=== PATIENT | female | born 1950 | race Caucasian/White ===

== ENCOUNTER 2021-10-27 09:17 | Emergency (ER) | payer MEDICARE ==
[~2021-10-27 09:17] MED LIST: Ondansetron 4 MG/2 ML SDV IVPUSH ONE; Sodium Chloride 0.9% 1,000 ML IV SCH; Sodium Chloride 0.9% 10 ML Syringe FLUSH PRN
[2021-10-27] MEDS ORDERED: Potassium Chloride Riders 40 MEQ in Premix Bag 1 BAG IV ONE (09:45)
--- NOTE | 2021-10-27 10:11 | EDM.PDOC ---
ED HPI GENERAL MEDICAL PROBLEM - General Chief Complaint: General Stated Complaint: diarrhea Time Seen by Provider: 10/27/21 09:17 Source of Information: Reports: Patient History Limitations: Reports: No Limitations - History of Present Illness INITIAL COMMENTS - FREE TEXT/NARRATIVE: Patient presents to the Ed for diarrhea since 10/16. Denies any bad food ingestion, travel, sick contacts or chronic bowel problems. She states nothing makes the diarrhea better or worse, has at least 5 water bowel movements a day. No black, blood or mucous, and her appetite has significantly decreased due to this. Over the last couple of days she has only been drinking fluids and those have been minimal. Urine is dark. she has not seen her provider for this. No fevers or abdominal pain. Is vaccinated for covid 19. Patient has had a slow weight loss without trying of 20 pounds over the last 6 months. she had antibiotics for a foot probelm in August and then on 09/24/2021 she had an iliac stent and was placed on a blood thinner. SHe is taking this. Patient states that in the CT scan prior to this surgery, a mass was seen on her ovary and adrenal gland. She is going to see Dr. Gonzalez in [place] in 3 days for evaluation of this and in preparation for this she had a mri of the adbomen on 10/23/2021. No results yet. She decided to come in today as she is progressively more weak, but no changes in the amount or type of diarrhea Duration: Week(s):, Constant Associated Symptoms: Reports: Loss of Appetite, Weakness - Related Data Allergies Allergy/AdvReac Type Severity Reaction Status Date / Time No Known Allergies Allergy Verified 10/27/21 09:20 Home Meds: Home Meds Amoxicillin/Potassium Clav [Augmentin 875-125 Tablet] 1 each PO BID #20 tablet 10/27/21 [Rx] Clopidogrel [Plavix] 75 mg PO DAILY 10/27/21 [History] Lactobacillus Acidophilus [Probiotic] 1 each PO DAILY #30 capsule 10/27/21 [Rx] Lisinopril/Hydrochlorothiazide [Lisinopril-HCTZ 10-12.5 MG] 1 tab PO DAILY 10/27/21 [History] Potassium Chloride 20 meq PO DAILY #14 tablet.er 10/27/21 [Rx] Rosuvastatin [Crestor] 10 mg PO DAILY 10/27/21 [History] Zolpidem [Ambien] 10 mg PO BEDTIME PRN 10/27/21 [History] rOPINIRole [Requip] 0.5 mg PO BEDTIME 10/27/21 [History] Past Medical History Cardiovascular History: Reports: High Cholesterol Other Gastrointestinal History: pt states "mass around kidney or ovary". Social & Family History - Family History Family Medical History: No Pertinent Family History - Tobacco Use Tobacco Use Status *Q: Never Tobacco User Second Hand Smoke Exposure: No - Caffeine Use Caffeine Use: Reports: None - Recreational Drug Use Recreational Drug Use: No ED ROS GENERAL - Review of Systems Review Of Systems: See Below Constitutional: Reports: Malaise, Weakness, Fatigue, Decreased Appetite, Weight Loss HEENT: Reports: No Symptoms. Denies: Sinus Problem, Throat Pain, Throat Swelling Respiratory: Reports: No Symptoms. Denies: Shortness of Breath, Cough Cardiovascular: Reports: No Symptoms. Denies: Chest Pain, Dyspnea on Exertion, Edema Endocrine: Reports: No Symptoms GI/Abdominal: Reports: Diarrhea, Decreased Appetite, Nausea. Denies: Anorexia, Black Stool, Bloody Stool, Flatus, Hematemesis, Hematochezia, Mucous in Stool, Vomiting : Reports: Other (dark urine) Musculoskeletal: Reports: No Symptoms Skin: Reports: No Symptoms Neurological: Reports: No Symptoms Psychiatric: Reports: No Symptoms Hematologic/Lymphatic: Reports: No Symptoms ED EXAM, GI/ABD - Physical Exam Exam: See Below Exam Limited By: No Limitations General Appearance: Alert, WD/WN, No Apparent Distress Eyes: Bilateral: Normal Appearance, EOMI (perrla) Ears: Normal External Exam Nose: Normal Inspection Throat/Mouth: Normal Lips, Normal Teeth, Normal Voice, Other (dry mucous membranes) Head: Atraumatic, Normocephalic Neck: Normal Inspection Respiratory/Chest: No Respiratory Distress, Lungs Clear, No Accessory Muscle Use Cardiovascular: No Edema, Irregularly Irregular (normal rate) GI/Abdominal Exam: Soft, Non-Tender, No Distention, Abnormal Bowel Sounds (decreased) Extremities: Normal Inspection, Normal Range of Motion, Non-Tender, Other (skin tenting) Neurological: Alert, Oriented, CN II-XII Intact, Normal Cognition, No Mot or/Sensory Deficits Psychiatric: Normal Affect Skin Exam: Warm #1 Interpretation EKG Date: 10/27/21 Rhythm: A-Fib Rate (Beats/Min): 75 Voca: Normal QRS: Normal ST-T: Normal QT: Normal Course - Vital Signs Last Recorded V/S: Last Vital Signs Temp 36.5 C 10/27/21 12:33 Pulse 92 10/27/21 12:33 Resp 18 10/27/21 12:33 BP 104/66 10/27/21 12:33 Pulse Ox 96 10/27/21 12:33 - Orders/Labs/Meds Orders: Active Orders 24 hr Category Date Time Status Peripheral IV Care [RC] . DIRECTED Care 10/27/21 09:05 Active Abdomen Pelvis w Cont [CT] Stat Exams 10/27/21 09:45 Taken C DIFFICILE BY DNA [RM] Stat Lab 10/27/21 09:30 Ordered STOOL CULTURE [MREF] Stat Lab 10/27/21 09:30 Ordered Potassium Chloride Riders [KCL in Water 40 MEQ/100 ML] Med 10/27/21 09:45 Active 40 meq Premix Bag 1 bag IV ONETIME Sodium Chloride 0.9% [Normal Saline] 1,000 ml Med 10/27/21 09:15 Active IV ASDIRECTED Sodium Chloride 0.9% [Normal Saline] 1,000 ml Med 10/27/21 10:15 Active IV ASDIRECTED Sodium Chloride 0.9% [Saline Flush] Med 10/27/21 09:05 Active 10 ml FLUSH ASDIRECTED PRN Isolation [COMM] Stat Oth 10/27/21 09:30 Active Peripheral IV Insertion Adult [OM.PC] Routine Oth 10/27/21 09:05 Ordered Medication Orders Sodium Chloride (Normal Saline) 1,000 mls @ 1,000 mls/hr IV ASDIRECTED [facility] Last Admin: 10/27/21 09:31 Dose: 1,000 mls/hr Documented by: ROB Potassium Chloride 40 meq/ (Premix) 100 mls @ 25 mls/hr IV ONETIME ONE Stop: 10/27/21 13:44 Last Admin: 10/27/21 10:11 Dose: 25 mls/hr Documented by: ROLAND Sodium Chloride (Normal Saline) 1,000 mls @ 1,000 mls/hr IV ASDIRECTED WANDA Sodium Chloride (Sodium Chloride 0.9% 10 Ml Syringe) 10 ml FLUSH ASDIRECTED PRN PRN Reason: Keep Vein Open Labs: Laboratory Tests 10/27/21 10/27/21 10/27/21 Range/Units 09:05 09:05 09:05 WBC 13.1 H (4.0-11.0) 10^3/uL RBC 4.11 (4.00-5.50) x10^6/uL Hgb 11.7 L (12.0-16.0) g/dL Hct 34.7 L (37.0-47.0) % MCV 84.4 (83.0-97.0) fL MCH 28.5 (27.0-32.0) pg MCHC 33.7 (32.0-36.0) g/dL RDW Coeff of Reji 13.6 (11.0-15.0) % Plt Count 339 (150-400) 10^3/uL Immature Gran % (Auto) 0.3 (0.0-4.9) % Neut % (Auto) 77.6 H (41-71) % Lymph % (Auto) 13.6 L (24-44) % [place] % (Auto) 6.9 (0-10) % Eos % (Auto) 1.4 (0-6) % Baso % (Auto) 0.2 (0-1) % Neut # (Auto) 10.21 H (1.80-8.00) x10^3/uL Lymph # (Auto) 1.78 (0.60-5.00) 10^3/uL [place] # (Auto) 0.90 (0.00-1.50) 10^3/uL Eos # (Auto) 0.18 (0.00-1.50) 10^3/uL Baso # (Auto) 0.02 (0.00-0.50) 10^3/uL Immature Gran # (Auto) 0.04 (0.00-0.49) 10^3/uL Sodium 137 (136-145) mEq/L Potassium 2.9 L* D (3.5-5.0) mEq/L Chloride 100 (98-106) mEq/L Carbon Dioxide 23 (21-32) mmol/L BUN 19 H (7-18) mg/dL Creatinine 1.0 (0.6-1.0) mg/dL Est Cr Clr Drug Dosing 45.85 mL/min Estimated GFR (MDRD) 55 L (>=60) mL/min Glucose 109 H (75-99) mg/dL Lactic Acid (0.4-2.0) mmol/L Calcium 8.3 L (8.4-10.1) mg/dL Magnesium 1.9 (1.8-2.4) mg/dL Total Bilirubin 0.2 (0.0-1.0) mg/dL AST 6 L (15-37) U/L ALT 5 L (12-78) U/L Alkaline Phosphatase 109 (46-116) U/L C-Reactive Protein 6.2 H (0.2-0.8) mg/dL Total Protein 6.3 L (6.4-8.2) g/dL Albumin 2.6 L (3.4-5.0) g/dL Lipase 43 L (73-393) U/L Urine Color (YELLOW) Urine Appearance (CLEAR) Urine pH (4.5-8.0) Ur Specific [place] (1.003-1.020) Urine Protein (NEGATIVE) mg/dL Urine Glucose (UA) (NEGATIVE) mg/dL Urine Ketones (NEGATIVE) mg/dL Urine Occult Blood (NEGATIVE) Urine Nitrite (NEGATIVE) Urine Bilirubin (NEGATIVE) Urine Urobilinogen (0.2-1.0) EU/dL Ur Leukocyte Esterase (NEGATIVE) SARS CoV-2 RNA Rapid ISAAC Negative (NEGATIVE) 10/27/21 10/27/21 Range/Units 09:05 11:12 WBC (4.0-11.0) 10^3/uL RBC (4.00-5.50) x10^6/uL Hgb (12.0-16.0) g/dL Hct (37.0-47.0) % MCV (83.0-97.0) fL MCH (27.0-32.0) pg MCHC (32.0-36.0) g/dL RDW Coeff of Reji (11.0-15.0) % Plt Count (150-400) 10^3/uL Immature Gran % (Auto) (0.0-4.9) % Neut % (Auto) (41-71) % Lymph % (Auto) (24-44) % [place] % (Auto) (0-10) % Eos % (Auto) (0-6) % Baso % (Auto) (0-1) % Neut # (Auto) (1.80-8.00) x10^3/uL Lymph # (Auto) (0.60-5.00) 10^3/uL [place] # (Auto) (0.00-1.50) 10^3/uL Eos # (Auto) (0.00-1.50) 10^3/uL Baso # (Auto) (0.00-0.50) 10^3/uL Immature Gran # (Auto) (0.00-0.49) 10^3/uL Sodium (136-145) mEq/L Potassium (3.5-5.0) mEq/L Chloride (98-106) mEq/L Carbon Dioxide (21-32) mmol/L BUN (7-18) mg/dL Creatinine (0.6-1.0) mg/dL Est Cr Clr Drug Dosing mL/min Estimated GFR (MDRD) (>=60) mL/min Glucose (75-99) mg/dL Lactic Acid 0.9 (0.4-2.0) mmol/L Calcium (8.4-10.1) mg/dL Magnesium (1.8-2.4) mg/dL Total Bilirubin (0.0-1.0) mg/dL AST (15-37) U/L ALT (12-78) U/L Alkaline Phosphatase (46-116) U/L C-Reactive Protein (0.2-0.8) mg/dL Total Protein (6.4-8.2) g/dL Albumin (3.4-5.0) g/dL Lipase (73-393) U/L Urine Color Yellow (YELLOW) Urine Appearance Clear (CLEAR) Urine pH 6.0 (4.5-8.0) Ur Specific [place] 1.015 (1.003-1.020) Urine Protein Negative (NEGATIVE) mg/dL Urine Glucose (UA) Negative (NEGATIVE) mg/dL Urine Ketones Negative (NEGATIVE) mg/dL Urine Occult Blood Negative (NEGATIVE) Urine Nitrite Negative (NEGATIVE) Urine Bilirubin Negative (NEGATIVE) Urine Urobilinogen 0.2 (0.2-1.0) EU/dL Ur Leukocyte Esterase Negative (NEGATIVE) SARS CoV-2 RNA Rapid ISAAC (NEGATIVE) Meds: Medications Generic Name Dose Route Start Last Admin Trade Name Freq PRN Reason Stop Dose Admin Sodium Chloride 1,000 mls @ 1,000 mls/hr 10/27/21 09:15 10/27/21 09:31 Normal Saline IV 1,000 mls/hr ASDIRECTED WANDA Administration Potassium Chloride 40 meq/ 100 mls @ 25 mls/hr 10/27/21 09:45 10/27/21 10:11 Premix IV 10/27/21 13:44 25 mls/hr ONETIME ONE Administration Sodium Chloride 1,000 mls @ 1,000 mls/hr 10/27/21 10:15 Normal Saline IV ASDIRECTED WANDA Sodium Chloride 10 ml 10/27/21 09:05 Sodium Chloride 0.9% 10 Ml Syringe FLUSH ASDIRECTED PRN Keep Vein Open Discontinued Medications Generic Name Dose Route Start Last Admin Trade Name Freq PRN Reason Stop Dose Admin Amoxicillin/Clavulanate Potassium 1 packet 10/27/21 12:45 Take Home: Amoxicillin/Clavulanate K 875-125 Mg Tab, 2 Tab Pack PO 10/27/21 12:46 ONETIME ONE Amoxicillin/Clavulanate Potassium 1 tab 10/27/21 12:46 Amoxicillin/Clavulanate K 875-125 Mg Tab PO 10/27/21 12:47 ONETIME ONE Diphenoxylate HCl/Atropine 2 tab 10/27/21 12:45 Atropine/Diphenoxylate 0.025-2.5 Mg Tab PO 10/27/21 12:46 ONETIME ONE Iopamidol 100 ml 10/27/21 10:59 10/27/21 11:00 Iopamidol 755 Mg/Ml 100 Ml Bottle IVPUSH 10/27/21 11:00 100 ml ONETIME ONE Administration Lidocaine HCl Confirm 10/27/21 11:23 Lidocaine 1% 5 Ml Sdv Administered 10/27/21 11:24 Dose 5 ml .ROUTE .STK-MED ONE Ondansetron HCl 4 mg 10/27/21 09:05 10/27/21 09:31 Ondansetron 4 Mg/2 Ml Sdv IVPUSH 10/27/21 09:06 4 mg ONETIME ONE Administration - Radiology Interpretation Free Text/Narrative:: MRI from 10/23 is interpreted and findings with left adrenal nodule 2.1x1.4 cm consistent with a lipid poor adenoma, benign cysts in both kidneys, infrarenal adominal aortic aneurysm 4.1 cm with mural plaque/thrombus resulting in mild stenosis and questionable stenosis at the origin of the celiac artery Interpreted by radiology Ct abdomen and pelvis with IV contrast with 2.2 adrenal nodule consistent with above MRI on the left adrenal gland. large right adenexal mass 8.2x6.3 cm, infrarenal abdominal aoritic aneurysm 4.2 cm with circumferential plaque/thrombus resulting in mild stenosis. , diverticulosis with short segment wall thickening involving sigmoid colon which may represent colitis. colonoscopy recommended. endplate fractures of 12 and L1 - Re-Assessments/Exams Free Text/Narrative Re-Assessment/Exam: will start iv fluids as clinicaly dry with slightly low blood pressure at 99/52. will also give zofran 4 mg IVP. Needs labs, covid test, ct abdomen and pelvis with iv contrast. Attempted to call [facility] to read her MRI. 10/27/21 10:13 Potassium is low, will give a rider of 40 meq, continue IV fluids. slight elevation of the white blood cell count, normal mag and lactic. 10/27/21 10:[address] 10/27/21 12:09 Extensive findings communicated to the patent. Will treat the colitis with augmentin and probitoics. use imodium for diarrhea. needs to increase potassium in the diet and recheck thursday at . Discussed the adrenal mass that is least of the concerns. Discussed the ovarian mass that is getting addressed in three days discussed the endplate fractures and pain management. Discussed the aneursym and need to follow up noel with the vascular surgeon, sounds like Dr. irvin has been watching this and will follow up in november ,.. Discussed need for colonoscopy which I am sure CONTRACTS REPRESENTATIVE would also discuss prior to surgery. did feed her a little to try to get a stool sample and this was obtained. 10/27/21 13:05 Did relay all this information to the . he will pick her up,. 10/27/21 13:06 blood pressure improved to 115/76 Departure - Departure Time of Disposition: 14:00 Disposition: Home, Self-Care 01 Condition: Fair Clinical Impression: Diarrhea, Hypokalemia, Colitis, Abdominal aortic aneurysm (AAA) 3.0 cm to 5.0 cm in diameter in female, Defect of endplate of vertebra, Diverticulosis, Adrenal adenoma, Adnexal mass - Discharge Information *PRESCRIPTION DRUG MONITORING PROGRAM REVIEWED*: Not Applicable *COPY OF PRESCRIPTION DRUG MONITORING REPORT IN PATIENT VERITO: Not Applicable Prescriptions: Amoxicillin/Potassium Clav [Augmentin 875-125 Tablet] 1 each PO BID #20 tablet Potassium Chloride 20 meq PO DAILY #14 tablet.er Lactobacillus Acidophilus [Probiotic] 1 each PO DAILY #30 capsule Instructions: Adrenal Adenoma, Abdominal Aortic Aneurysm, [id number], Hypokalemia, Food Choices to Help Relieve Diarrhea, Adult, Potassium Content of Foods, Colitis, Diverticulosis, Diarrhea, Adult, [id number], Pelvic Mass, Female Referrals: Flaquita Herron PA [Primary Care Provider] - Forms: ED Department Discharge Additional Instructions: 1.You have inflammation of a section of your colon (Colitis) and you are prescribed augmentin to take twice a day for 11 days ( you were given a dose in the hospital and a tablet for this evening and tomorrow morning-then fill prescription) and a probiotic that you need to take the entire time ( 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 colonoscopy lieberman been recommended for follow up , schedule this with your provider 2. your adrenal mass is diagnosed as a lipid poor adrenal adenoma of 2.1 cm. follow up with your PCP 3. You have a large adenexal ( ovarian) mass on the right measuring 8.2 cm. Keep appointment with Dr. Gonzalez for this on Thursday. 4. Stool sample will be analyzed for further problems You will be contacted as to needs for treatment 5. your potassium was low at 2.9 today. You were given 40 meq in the IV. You need to take oral potassium tablet, electrolyte solutions and greatly increase the potassium content of food. Recheck your electrolyte levels this week. 6. You do have some endplate fractures of vertebrae T12 and L1. These may cause back pain and need follow up with PCP for pain 7. You have an abdominal aneurysm below the renal artery that is 4.2 cm. Follow up with your vascular surgeon this week about this, make Dr. Irvin aware of the recent CT scan. 8. You can take up to four immodium tablets a day for the diarrhea. You were given two in the ED. Sepsis Event Note (ED) - Evaluation Sepsis Screening Result: No Definite Risk - Focused Exam Vital Signs: Vital Signs Temp Pulse Resp BP Pulse Ox 10/27/21 12:33 36.5 C 92 18 104/66 96 10/27/21 09:17 36.0 C L 88 18 99/52 L 96 - My Orders Last 24 Hours: My Active Orders 10/27/21 09:05 Peripheral IV Care [RC] . DIRECTED Sodium Chloride 0.9% [Saline Flush] 10 ml FLUSH ASDIRECTED PRN Peripheral IV Insertion Adult [OM.PC] Routine 10/27/21 09:15 Sodium Chloride 0.9% [Normal Saline] 1,000 ml IV ASDIRECTED 10/27/21 09:30 C DIFFICILE BY DNA [RM] Stat STOOL CULTURE [MREF] Stat Isolation [COMM] Stat 10/27/21 09:45 Abdomen Pelvis w Cont [CT] Stat Potassium Chloride Riders [KCL in Water 40 MEQ/100 ML] 40 meq Premix Bag 1 bag IV ONETIME 10/27/21 10:15 Sodium Chloride 0.9% [Normal Saline] 1,000 ml IV ASDIRECTED - Assessment/Plan Last 24 Hours: My Active Orders 10/27/21 09:05 Peripheral IV Care [RC] . DIRECTED Sodium Chloride 0.9% [Saline Flush] 10 ml FLUSH ASDIRECTED PRN Peripheral IV Insertion Adult [OM.PC] Routine 10/27/21 09:15 Sodium Chloride 0.9% [Normal Saline] 1,000 ml IV ASDIRECTED 10/27/21 09:30 C DIFFICILE BY DNA [RM] Stat STOOL CULTURE [MREF] Stat Isolation [COMM] Stat 10/27/21 09:45 Abdomen Pelvis w Cont [CT] Stat Potassium Chloride Riders [KCL in Water 40 MEQ/100 ML] 40 meq Premix Bag 1 bag IV ONETIME 10/27/21 10:15 Sodium Chloride 0.9% [Normal Saline] 1,000 ml IV ASDIRECTED
[2021-10-27] MEDS ORDERED: Sodium Chloride 0.9% 1,000 ML IV SCH (10:15)
[2021-10-27] MEDS ORDERED: Iopamidol 755 Mg/ML 100 ML Bottle IVPUSH ONE (10:59)
[2021-10-27] MEDS ORDERED: Take Home: Amoxicillin/Clavulanate K 875-125 MG Tab, 2 Tab Pack PO ONE (12:45)
[2021-10-27] MEDS ORDERED: Atropine/Diphenoxylate 0.025-2.5 MG Tab PO ONE (12:45)
[2021-10-27] MEDS ORDERED: Amoxicillin/Clavulanate K 875-125 MG Tab PO ONE (12:46)
== END 2021-10-27 14:25 | disposition home or self-care (01) ==
LOC: CC.ED 09:17
DX: K52.9 Noninfective gastroenteritis and colitis, unspecified (principal); I71.4 Abdominal aortic aneurysm, without rupture; K57.90 Diverticulosis of intestine, part unspecified, without perforation or abscess without bleeding; D35.02 Benign neoplasm of left adrenal gland; E87.6 Hypokalemia; E78.00 Pure hypercholesterolemia, unspecified; Z79.02 Long term (current) use of antithrombotics/antiplatelets; Z79.899 Other long term (current) drug therapy; Z20.822 Contact with and (suspected) exposure to COVID-19
CPT/HCPCS: 36415; 74177; 80053; 81003; 83605; 83690; 83735; 85025; 86140; 93005; 96365; 96366; 96375; 99285-25; A9270-GY; J2405; J3480; J7030; Q9967; U0002

== ENCOUNTER 2021-10-29 01:22 | Emergency (ER) | payer MEDICARE ==
[2021-10-29] MEDS ORDERED: fentaNYL 50 MCG/ML SDV ONE (01:36)
[2021-10-29] MEDS ORDERED: fentaNYL 50 MCG/ML SDV IVPUSH ONE ×2 (01:47→01:55)
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
[2021-10-29 02:28] LABS: PTT,PARTIAL THROMBOPLSTIN TIME 23.2 SEC (23.2-32.3)
[2021-10-29 02:30] LABS: CHLORIDE,CL 104 mEq/L (98-106); SODIUM,NA 141 mEq/L (136-145)
[2021-10-29] MEDS ORDERED: HYDROmorphone 1 MG/ML Syringe IVPUSH ONE (02:55)
== END 2021-10-29 04:20 ==
LOC: CC.ED 01:22
DX: S72.002A Fracture of unspecified part of neck of left femur, initial encounter for closed fracture (principal); L97.529 Non-pressure chronic ulcer of other part of left foot with unspecified severity; Z79.02 Long term (current) use of antithrombotics/antiplatelets; Z79.899 Other long term (current) drug therapy; Z20.822 Contact with and (suspected) exposure to COVID-19; W18.39XA Other fall on same level, initial encounter; Y92.009 Unspecified place in unspecified non-institutional (private) residence as the place of occurrence of the external cause
CPT/HCPCS: 36415; 51702; 80053; 85025; 85610; 85730; 96374; 96375; 99285-25; J1170; J3010; U0002

== ENCOUNTER 2021-11-05 10:16 | Inpatient (IN) | payer MEDICARE ==
[2021-11-05] MEDS ORDERED: Temazepam 15 MG Cap PO PRN (16:00)
[2021-11-05] MEDS: Ciprofloxacin 500 MG Tab PO SCH (19:14)
[2021-11-05] MEDS: rOPINIRole 1 MG Tab PO SCH (19:57)
[2021-11-05] MEDS: traMADol 50 MG Tab PO PRN (19:58)
[2021-11-05] MEDS: Simvastatin 40 MG Tab PO SCH (19:58)
[2021-11-05] MEDS: Zolpidem 5 MG Tab PO PRN (20:04)
--- NOTE | 2021-11-05 21:13 | HP ---
HISTORY OF PRESENT ILLNESS: The patient is a 71-year-old female who presented with a closed hip fracture on 10/29 and was sent for repair. She had an uneventful ORIF of the hip and is now in [place] for a swing bed placement and rehab. PAST MEDICAL HISTORY: Includes a history of hypertension, hyperlipidemia, depression, adrenal adenoma, prior adnexal mass. She has had prior fractures of both her and radius and ischemia of her left foot in the past. PAST SURGICAL HISTORY: Includes an aorto-pelvic arteriogram, a humerus fracture surgery, a wrist fracture surgery. ALLERGIES: NONE. MEDICATIONS: See chart. SOCIAL HISTORY: I believe the patient is a non smoker, nondrinker, previously independent in her own home. REVIEW OF SYSTEMS: Negative. She denies that she has had any fevers, chills, cough, chest pain, or shortness of breath. Denies any issues with constipation since her surgery. Has not had any skin rashes, cellulitis, erythema. PHYSICAL EXAMINATION: GENERAL: She is pleasant, alert, and cooperative. HEENT: Grossly benign. NECK: Supple. No adenopathy felt. No supraclavicular nodes. LUNGS: Sounds are clear anteriorly. CARDIAC: Tones are regular. ABDOMEN: Soft, obese, and nontender. Good bowel sounds heard. EXTREMITIES: The left hip incision is covered and there is no obvious erythema. There is minimal swelling to the left lower extremity, and she moves all digits without problem. ASSESSMENT: 1. STATUS POST OPEN REDUCTION AND INTERNAL FIXATION OF LEFT HIP FRACTURE. 2. POSTOP ANEMIA. 3. POSTOP HYPOKALEMIA. 4. 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 5. RIGHT ADNEXAL MASS, RECENTLY FOUND DURING ADMISSION. 6. LEFT ADRENAL ADENOMA. 7. HYPERTENSION. 8. ANXIETY AND DEPRESSION. 9. HYPERLIPIDEMIA. 10.HISTORY OF RESTLESS LEGS SYNDROME. PLAN: The patient will be admitted, routine orders provided. PT will be consulted. No anticipated changes. She is on Zestoretic, and I believe that has been held since her surgery. Her blood pressures have been actually on the low end and so we will continue to hold that now. JIMENA/GONZALO /[id number]
[2021-11-06] MEDS: Ciprofloxacin 500 MG Tab PO SCH ×2 (06:46→18:33)
[2021-11-06] MEDS: Calcium Carbonate/Vitamin D3 1250 MG-5 MCG Tab PO SCH (07:33)
[2021-11-06] MEDS: Aspirin 81 MG Tab.EC PO SCH (07:33)
[2021-11-06] MEDS: Citalopram 10 MG Tab PO SCH (07:33)
[2021-11-06] MEDS: Clopidogrel 75 MG Tab PO SCH (07:34)
[2021-11-06] MEDS: traMADol 50 MG Tab PO PRN ×2 (13:18→19:32)
[2021-11-06] MEDS: rOPINIRole 1 MG Tab PO SCH (19:31)
[2021-11-06] MEDS: Simvastatin 40 MG Tab PO SCH (19:32)
[2021-11-06] MEDS: Zolpidem 5 MG Tab PO PRN (19:33)
[2021-11-06] MEDS ORDERED: Enoxaparin 40 MG/0.4 ML Syringe SUBCUT SCH (20:00)
[2021-11-07] MEDS: Ciprofloxacin 500 MG Tab PO SCH ×2 (06:14→18:50)
[2021-11-07] MEDS: Aspirin 81 MG Tab.EC PO SCH (07:57)
[2021-11-07] MEDS: Citalopram 10 MG Tab PO SCH (07:58)
[2021-11-07] MEDS: Calcium Carbonate/Vitamin D3 1250 MG-5 MCG Tab PO SCH (07:58)
[2021-11-07] MEDS: traMADol 50 MG Tab PO PRN ×3 (07:58→18:49)
[2021-11-07] MEDS: Clopidogrel 75 MG Tab PO SCH (07:58)
[2021-11-07] MEDS: rOPINIRole 1 MG Tab PO SCH (19:50)
[2021-11-07] MEDS: Simvastatin 40 MG Tab PO SCH (19:51)
[2021-11-07] MEDS: Zolpidem 5 MG Tab PO PRN (19:51)
[2021-11-08] MEDS: Ciprofloxacin 500 MG Tab PO SCH ×2 (06:15→18:39)
[2021-11-08] MEDS: Calcium Carbonate/Vitamin D3 1250 MG-5 MCG Tab PO SCH (07:07)
[2021-11-08] MEDS: Aspirin 81 MG Tab.EC PO SCH (07:08)
[2021-11-08] MEDS: Clopidogrel 75 MG Tab PO SCH (07:08)
[2021-11-08] MEDS: Citalopram 10 MG Tab PO SCH (07:08)
[2021-11-08] MEDS: traMADol 50 MG Tab PO PRN (14:38)
[2021-11-08] MEDS: Acetaminophen 325 MG Tab PO PRN (16:51)
[2021-11-08] MEDS: rOPINIRole 1 MG Tab PO SCH (19:27)
[2021-11-08] MEDS: Simvastatin 40 MG Tab PO SCH (19:27)
[2021-11-08] MEDS: Zolpidem 5 MG Tab PO PRN (19:28)
[2021-11-09] MEDS: Ciprofloxacin 500 MG Tab PO SCH ×2 (06:07→18:11)
[2021-11-09] MEDS: Calcium Carbonate/Vitamin D3 1250 MG-5 MCG Tab PO SCH (08:17)
[2021-11-09] MEDS: Citalopram 10 MG Tab PO SCH (08:18)
[2021-11-09] MEDS: Clopidogrel 75 MG Tab PO SCH (08:19)
[2021-11-09] MEDS: Aspirin 81 MG Tab.EC PO SCH (08:19)
[2021-11-09] MEDS: traMADol 50 MG Tab PO PRN ×2 (13:53→19:01)
[2021-11-09] MEDS: Simvastatin 40 MG Tab PO SCH (19:28)
[2021-11-09] MEDS: Zolpidem 5 MG Tab PO PRN (19:28)
[2021-11-09] MEDS: rOPINIRole 1 MG Tab PO SCH (19:28)
[2021-11-10] MEDS: Ciprofloxacin 500 MG Tab PO SCH ×2 (06:56→19:00)
[2021-11-10] MEDS: Aspirin 81 MG Tab.EC PO SCH (07:48)
[2021-11-10] MEDS: Calcium Carbonate/Vitamin D3 1250 MG-5 MCG Tab PO SCH (07:48)
[2021-11-10] MEDS: Citalopram 10 MG Tab PO SCH (07:48)
[2021-11-10] MEDS: Clopidogrel 75 MG Tab PO SCH (07:48)
[2021-11-10] MEDS: rOPINIRole 1 MG Tab PO SCH (19:55)
[2021-11-10] MEDS: traMADol 50 MG Tab PO PRN (19:56)
[2021-11-10] MEDS: Zolpidem 5 MG Tab PO PRN (19:56)
[2021-11-10] MEDS: Simvastatin 40 MG Tab PO SCH (19:56)
[2021-11-11] MEDS: Calcium Carbonate/Vitamin D3 1250 MG-5 MCG Tab PO SCH (08:14)
[2021-11-11] MEDS: traMADol 50 MG Tab PO PRN ×3 (08:14→20:21)
[2021-11-11] MEDS: Clopidogrel 75 MG Tab PO SCH (08:14)
[2021-11-11] MEDS: Citalopram 10 MG Tab PO SCH (08:14)
[2021-11-11] MEDS: Aspirin 81 MG Tab.EC PO SCH (08:14)
[2021-11-11] MEDS: rOPINIRole 1 MG Tab PO SCH (20:21)
[2021-11-11] MEDS: Zolpidem 5 MG Tab PO PRN (20:22)
[2021-11-11] MEDS: Simvastatin 40 MG Tab PO SCH (20:22)
[2021-11-12] MEDS: Clopidogrel 75 MG Tab PO SCH (07:53)
[2021-11-12] MEDS: Citalopram 10 MG Tab PO SCH (07:53)
[2021-11-12] MEDS: Calcium Carbonate/Vitamin D3 1250 MG-5 MCG Tab PO SCH (07:53)
[2021-11-12] MEDS: Aspirin 81 MG Tab.EC PO SCH (07:53)
[2021-11-12] MEDS: traMADol 50 MG Tab PO PRN ×2 (13:48→19:58)
[2021-11-12] MEDS: rOPINIRole 1 MG Tab PO SCH (19:57)
[2021-11-12] MEDS: Simvastatin 40 MG Tab PO SCH (19:58)
[2021-11-12] MEDS: Zolpidem 5 MG Tab PO PRN (19:58)
[2021-11-13] MEDS: Calcium Carbonate/Vitamin D3 1250 MG-5 MCG Tab PO SCH (07:28)
[2021-11-13] MEDS: Citalopram 10 MG Tab PO SCH (07:29)
[2021-11-13] MEDS: Clopidogrel 75 MG Tab PO SCH (07:29)
[2021-11-13] MEDS: Aspirin 81 MG Tab.EC PO SCH (07:29)
[2021-11-13] MEDS: traMADol 50 MG Tab PO PRN (15:21)
[2021-11-13] MEDS: Simvastatin 40 MG Tab PO SCH (20:13)
[2021-11-13] MEDS: rOPINIRole 1 MG Tab PO SCH (20:13)
[2021-11-13] MEDS: Zolpidem 5 MG Tab PO PRN (20:13)
[2021-11-14] MEDS: Calcium Carbonate/Vitamin D3 1250 MG-5 MCG Tab PO SCH (07:33)
[2021-11-14] MEDS: Citalopram 10 MG Tab PO SCH (07:34)
[2021-11-14] MEDS: traMADol 50 MG Tab PO PRN ×2 (07:34→16:34)
[2021-11-14] MEDS: Aspirin 81 MG Tab.EC PO SCH (07:34)
[2021-11-14] MEDS: Clopidogrel 75 MG Tab PO SCH (07:34)
[2021-11-14] MEDS: Acetaminophen 325 MG Tab PO PRN ×2 (12:57→19:47)
[2021-11-14] MEDS: Simvastatin 40 MG Tab PO SCH (19:47)
[2021-11-14] MEDS: rOPINIRole 1 MG Tab PO SCH (19:47)
[2021-11-14] MEDS: Zolpidem 5 MG Tab PO PRN (19:54)
[2021-11-15] MEDS: Citalopram 10 MG Tab PO SCH (07:32)
[2021-11-15] MEDS: traMADol 50 MG Tab PO PRN (07:32)
[2021-11-15] MEDS: Clopidogrel 75 MG Tab PO SCH (07:32)
[2021-11-15] MEDS: Aspirin 81 MG Tab.EC PO SCH (07:33)
[2021-11-15] MEDS: Calcium Carbonate/Vitamin D3 1250 MG-5 MCG Tab PO SCH (07:33)
--- NOTE | 2021-11-15 10:24 | PCM.DCSUM1 ---
Discharge Summary - Hospital Course Free Text/Narrative:: Mrs. Garrido is a 71 year old female that fractured her left hip on 10-29 with subsequent ORIF at [facility] in [place]. Patient returned to [facility] for swingbed admission. Has been working with physical therapy and showing improvement. Patient states her pain has been controlled with oral pain medication that she has been using as needed. States she is ready to go home to continue therapy with the aide of home health. States she has been working on taking stairs as there is 3 steps going into her house. Feels well otherwise and denies any fever or other signs of illness. States her strength is improving slowly. Diagnosis: Stroke: No Modified [place] Scale: No Symptoms at All Modified Pierron Scale Score: 0 - Discharge Data Discharge Date: 11/15/21 Discharge Disposition: Home, W Home Health Agency 06 Condition: Good - Referral to Home Health Date of Face to Face Encounter: 11/15/21 Reason for Homebound Status: S/P hip fracture Primary Care Physician: VIVEK Hastings Skilled Need: Nursing to monitor blood pressure, wound healing and pain control. PT and OT for ADLS, ambulation. - Patient Summary/Data Consults: Consultations 11/05/21 16:00 PT Evaluation and Treatment [CONS] Routine - Patient Instructions Diet: Usual Diet as Tolerated Activity: As Tolerated - Discharge Plan *PRESCRIPTION DRUG MONITORING PROGRAM REVIEWED*: No *COPY OF PRESCRIPTION DRUG MONITORING REPORT IN PATIENT VERITO: No Prescriptions/Med Rec: Calcium Carbonate/Vitamin D3 [Calcium Carbonate/Vitamin D 1250 MG - 5 MCG] 2 tab PO DAILY #60 tablet Citalopram [Citalopram HBr] 20 mg PO DAILY #30 tablet traMADol [Ultram] 50 mg PO Q6H PRN #60 tablet PRN Reason: Pain (Moderate 4-6) Home Medications: Home Meds Clopidogrel [Plavix] 75 mg PO DAILY 10/27/21 [History] Lactobacillus Acidophilus [Probiotic] 1 each PO DAILY #30 capsule 10/27/21 [Rx] Lisinopril/Hydrochlorothiazide [Lisinopril-HCTZ 10-12.5 MG] 1 tab PO DAILY 10/27/21 [History] Potassium Chloride 20 meq PO DAILY #14 tablet.er 10/27/21 [Rx] Rosuvastatin [Crestor] 10 mg PO DAILY 10/27/21 [History] Zolpidem [Ambien] 10 mg PO BEDTIME PRN 10/27/21 [History] rOPINIRole [Requip] 0.5 mg PO BEDTIME 10/27/21 [History] Aspirin [Aspirin EC] 81 mg PO DAILY 11/05/21 [History] Calcium Carbonate/Vitamin D3 [Calcium Carbonate/Vitamin D 1250 MG - 5 MCG] 2 tab PO DAILY #60 tablet 11/15/21 [Rx] Citalopram [Citalopram HBr] 20 mg PO DAILY #30 tablet 11/15/21 [Rx] traMADol [Ultram] 50 mg PO Q6H PRN #60 tablet 11/15/21 [Rx] Referrals: Flaquita Herron PA [Primary Care Provider] - (Follow up with Ritu in 2 weeks) - Discharge Summary/Plan Comment DC Time >30 min.: No Total # of Minutes for Discharge Time: 30 - General Info Functional Status: Reports: Pain Controlled - Review of Systems General: Reports: No Symptoms. Denies: Fever, Weakness HEENT: Reports: No Symptoms. Denies: Headaches, Visual Changes Pulmonary: Denies: Shortness of Breath, Cough Cardiovascular: Denies: Chest Pain, Dyspnea on Exertion, Lightheadedness Gastrointestinal: Denies: Abdominal Pain, Nausea, Vomiting Genitourinary: Denies: Dysuria, Frequency Musculoskeletal: Reports: Other (left hip pain at times) Skin: Reports: No Symptoms Neurological: Reports: No Symptoms Psychiatric: Reports: No Symptoms - Patient Data Vitals - Most Recent: Last Vital Signs Temp 98.4 F 11/15/21 08:00 Pulse 73 11/15/21 08:00 Resp 18 11/15/21 08:00 BP 132/66 11/15/21 08:00 Pulse Ox 96 11/15/21 08:00 Weight - Most Recent: 172 lb 1.6 oz Med Orders - Current: Current Medications Acetaminophen (Acetaminophen 325 Mg Tab) 650 mg PO Q4H PRN PRN Reason: Pain (Mild 1-3)/fever Last Admin: 11/14/21 19:47 Dose: 650 mg Documented by: Aspirin (Aspirin 81 Mg Tab.Ec) 81 mg PO DAILY WANDA Last Admin: 11/15/21 07:33 Dose: 81 mg Documented by: Calcium Carbonate (Calcium Carbonate/Vitamin D3 1250 Mg-5 Mcg Tab) 2 tab PO DAILY [facility] Last Admin: 11/15/21 07:33 Dose: 2 tab Documented by: Citalopram Hydrobromide (Citalopram 10 Mg Tab) 20 mg PO DAILY [facility] Last Admin: 11/15/21 07:32 Dose: 20 mg Documented by: Clopidogrel Bisulfate (Clopidogrel 75 Mg Tab) 75 mg PO DAILY [facility] Last Admin: 11/15/21 07:32 Dose: 75 mg Documented by: Ropinirole HCl (Ropinirole 1 Mg Tab) 0.5 mg PO BEDTIME [facility] Last Admin: 11/14/21 19:47 Dose: 0.5 mg Documented by: Simvastatin (Simvastatin 40 Mg Tab) 40 mg PO BEDTIME [facility] Last Admin: 11/14/21 19:47 Dose: 40 mg Documented by: Tramadol HCl (Tramadol 50 Mg Tab) 50 mg PO Q6H PRN PRN Reason: Pain (moderate 4-6) Last Admin: 11/15/21 07:32 Dose: 50 mg Documented by: Zolpidem Tartrate (Zolpidem 5 Mg Tab) 10 mg PO BEDTIME PRN PRN Reason: Sleep Last Admin: 11/14/21 19:54 Dose: 10 mg Documented by: Discontinued Medications Ciprofloxacin (Ciprofloxacin 500 Mg Tab) 500 mg PO 0700,1900 [facility] Stop: 11/10/21 23:59 Last Admin: 11/10/21 19:00 Dose: 500 mg Documented by: Enoxaparin Sodium (Enoxaparin 40 Mg/0.4 Ml Syringe) 40 mg SUBCUT Q24H [facility] Last Admin: 11/06/21 19:30 Dose: 40 mg Documented by: - Exam General: Reports: Alert, Oriented, No Acute Distress HEENT: Reports: Pupils Equal, Pupils Reactive Neck: Reports: Supple Lungs: Reports: Clear to Auscultation, Normal Respiratory Effort. Denies: Crackles, Rales, Rhonchi Cardiovascular: Reports: Regular Rate, Regular Rhythm, No Murmurs GI/Abdominal Exam: Normal Bowel Sounds, Soft, Non-Tender (Female) Exam: Deferred Rectal (Female) Exam: Deferred Back Exam: Reports: Normal Inspection Extremities: Normal Inspection, No Pedal Edema, Normal Capillary Refill. No: Increased Warmth, Redness Skin: Reports: Warm, Dry, Intact Wound/Incisions: Reports: Healing Well Neurological: Reports: No New Focal Deficit Psy/Mental Status: Reports: Alert, Normal Affect, Normal Mood
== END 2021-11-15 11:00 | disposition home health service (06) | DRG 561 ==
LOC: CC.MS 12:30 → UNDOADMIN 12:30 → CC.MS 16:00
PROVIDERS: ADMIT Family Medicine; ATTEND Family Medicine
DX: S72.002D Fracture of unspecified part of neck of left femur, subsequent encounter for closed fracture with routine healing (principal); I10 Essential (primary) hypertension; E78.5 Hyperlipidemia, unspecified; F32.A Depression, unspecified; D35.00 Benign neoplasm of unspecified adrenal gland; D64.9 Anemia, unspecified; E87.6 Hypokalemia; I73.9 Peripheral vascular disease, unspecified; F41.9 Anxiety disorder, unspecified; G25.81 Restless legs syndrome; Z79.82 Long term (current) use of aspirin; Z98.890 Other specified postprocedural states; Z79.899 Other long term (current) drug therapy
CPT/HCPCS: 97110-GP; 97116-GP; 97161-GP; 97530-GP; A9270-GY; J1650

== ENCOUNTER 2021-11-19 05:29 | Inpatient (IN) | payer MEDICARE ==
--- NOTE | 2021-11-19 06:39 | EDM.PDOC ---
<Shelley De La O - Last Filed: 11/19/21 07:15> ED HPI GENERAL MEDICAL PROBLEM - General Chief Complaint: General Stated Complaint: fall Time Seen by Provider: 11/19/21 06:25 Source of Information: Reports: Patient, RN History Limitations: Reports: No Limitations - History of Present Illness INITIAL COMMENTS - FREE TEXT/NARRATIVE: States that she slipped off the bed this morning getting up to go to the . She had a recent hip fracture that she is concerned about reinjury to. She denies any pain to the hip at this time. She called ambulance to help her off the floor as her couldn't do it on his own. She states that she feels "a little" dizzy this morning. Staff relates that she just went home from the hospital last Thursday. She had the same symptoms in the hospital. She does have some depression and admits that she does feel depressed. She is taking her meds. Onset: Today Location: Reports: Lower Extremity, Left - Related Data Allergies Allergy/AdvReac Type Severity Reaction Status Date / Time No Known Allergies Allergy Verified 11/19/21 15:06 Home Meds: Home Meds Clopidogrel [Plavix] 75 mg PO DAILY 10/27/21 [History] Lactobacillus Acidophilus [Probiotic] 1 each PO DAILY #30 capsule 10/27/21 [Rx] Lisinopril/Hydrochlorothiazide [Lisinopril-HCTZ 10-12.5 MG] 1 tab PO DAILY 10/27/21 [History] Potassium Chloride 20 meq PO DAILY #14 tablet.er 10/27/21 [Rx] Rosuvastatin [Crestor] 10 mg PO DAILY 10/27/21 [History] Zolpidem [Ambien] 10 mg PO BEDTIME PRN 10/27/21 [History] rOPINIRole [Requip] 0.5 mg PO BEDTIME 10/27/21 [History] Calcium Carbonate/Vitamin D3 [Calcium Carbonate/Vitamin D 1250 MG - 5 MCG] 2 tab PO DAILY #60 tablet 11/15/21 [Rx] Citalopram [Citalopram HBr] 20 mg PO DAILY #30 tablet 11/15/21 [Rx] traMADol [Ultram] 50 mg PO Q6H PRN #60 tablet 11/15/21 [Rx] Past Medical History Cardiovascular History: Reports: High Cholesterol Gastrointestinal History: Reports: Other (See Below) Other Gastrointestinal History: pt states "mass around kidney or ovary". - Infectious Disease History Infectious Disease History: Reports: None Social & Family History - Family History Family Medical History: No Pertinent Family History - Tobacco Use Tobacco Use Status *Q: Never Tobacco User Second Hand Smoke Exposure: No - Caffeine Use Caffeine Use: Reports: Coffee ED ROS GENERAL - Review of Systems Review Of Systems: See Below Constitutional: Reports: Weakness. Denies: Fever, Chills HEENT: Reports: No Symptoms Respiratory: Reports: No Symptoms Cardiovascular: Reports: No Symptoms GI/Abdominal: Reports: No Symptoms Musculoskeletal: Reports: Leg Pain Neurological: Reports: No Symptoms ED EXAM, GENERAL - Physical Exam Exam: See Below Exam Limited By: No Limitations General Appearance: Alert, WD/WN, Anxious Ears: Normal External Exam, Normal Canal, Normal TMs Nose: Normal Inspection Throat/Mouth: Normal Inspection, Normal Oropharynx Head: Atraumatic, Normocephalic Neck: Normal Inspection, Supple, Non-Tender Respiratory/Chest: No Respiratory Distress, Lungs Clear, Normal Breath Sounds Cardiovascular: Regular Rate, Rhythm, No Edema GI/Abdominal: Normal Bowel Sounds, Soft, Non-Tender Back Exam: Normal Inspection Extremities: Non-Tender, No Pedal Edema, Other (She is able to ambulate with assist to hold on as she does not have a walker with her. She was able to bear weight to the bathroom.) Neurological: Alert, Oriented Course - Re-Assessments/Exams Free Text/Narrative Re-Assessment/Exam: 11/19/21 07:15 In to discuss low K+ level. She will stay as extended stay ER and receive 40 meq of potassium IV and then if stable will be discharged home. Will need to increase her home K+ at discharge. Departure - Departure Disposition: Refer to Observation Clinical Impression: Fever of unknown origin, Hypokalemia, Weakness Fall in home Qualifiers: Encounter type: initial encounter Qualified Code(s): W19.XXXA - Unspecified fall, initial encounter; Y92.009 - Unspecified place in unspecified non- institutional (private) residence as the place of occurrence of the external cause Depression Qualifiers: Depression Type: major depressive disorder Major depression recurrence: unspecified whether recurrent Active/Remission status: currently active Major depression episode severity: severe Psychotic features: without psychotic features Qualified Code(s): F32.2 - Major depressive disorder, single episode, severe without psychotic features - Discharge Information Sepsis Event Note (ED) - Evaluation Sepsis Screening Result: No Definite Risk - Problem List & Annotations (1) Fall in home SNOMED Code(s): 71081990 Code(s): W19.XXXA - UNSPECIFIED FALL, INITIAL ENCOUNTER; Y92.009 - UNSP PLACE IN UNSP NON-INSTITUT (PRIVATE) RESIDENCE PLACE Status: Acute Priority: High Current Visit: Yes Qualifiers: Encounter type: initial encounter Qualified Code(s): W19.XXXA - Unspecified fall, initial encounter; Y92.009 - Unspecified place in unspecified non- institutional (private) residence as the place of occurrence of the external c ause (2) Hypokalemia SNOMED Code(s): 40548441 Code(s): E87.6 - HYPOKALEMIA Status: Acute Priority: High Current Visit: No - Problem List Review Problem List Initiated/Reviewed/Updated: Yes <Serina Massey - Last Filed: 11/19/21 17:03> Course - Vital Signs Last Recorded V/S: Last Vital Signs Temp 101.7 F H 11/19/21 16:00 Pulse 80 11/19/21 16:00 Resp 16 11/19/21 16:00 BP 114/50 L 11/19/21 16:00 Pulse Ox 94 L 11/19/21 16:00 - Orders/Labs/Meds Orders: Active Orders 24 hr Category Date Time Status Intake and Output [RC] 0600,1800 Care 11/19/21 15:00 Active Oxygen Therapy [RC] .PRN Care 11/19/21 15:00 Active Pulse Oximetry [RC] .PRN Care 11/19/21 15:00 Active Up With Assistance [RC] .PRN Care 11/19/21 15:00 Active Vital Signs [RC] 0000,0400,0800,1200,1600,2000,0000 Care 11/19/21 15:00 Active Chest 1V Frontal [CR] Stat Exams 11/19/21 13:22 Taken Femur Min 2V Lt [CR] Routine Exams 11/19/21 Taken CULTURE BLOOD [BC] Stat Lab 11/19/21 13:25 Received CULTURE BLOOD [BC] Stat Lab 11/19/21 13:30 Received Acetaminophen [TylenoL] Med 11/19/21 15:00 Active 650 mg PO Q4H PRN Aspirin [Halfprin] Med 11/20/21 08:00 Active 81 mg PO DAILY Calcium Carbonate/Vitamin D3 [Calcium Carbonate/Vitamin Med 11/20/21 08:00 Active D 1250 MG - 5 MCG] 2 tab PO DAILY Clopidogrel [Plavix] Med 11/19/21 15:00 Active 75 mg PO DAILY NS + KCl 20mEq/L [Normal Saline with 20 mEq KCl] 1,000 Med 11/19/21 15:00 Active ml IV ASDIRECTED Resuscitation Status Routine Resus Stat 11/19/21 13:54 Ordered Medication Orders Acetaminophen (Acetaminophen 325 Mg Tab) 650 mg PO Q4H PRN PRN Reason: Pain (Mild 1-3)/fever Aspirin (Aspirin 81 Mg Tab.Ec) 81 mg PO DAILY [facility] Calcium Carbonate (Calcium Carbonate/Vitamin D3 1250 Mg-5 Mcg Tab) 2 tab PO DAILY [facility] Citalopram Hydrobromide (Citalopram 10 Mg Tab Ptom) 20 mg PO DAILY [facility] Clopidogrel Bisulfate (Clopidogrel 75 Mg Tab Ptom) 75 mg PO DAILY [facility] Potassium Chloride/Sodium Chloride (Normal Saline With 20 Meq Kcl) 1,000 mls @ 100 mls/hr IV ASDIRECTED WANDA Stop: 11/21/21 00:59 Lactobacillus Acidophilus [ Probiotic] 1 Capsule Ptom 0 each PO DAILY [facility] Potassium Chloride 20 Meq Tablet.Er Ptom 0 meq PO DAILY [facility] Non-Formulary Medication (Ropinirole [Requip]) 0.5 mg PO BEDTIME WANDA Rosuvastatin [ Crestor] 10 Mg Tablet Ptom 0 mg PO BEDTIME [facility]AN[facility] Zolpidem 10 Mg (Tablet Ptom) 0 mg PO BEDTIME PRN PRN Reason: Sleep Lisinopril/Hydrochlorothiazide 10-12.5mg Tab Ptom 0 tab PO DAILY [facility] Labs: Laboratory Tests 11/19/21 11/19/21 11/19/21 Range/Units 06:45 06:45 12:59 WBC 5.8 (4.0-11.0) 10^3/uL RBC 4.02 (4.00-5.50) x10^6/uL Hgb 10.8 L (12.0-16.0) g/dL Hct 34.9 L (37.0-47.0) % MCV 86.8 (83.0-97.0) fL MCH 26.9 L (27.0-32.0) pg MCHC 30.9 L (32.0-36.0) g/dL RDW Coeff of Reji 16.0 H (11.0-15.0) % Plt Count 293 (150-400) 10^3/uL Immature Gran % (Auto) 0.2 (0.0-4.9) % Neut % (Auto) 83.0 H (41-71) % Lymph % (Auto) 6.3 L (24-44) % [place] % (Auto) 10.3 H (0-10) % Eos % (Auto) 0.0 (0-6) % Baso % (Auto) 0.2 (0-1) % Neut # (Auto) 4.85 (1.80-8.00) x10^3/uL Lymph # (Auto) 0.37 L (0.60-5.00) 10^3/uL [place] # (Auto) 0.60 (0.00-1.50) 10^3/uL Eos # (Auto) 0.00 (0.00-1.50) 10^3/uL Baso # (Auto) 0.01 (0.00-0.50) 10^3/uL Immature Gran # (Auto) 0.01 (0.00-0.49) 10^3/uL Sodium 138 (136-145) mEq/L Potassium 2.9 L* D (3.5-5.0) mEq/L Chloride 99 (98-106) mEq/L Carbon Dioxide 26 (21-32) mmol/L BUN 16 (7-18) mg/dL Creatinine 0.8 (0.6-1.0) mg/dL Est Cr Clr Drug Dosing 52.49 mL/min Estimated GFR (MDRD) > 60 (>=60) mL/min Glucose 117 H (75-99) mg/dL Calcium 8.6 (8.4-10.1) mg/dL Urine Color Dark yellow (YELLOW) Urine Appearance Clear (CLEAR) Urine pH 5.5 (4.5-8.0) Ur Specific [place] >= 1.030 H (1.003-1.020) Urine Protein 30 H (NEGATIVE) mg/dL Urine Glucose (UA) Negative (NEGATIVE) mg/dL Urine Ketones 15 H (NEGATIVE) mg/dL Urine Occult Blood Trace-intact H (NEGATIVE) Urine Nitrite Negative (NEGATIVE) Urine Bilirubin Small H (NEGATIVE) Urine Urobilinogen 0.2 (0.2-1.0) EU/dL Ur Leukocyte Esterase Negative (NEGATIVE) Urine RBC 0-5 (0-5) /HPF Urine WBC Not seen (0-5) /HPF Ur Epithelial Cells Moderate H (NOT SEEN) /HPF Urine Mucus Few H (NOT SEEN) /HPF Meds: Medications Generic Name Dose Route Start Last Admin Trade Name Freq PRN Reason Stop Dose Admin Acetaminophen 650 mg 11/19/21 15:00 Acetaminophen 325 Mg Tab PO Q4H PRN Pain (Mild 1-3)/fever Aspirin 81 mg 11/20/21 08:00 Aspirin 81 Mg Tab.Ec PO DAILY [facility]ANDA Calcium Carbonate 2 tab 11/20/21 08:00 Calcium Carbonate/Vitamin D3 1250 Mg-5 Mcg Tab PO DAILY [facility] Citalopram Hydrobromide 20 mg 11/19/21 16:45 Citalopram 10 Mg Tab Ptom PO DAILY [facility] Clopidogrel Bisulfate 75 mg 11/19/21 15:00 Clopidogrel 75 Mg Tab Ptom PO DAILY [facility] Potassium Chloride/Sodium Chloride 1,000 mls @ 100 mls/hr 11/19/21 15:00 Normal Saline With 20 Meq Kcl IV 11/21/21 00:59 ASDIRECTED WANDA Lactobacillus 0 each 11/20/21 08:00 Acidophilus [ PO Probiotic] 1 Capsule DAILY WANDA Ptom Potassium Chloride 0 meq 11/19/21 17:30 20 Meq Tablet.Er PO Ptom DAILY [facility]AN[facility] Non-Formulary Medication 0.5 mg 11/19/21 20:00 Ropinirole [Requip] PO BEDTIME WANDA Rosuvastatin [ 0 mg 11/19/21 20:00 Crestor] 10 Mg PO Tablet Ptom BEDTIME WANDA Zolpidem 10 Mg 0 mg 11/19/21 15:16 Tablet Ptom PO BEDTIME PRN Sleep Lisinopril/ 0 tab 11/19/21 16:45 Hydrochlorothiazide PO 10-12.5mg Tab Ptom DAILY [facility]AN[facility] Discontinued Medications Generic Name Dose Route Start Last Admin Trade Name Freq PRN Reason Stop Dose Admin Citalopram Hydrobromide 20 mg 11/19/21 15:00 Citalopram 10 Mg Tab PO DAILY WANDA Citalopram Hydrobromide 20 mg 11/19/21 15:00 Citalopram 10 Mg Tab Ptom PO DAILY [facility] Enoxaparin Sodium 30 mg 11/19/21 15:00 Enoxaparin 30 Mg/0.3 Ml Syringe SUBCUT Q24H WANDA Potassium Chloride 40 meq/ 100 mls @ 25 mls/hr 11/19/21 07:10 11/19/21 07:57 Premix IV 11/19/21 11:09 25 mls/hr ONETIME ONE Administration Sodium Chloride 500 mls @ 25 mls/hr 11/19/21 07:30 11/19/21 07:58 Normal Saline IV 25 mls/hr ASDIRECTED WANDA Administration Non-Formulary Medication 1 each 11/20/21 08:00 Lactobacillus Acidophilus [Probiotic] PO DAILY [facility] Non-Formulary Medication 1 tab 11/19/21 15:00 Lisinopril/Hydrochlorothiazide PO DAILY [facility] Non-Formulary Medication 20 meq 11/19/21 15:00 Potassium Chloride [Potassium Chloride] PO DAILY [facility] Non-Formulary Medication 0.5 mg 11/19/21 20:00 Ropinirole [Requip] PO BEDTIME WANDA Non-Formulary Medication 10 mg 11/20/21 08:00 Rosuvastatin [Crestor] PO DAILY [facility]AN[facility] Non-Formulary Medication 10 mg 11/19/21 15:00 Zolpidem PO BEDTIME PRN Sleep Lisinopril/ 0 tab 11/19/21 15:00 Hydrochlorothiazide PO 10-12.5mg Tab Ptom DAILY [facility]AN[facility] - Re-Assessments/Exams Free Text/Narrative Re-Assessment/Exam: 11/19/21 12:40 Resumed care of this patient. Patient now febrile with temp 101.5. Will get UA as well as blood cultures and CXR and update once results available. adamant that he will not be taking patient home as he is unable to care for her. 11/19/21 13:52 at bedside. Discussed further lab workup. UA is negative. Does appear dehydrated. Will cautiously give some IVF as patient has not been eating or drinking. Is depressed and cries when discussing admission and possible SNF admit. Will admit to observation for further workup and safe discharge planning. Case managment consult for assistance with DC planning. Patient will likely need SNF placement as unable to care for patient. Would like mental health evaluation as well due to severe depression, but unfortunatly our mental health provider is not in office this week. Admit to observation. Departure - Departure Time of Disposition: 13:30 Condition: Fair Sepsis Event Note (ED) - Focused Exam Vital Signs: Vital Signs Temp Pulse Resp BP Pulse Ox 11/19/21 13:36 101.5 F H 87 18 115/56 L 97 11/19/21 09:05 100.4 F 79 20 112/57 L 97 11/19/21 05:29 99.5 F 83 18 134/67 95 - Problem List & Annotations (1) Fever of unknown origin SNOMED Code(s): 6782957 Code(s): R50.9 - FEVER, UNSPECIFIED Status: Acute Current Visit: Yes (2) Depression SNOMED Code(s): 51443474 Code(s): F32.A - DEPRESSION, UNSPECIFIED Status: Acute Current Visit: Yes Qualifiers: Depression Type: major depressive disorder Major depression recurrence: unspecified whether recurrent Active/Remission status: currently active Major depression episode severity: severe Psychotic features: without psychotic features Qualified Code(s): F32.2 - Major depressive disorder, single episode, severe without psychotic features (3) Fall in home SNOMED Code(s): 61741089 Code(s): W19.XXXA - UNSPECIFIED FALL, INITIAL ENCOUNTER; Y92.009 - UNSP PLACE IN UNSP NON-INSTITUT (PRIVATE) RESIDENCE PLACE Status: Acute Priority: High Current Visit: Yes Qualifiers: Encounter type: initial encounter Qualified Code(s): W19.XXXA - Unspecified fall, initial encounter; Y92.009 - Unspecified place in unspecified non- institutional (private) residence as the place of occurrence of the external cause (4) Hypokalemia SNOMED Code(s): 35347295 Code(s): E87.6 - HYPOKALEMIA Status: Acute Priority: High Current Visit: Yes (5) Weakness SNOMED Code(s): 28477182 Code(s): R53.1 - WEAKNESS Status: Acute Current Visit: Yes - My Orders Last 24 Hours: My Active Orders 11/19/21 13:22 Chest 1V Frontal [CR] Stat 11/19/21 13:25 CULTURE BLOOD [BC] Stat 11/19/21 13:30 CULTURE BLOOD [BC] Stat 11/19/21 13:54 Resuscitation Status Routine 11/19/21 15:00 Acetaminophen [TylenoL] 650 mg PO Q4H PRN Clopidogrel [Plavix] 75 mg PO DAILY NS + KCl 20mEq/L [Normal Saline with 20 mEq KCl] 1,000 ml IV ASDIRECTED 11/19/21 15:00 Intake and Output [RC] 0600,1800 Oxygen Therapy [RC] .PRN Pulse Oximetry [RC] .PRN Up With Assistance [RC] .PRN Vital Signs [RC] 0000,0400,0800,1200,1600,2000,0000 11/20/21 08:00 Aspirin [Halfprin] 81 mg PO DAILY Calcium Carbonate/Vitamin D3 [Calcium Carbonate/Vitamin D 1250 MG - 5 MCG] 2 tab PO DAILY - Assessment/Plan Admission H&P: Please use this note as an admission H&P Last 24 Hours: My Active Orders 11/19/21 13:22 Chest 1V Frontal [CR] Stat 11/19/21 13:25 CULTURE BLOOD [BC] Stat 11/19/21 13:30 CULTURE BLOOD [BC] Stat 11/19/21 13:54 Resuscitation Status Routine 11/19/21 15:00 Acetaminophen [TylenoL] 650 mg PO Q4H PRN Clopidogrel [Plavix] 75 mg PO DAILY NS + KCl 20mEq/L [Normal Saline with 20 mEq KCl] 1,000 ml IV ASDIRECTED 11/19/21 15:00 Intake and Output [RC] 0600,1800 Oxygen Therapy [RC] .PRN Pulse Oximetry [RC] .PRN Up With Assistance [RC] .PRN Vital Signs [RC] 0000,0400,0800,1200,1600,2000,0000 11/20/21 08:00 Aspirin [Halfprin] 81 mg PO DAILY Calcium Carbonate/Vitamin D3 [Calcium Carbonate/Vitamin D 1250 MG - 5 MCG] 2 tab PO DAILY Assessment:: Fever of unknown origin Fall in home Hypokalemia Weakness Depression Plan: I resumed care of this patient. During extended ED stay, patient spiked temp of 101.5. UA, blood cultures and CXR obtained. No obvious cause of fever. Patient is weak and more confused than baseline. reports he cannot care for patient at home. Refuses discharge to home. Will admit to observation for further monitoring/workup in regards to fever. Will cautiously give patient IVF with potassium through the night as she is not eating/drinking much. Will hold Tramadol at this time to see if this may be worsening her confusion. Case management consult for assistance with safe discharge planning. Patient admitted to observation.
[2021-11-19 06:53] LABS: CHLORIDE,CL 99 mEq/L (98-106); SODIUM,NA 138 mEq/L (136-145)
[2021-11-19] MEDS ORDERED: Potassium Chloride Riders 40 MEQ in Premix Bag 1 BAG IV ONE (07:10)
[2021-11-19] MEDS ORDERED: Sodium Chloride 0.9% 500 ML IV SCH (07:30)
[2021-11-19] MEDS ORDERED: CITALOPRAM 10 MG PO SCH (15:00)
[2021-11-19] MEDS ORDERED: HYDROCHLOROTHIAZIDE PO SCH (15:00)
[2021-11-19] MEDS ORDERED: Enoxaparin 30 MG/0.3 ML Syringe SUBCUT SCH (15:00)
[2021-11-19] MEDS ORDERED: Non-Formulary Medication 1 Each (Lisinopril/Hydrochlorothiazide 1 TAB Tablet) PO SCH (15:00)
[2021-11-19] MEDS ORDERED: Non-Formulary Medication 1 Each (Zolpidem 10 MG Tablet) PO PRN (15:00)
[2021-11-19] MEDS ORDERED: LISINOPRIL PO SCH (15:00)
[2021-11-19] MEDS ORDERED: Non-Formulary Medication 1 Each (Potassium Chloride [Potassium Chloride] 20 MEQ Tablet.Er) PO SCH (15:00)
[2021-11-19] MEDS ORDERED: Citalopram 10 MG Tab PO SCH (15:00)
[2021-11-19] MEDS ORDERED: ZOLPIDEM 10 MG PO PRN (15:16)
[2021-11-19] MEDS: Acetaminophen 325 MG Tab PO PRN (16:59)
[2021-11-19] MEDS: POTASSIUM CHLORIDE 20 MEQ PO SCH (17:01)
[2021-11-19] MEDS: CITALOPRAM 10 MG PO SCH (17:02)
[2021-11-19] MEDS: HYDROCHLOROTHIAZIDE PO SCH (17:02)
[2021-11-19] MEDS: LISINOPRIL PO SCH (17:02)
[2021-11-19] MEDS: NS + KCl 20mEq/L 1,000 ML IV SCH (19:28)
[2021-11-19] MEDS ORDERED: ROSUVASTATIN 10 MG PO SCH (20:00)
[2021-11-19] MEDS ORDERED: Non-Formulary Medication 1 Each (Ropinirole [Requip] 0.5 MG Tablet) PO SCH (20:00)
[2021-11-20] MEDS: Acetaminophen 325 MG Tab PO PRN ×3 (00:21→19:38)
[2021-11-20] MEDS: NS + KCl 20mEq/L 1,000 ML IV SCH ×2 (04:59→19:35)
[2021-11-20] MEDS: Aspirin 81 MG Tab.EC PO SCH (07:34)
[2021-11-20] MEDS: Calcium Carbonate/Vitamin D3 1250 MG-5 MCG Tab PO SCH (07:35)
[2021-11-20] MEDS: LACTOBACILLUS ACIDOPHILUS PO SCH (07:35)
[2021-11-20] MEDS: POTASSIUM CHLORIDE 20 MEQ PO SCH (07:36)
[2021-11-20] MEDS ORDERED: Non-Formulary Medication 1 Each (Rosuvastatin [Crestor] 10 MG Tablet) PO SCH (08:00)
[2021-11-20] MEDS ORDERED: Non-Formulary Medication 1 Each (Lactobacillus Acidophilus [Probiotic] 1 EACH Capsule) PO SCH (08:00)
[2021-11-20 08:26] LABS: CHLORIDE,CL 101 mEq/L (98-106); SODIUM,NA 136 mEq/L (136-145)
[2021-11-20] MEDS: LISINOPRIL PO SCH (08:32)
[2021-11-20] MEDS: HYDROCHLOROTHIAZIDE PO SCH (08:32)
[2021-11-20] MEDS: CITALOPRAM 10 MG PO SCH (08:32)
[2021-11-20] MEDS ORDERED: Oxyquinoline/Emollient 0.3% Oint 1 OZ Canister TOP PRN (11:32)
--- NOTE | 2021-11-20 11:38 | PCM.PN ---
- General Info Date of Service: 11/20/21 Subjective Update: Rosi is a 71 yo female who was admitted to the hospital yesterday with hypokalemia and fever of unknown origin. Patient has been weak and not tolerating diet the last few days. Patient had multiple bouts of diarrhea through out the evening and last night. She admits it seems to have slowed down this morning but has been really tired today from being up all night. She denies any other complaints at this time. Patient did continue to have a low grade fever this morning. She admits her butt is sore now from all the diarrhea. is present and is concerned with patient being sent home and not ready. They have discussed usp placement as well as he doesn't feel he is able to care for her with her current state. - Review of Systems General: Reports: Fever, Fatigue HEENT: Reports: No Symptoms Pulmonary: Reports: No Symptoms Cardiovascular: Reports: No Symptoms Gastrointestinal: Reports: Decreased Appetite, Diarrhea, Flatus. Denies: Abdominal Pain, Melena Genitourinary: Reports: No Symptoms Musculoskeletal: Reports: No Symptoms Skin: Reports: No Symptoms Neurological: Reports: No Symptoms Psychiatric: Reports: Depression - Patient Data Vitals - Most Recent: Last Vital Signs Temp 100 F 11/20/21 07:43 Pulse 103 H 11/20/21 07:43 Resp 16 11/20/21 07:43 BP 115/63 11/20/21 07:43 Pulse Ox 96 11/20/21 07:43 Weight - Most Recent: 162 lb 14.4 oz I&O - Last 24 Hours: Intake & Output 11/19/21 11/20/21 11/20/21 22:59 06:59 14:59 Intake Total 240 1252 Output Total 0 100 Balance 240 1152 Lab Results Last 24 Hours: Laboratory Results - last 24 hr 11/19/21 11/20/21 11/20/21 Range/Units 12:59 07:00 08:14 WBC (4.0-11.0) 10^3/uL RBC (4.00-5.50) x10^6/uL Hgb (12.0-16.0) g/dL Hct (37.0-47.0) % MCV (83.0-97.0) fL MCH (27.0-32.0) pg MCHC (32.0-36.0) g/dL RDW Coeff of Reji (11.0-15.0) % Plt Count (150-400) 10^3/uL Immature Gran % (Auto) (0.0-4.9) % Neut % (Auto) (41-71) % Lymph % (Auto) (24-44) % [place] % (Auto) (0-10) % Eos % (Auto) (0-6) % Baso % (Auto) (0-1) % Neut # (Auto) (1.80-8.00) x10^3/uL Lymph # (Auto) (0.60-5.00) 10^3/uL [place] # (Auto) (0.00-1.50) 10^3/uL Eos # (Auto) (0.00-1.50) 10^3/uL Baso # (Auto) (0.00-0.50) 10^3/uL Immature Gran # (Auto) (0.00-0.49) 10^3/uL Sodium (136-145) mEq/L Potassium (3.5-5.0) mEq/L Chloride (98-106) mEq/L Carbon Dioxide (21-32) mmol/L BUN (7-18) mg/dL Creatinine (0.6-1.0) mg/dL Est Cr Clr Drug Dosing mL/min Estimated GFR (MDRD) (>=60) mL/min Glucose (75-99) mg/dL Calcium (8.4-10.1) mg/dL Magnesium 1.7 L (1.8-2.4) mg/dL Total Bilirubin (0.0-1.0) mg/dL AST (15-37) U/L ALT (12-78) U/L Alkaline Phosphatase (46-116) U/L Total Protein (6.4-8.2) g/dL Albumin (3.4-5.0) g/dL Urine Color Dark yellow (YELLOW) Urine Appearance Clear (CLEAR) Urine pH 5.5 (4.5-8.0) Ur Specific [place] >= 1.030 H (1.003-1.020) Urine Protein 30 H (NEGATIVE) mg/dL Urine Glucose (UA) Negative (NEGATIVE) mg/dL Urine Ketones 15 H (NEGATIVE) mg/dL Urine Occult Blood Trace-intact H (NEGATIVE) Urine Nitrite Negative (NEGATIVE) Urine Bilirubin Small H (NEGATIVE) Urine Urobilinogen 0.2 (0.2-1.0) EU/dL Ur Leukocyte Esterase Negative (NEGATIVE) Urine RBC 0-5 (0-5) /HPF Urine WBC Not seen (0-5) /HPF Ur Epithelial Cells Moderate H (NOT SEEN) /HPF Urine Mucus Few H (NOT SEEN) /HPF SARS-CoV-2 RNA (ISAAC) Negative (NEGATIVE) 11/20/21 11/20/21 Range/Units 08:14 08:14 WBC 8.1 (4.0-11.0) 10^3/uL RBC 3.68 L (4.00-5.50) x10^6/uL Hgb 9.8 L (12.0-16.0) g/dL Hct 31.4 L (37.0-47.0) % MCV 85.3 (83.0-97.0) fL MCH 26.6 L (27.0-32.0) pg MCHC 31.2 L (32.0-36.0) g/dL RDW Coeff of Reji 15.8 H (11.0-15.0) % Plt Count 230 (150-400) 10^3/uL Immature Gran % (Auto) 0.2 (0.0-4.9) % Neut % (Auto) 86.8 H (41-71) % Lymph % (Auto) 5.3 L (24-44) % [place] % (Auto) 7.3 (0-10) % Eos % (Auto) 0.2 (0-6) % Baso % (Auto) 0.2 (0-1) % Neut # (Auto) 7.03 (1.80-8.00) x10^3/uL Lymph # (Auto) 0.43 L (0.60-5.00) 10^3/uL [place] # (Auto) 0.59 (0.00-1.50) 10^3/uL Eos # (Auto) 0.02 (0.00-1.50) 10^3/uL Baso # (Auto) 0.02 (0.00-0.50) 10^3/uL Immature Gran # (Auto) 0.02 (0.00-0.49) 10^3/uL Sodium 136 (136-145) mEq/L Potassium 3.0 L (3.5-5.0) mEq/L Chloride 101 (98-106) mEq/L Carbon Dioxide 23 (21-32) mmol/L BUN 17 (7-18) mg/dL Creatinine 0.6 (0.6-1.0) mg/dL Est Cr Clr Drug Dosing 69.99 mL/min Estimated GFR (MDRD) > 60 (>=60) mL/min Glucose 112 H (75-99) mg/dL Calcium 7.8 L (8.4-10.1) mg/dL Magnesium (1.8-2.4) mg/dL Total Bilirubin 0.6 (0.0-1.0) mg/dL AST 15 (15-37) U/L ALT 8 L (12-78) U/L Alkaline Phosphatase 158 H (46-116) U/L Total Protein 5.4 L (6.4-8.2) g/dL Albumin 2.1 L (3.4-5.0) g/dL Urine Color (YELLOW) Urine Appearance (CLEAR) Urine pH (4.5-8.0) Ur Specific [place] (1.003-1.020) Urine Protein (NEGATIVE) mg/dL Urine Glucose (UA) (NEGATIVE) mg/dL Urine Ketones (NEGATIVE) mg/dL Urine Occult Blood (NEGATIVE) Urine Nitrite (NEGATIVE) Urine Bilirubin (NEGATIVE) Urine Urobilinogen (0.2-1.0) EU/dL Ur Leukocyte Esterase (NEGATIVE) Urine RBC (0-5) /HPF Urine WBC (0-5) /HPF Ur Epithelial Cells (NOT SEEN) /HPF Urine Mucus (NOT SEEN) /HPF SARS-CoV-2 RNA (ISAAC) (NEGATIVE) Beni Results Last 24 Hours: Microbiology 11/20/21 07:45 C. difficile DNA Amplification - Final Stool / Feces Positive C. Diff Dna Med Orders - Current: Current Medications Acetaminophen (Acetaminophen 325 Mg Tab) 650 mg PO Q4H PRN PRN Reason: Pain (Mild 1-3)/fever Last Admin: 11/20/21 00:21 Dose: 650 mg Documented by: Aspirin (Aspirin 81 Mg Tab.Ec) 81 mg PO DAILY [facility] Last Admin: 11/20/21 07:34 Dose: 81 mg Documented by: Calcium Carbonate (Calcium Carbonate/Vitamin D3 1250 Mg-5 Mcg Tab) 2 tab PO DAILY [facility] Last Admin: 11/20/21 07:35 Dose: 2 tab Documented by: Citalopram Hydrobromide (Citalopram 10 Mg Tab Ptom) 20 mg PO DAILY [facility] Last Admin: 11/20/21 08:32 Dose: 20 mg Documented by: Clopidogrel Bisulfate (Clopidogrel 75 Mg Tab Ptom) 75 mg PO DAILY [facility] Last Admin: 11/20/21 07:36 Dose: 75 mg Documented by: Potassium Chloride/Sodium Chloride (Normal Saline With 20 Meq Kcl) 1,000 mls @ 100 mls/hr IV ASDIRECTED [facility] Stop: 11/21/21 00:59 Last Admin: 11/20/21 04:59 Dose: 100 mls/hr Documented by: Magnesium Sulfate 2 gm/ Premix 50 mls @ 25 mls/hr IV ONETIME ONE Stop: 11/20/21 13:23 Potassium Chloride 40 meq/ (Premix) 100 mls @ 25 mls/hr IV ONETIME ONE Stop: 11/20/21 15:24 Lactobacillus Acidophilus [ Probiotic] 1 Capsule Ptom 0 each PO DAILY [facility] Last Admin: 11/20/21 07:35 Dose: 1 each Documented by: Non-Formulary Medication (Ropinirole [Requip]) 0.5 mg PO BEDTIME [facility] Rosuvastatin [ Crestor] 10 Mg Tablet Ptom 0 mg PO BEDTIME [facility] Last Admin: 11/19/21 20:04 Dose: 10 mg Documented by: Zolpidem 10 Mg (Tablet Ptom) 0 mg PO BEDTIME PRN PRN Reason: Sleep Last Admin: 11/19/21 20:14 Dose: 10 mg Documented by: Lisinopril/Hydrochlorothiazide 10-12.5mg Tab Ptom 0 tab PO DAILY [facility] Last Admin: 11/20/21 08:32 Dose: 1 tab Documented by: Non-Formulary Medication (Potassium Chloride [Potassium Chloride]) 20 meq PO BID [facility] Vancomycin HCl (Vancomycin 125 Mg Cap) 125 mg PO QID [facility] Stop: 11/30/21 12:01 Discontinued Medications Citalopram Hydrobromide (Citalopram 10 Mg Tab) 20 mg PO DAILY [facility] Citalopram Hydrobromide (Citalopram 10 Mg Tab Ptom) 20 mg PO DAILY [facility] Enoxaparin Sodium (Enoxaparin 30 Mg/0.3 Ml Syringe) 30 mg SUBCUT Q24H [facility] Potassium Chloride 40 meq/ (Premix) 100 mls @ 25 mls/hr IV ONETIME ONE Stop: 11/19/21 11:09 Last Admin: 11/19/21 07:57 Dose: 25 mls/hr Documented by: Sodium Chloride (Normal Saline) 500 mls @ 25 mls/hr IV ASDIRECTED [facility] Last Admin: 11/19/21 07:58 Dose: 25 mls/hr Documented by: Non-Formulary Medication (Lactobacillus Acidophilus [Probiotic]) 1 each PO DAILY [facility] Non-Formulary Medication (Lisinopril/Hydrochlorothiazide) 1 tab PO DAILY [facility] Non-Formulary Medication (Potassium Chloride [Potassium Chloride]) 20 meq PO DAILY [facility] Non-Formulary Medication (Ropinirole [Requip]) 0.5 mg PO BEDTIME [facility] Non-Formulary Medication (Rosuvastatin [Crestor]) 10 mg PO DAILY [facility] Non-Formulary Medication (Zolpidem) 10 mg PO BEDTIME PRN PRN Reason: Sleep Lisinopril/Hydrochlorothiazide 10-12.5mg Tab Ptom 0 tab PO DAILY [facility] Potassium Chloride 20 Meq Tablet.Er Ptom 0 meq PO DAILY [facility] Last Admin: 11/20/21 07:36 Dose: 20 meq Documented by: - Exam General: Alert, Oriented, Cooperative, No Acute Distress Lungs: Clear to Auscultation, Normal Respiratory Effort Cardiovascular: Regular Rate, Regular Rhythm GI/Abdominal Exam: Normal Bowel Sounds, Soft, No Organomegaly, No Distention, Tender (mild tenderness through out) Extremities: Normal Inspection, No Pedal Edema Neurological: No New Focal Deficit Psy/Mental Status: Alert, Depressed - Patient Data Lab Results Last 24 hrs: Laboratory Results - last 24 hr 11/19/21 11/20/21 11/20/21 Range/Units 12:59 07:00 08:14 WBC (4.0-11.0) 10^3/uL RBC (4.00-5.50) x10^6/uL Hgb (12.0-16.0) g/dL Hct (37.0-47.0) % MCV (83.0-97.0) fL MCH (27.0-32.0) pg MCHC (32.0-36.0) g/dL RDW Coeff of Reji (11.0-15.0) % Plt Count (150-400) 10^3/uL Immature Gran % (Auto) (0.0-4.9) % Neut % (Auto) (41-71) % Lymph % (Auto) (24-44) % [place] % (Auto) (0-10) % Eos % (Auto) (0-6) % Baso % (Auto) (0-1) % Neut # (Auto) (1.80-8.00) x10^3/uL Lymph # (Auto) (0.60-5.00) 10^3/uL [place] # (Auto) (0.00-1.50) 10^3/uL Eos # (Auto) (0.00-1.50) 10^3/uL Baso # (Auto) (0.00-0.50) 10^3/uL Immature Gran # (Auto) (0.00-0.49) 10^3/uL Sodium (136-145) mEq/L Potassium (3.5-5.0) mEq/L Chloride (98-106) mEq/L Carbon Dioxide (21-32) mmol/L BUN (7-18) mg/dL Creatinine (0.6-1.0) mg/dL Est Cr Clr Drug Dosing mL/min Estimated GFR (MDRD) (>=60) mL/min Glucose (75-99) mg/dL Calcium (8.4-10.1) mg/dL Magnesium 1.7 L (1.8-2.4) mg/dL Total Bilirubin (0.0-1.0) mg/dL AST (15-37) U/L ALT (12-78) U/L Alkaline Phosphatase (46-116) U/L Total Protein (6.4-8.2) g/dL Albumin (3.4-5.0) g/dL Urine Color Dark yellow (YELLOW) Urine Appearance Clear (CLEAR) Urine pH 5.5 (4.5-8.0) Ur Specific [place] >= 1.030 H (1.003-1.020) Urine Protein 30 H (NEGATIVE) mg/dL Urine Glucose (UA) Negative (NEGATIVE) mg/dL Urine Ketones 15 H (NEGATIVE) mg/dL Urine Occult Blood Trace-intact H (NEGATIVE) Urine Nitrite Negative (NEGATIVE) Urine Bilirubin Small H (NEGATIVE) Urine Urobilinogen 0.2 (0.2-1.0) EU/dL Ur Leukocyte Esterase Negative (NEGATIVE) Urine RBC 0-5 (0-5) /HPF Urine WBC Not seen (0-5) /HPF Ur Epithelial Cells Moderate H (NOT SEEN) /HPF Urine Mucus Few H (NOT SEEN) /HPF SARS-CoV-2 RNA (ISAAC) Negative (NEGATIVE) 11/20/21 11/20/21 Range/Units 08:14 08:14 WBC 8.1 (4.0-11.0) 10^3/uL RBC 3.68 L (4.00-5.50) x10^6/uL Hgb 9.8 L (12.0-16.0) g/dL Hct 31.4 L (37.0-47.0) % MCV 85.3 (83.0-97.0) fL MCH 26.6 L (27.0-32.0) pg MCHC 31.2 L (32.0-36.0) g/dL RDW Coeff of Reji 15.8 H (11.0-15.0) % Plt Count 230 (150-400) 10^3/uL Immature Gran % (Auto) 0.2 (0.0-4.9) % Neut % (Auto) 86.8 H (41-71) % Lymph % (Auto) 5.3 L (24-44) % [place] % (Auto) 7.3 (0-10) % Eos % (Auto) 0.2 (0-6) % Baso % (Auto) 0.2 (0-1) % Neut # (Auto) 7.03 (1.80-8.00) x10^3/uL Lymph # (Auto) 0.43 L (0.60-5.00) 10^3/uL [place] # (Auto) 0.59 (0.00-1.50) 10^3/uL Eos # (Auto) 0.02 (0.00-1.50) 10^3/uL Baso # (Auto) 0.02 (0.00-0.50) 10^3/uL Immature Gran # (Auto) 0.02 (0.00-0.49) 10^3/uL Sodium 136 (136-145) mEq/L Potassium 3.0 L (3.5-5.0) mEq/L Chloride 101 (98-106) mEq/L Carbon Dioxide 23 (21-32) mmol/L BUN 17 (7-18) mg/dL Creatinine 0.6 (0.6-1.0) mg/dL Est Cr Clr Drug Dosing 69.99 mL/min Estimated GFR (MDRD) > 60 (>=60) mL/min Glucose 112 H (75-99) mg/dL Calcium 7.8 L (8.4-10.1) mg/dL Magnesium (1.8-2.4) mg/dL Total Bilirubin 0.6 (0.0-1.0) mg/dL AST 15 (15-37) U/L ALT 8 L (12-78) U/L Alkaline Phosphatase 158 H (46-116) U/L Total Protein 5.4 L (6.4-8.2) g/dL Albumin 2.1 L (3.4-5.0) g/dL Urine Color (YELLOW) Urine Appearance (CLEAR) Urine pH (4.5-8.0) Ur Specific [place] (1.003-1.020) Urine Protein (NEGATIVE) mg/dL Urine Glucose (UA) (NEGATIVE) mg/dL Urine Ketones (NEGATIVE) mg/dL Urine Occult Blood (NEGATIVE) Urine Nitrite (NEGATIVE) Urine Bilirubin (NEGATIVE) Urine Urobilinogen (0.2-1.0) EU/dL Ur Leukocyte Esterase (NEGATIVE) Urine RBC (0-5) /HPF Urine WBC (0-5) /HPF Ur Epithelial Cells (NOT SEEN) /HPF Urine Mucus (NOT SEEN) /HPF SARS-CoV-2 RNA (ISAAC) (NEGATIVE) Result Diagrams: 11/20/21 08:14 11/20/21 08:14 Beni Results Last 24 hrs: Microbiology 11/20/21 07:45 C. difficile DNA Amplification - Final Stool / Feces Positive C. Diff Dna Sepsis Event Note - Evaluation Sepsis Screening Result: No Definite Risk - Focused Exam Vital Signs: Vital Signs Temp Temp Pulse Resp BP Pulse Ox 11/20/21 07:43 100 F 103 H 16 115/63 96 11/20/21 03:44 99.1 F 88 18 104/55 L 93 L 11/20/21 01:00 99.2 F 11/20/21 00:51 99.2 F 11/20/21 00:21 99.9 F 11/20/21 00:00 99.9 F 101 H 18 116/56 L 95 - Problem List & Annotations (1) C. difficile diarrhea SNOMED Code(s): 5016735820787 Code(s): A04.72 - ENTEROCOLITIS D/T CLOSTRIDIUM DIFFICILE, NOT SPCF RECUR Status: Acute Current Visit: Yes (2) Hypokalemia SNOMED Code(s): 18842497 Code(s): E87.6 - HYPOKALEMIA Status: Acute Priority: High Current Visit: Yes - Problem List Review Problem List Initiated/Reviewed/Updated: Yes - My Orders Last 24 Hours: My Active Orders 11/20/21 05:25 Isolation [COMM] Stat 11/20/21 07:45 C DIFFICILE TOXIN IMMUNOASSAY [MREF] Stat 11/20/21 11:24 Magnesium Sulfate/Water [Magnesium Sulfate in Water 2 GM/50 ML] 2 gm Premix Bag 1 bag IV ONETIME 11/20/21 11:25 Potassium Chloride Riders [KCL in Water 40 MEQ/100 ML] 40 meq Premix Bag 1 bag IV ONETIME 11/20/21 11:30 Patient Status [ADT] Routine Cardiac Monitoring [RC] . DIRECTED 11/20/21 11:32 Oxyquinoline/Emollient [Bag [place] Oint] See Dose Instructions TOP ASDIRECTED PRN 11/20/21 12:00 Vancomycin [Vancocin 125 MG Capsule] 250 mg PO QID 11/20/21 20:00 Potassium Chloride [Potassium Chloride] 20 meq PO BID 11/21/21 05:11 BASIC METABOLIC PANEL,BMP [CHEM] AM CBC WITH AUTO DIFF [HEME] AM MAGNESIUM [CHEM] AM 11/22/21 05:11 BASIC METABOLIC PANEL,BMP [CHEM] AM CBC WITH AUTO DIFF [HEME] AM MAGNESIUM [CHEM] AM - Plan Plan:: Patient did test positive for C. Diff, which we will initiate oral Vancomycin today. Potassium continues to be low at 3.0 today and will give 40mEq bump via IV. Magnesium ordered and was slightly low at 1.7, 2grams to be given IV today as well. Will start Telemetry with low potassium. Discussed findings with Rosi and her and patient transferred to acute care at this time. Will get physical therapy to work with patient likely starting tomorrow. Encouraged Rosi to increase activity and oral intake as well. Patient verbalized understanding and will closely monitor patient at this time.
[2021-11-20] MEDS: Vancomycin 125 MG Cap PO SCH ×3 (11:47→19:37)
[2021-11-20] MEDS ORDERED: Magnesium Sulfate/Water 2 GM in Premix Bag 1 BAG IV ONE (12:00)
[2021-11-20] MEDS ORDERED: Sodium Chloride 0.9% 1,000 ML IV ONE (13:51)
[2021-11-20] MEDS ORDERED: Potassium Chloride Riders 40 MEQ in Premix Bag 1 BAG IV ONE (14:00)
[2021-11-20] MEDS ORDERED: Enoxaparin 30 MG/0.3 ML Syringe SUBCUT SCH (15:00)
[2021-11-20] MEDS: rOPINIRole 1 MG Tab PO SCH (19:36)
[2021-11-20] MEDS: Simvastatin 40 MG Tab PO SCH (19:37)
[2021-11-20] MEDS: Zolpidem 5 MG Tab PO PRN (19:38)
[2021-11-20] MEDS ORDERED: Potassium Chloride 10 MEQ Tab.ER PO SCH (20:00)
[2021-11-21] MEDS: Acetaminophen 325 MG Tab PO PRN ×4 (06:37→21:57)
[2021-11-21] MEDS: Potassium Chloride 10 MEQ Tab.ER PO SCH ×2 (07:54→16:55)
[2021-11-21] MEDS: Citalopram 10 MG Tab PO SCH (07:54)
[2021-11-21] MEDS: Aspirin 81 MG Tab.EC PO SCH (07:54)
[2021-11-21] MEDS: Vancomycin 125 MG Cap PO SCH ×4 (07:54→19:50)
[2021-11-21] MEDS: Calcium Carbonate/Vitamin D3 1250 MG-5 MCG Tab PO SCH (07:54)
[2021-11-21] MEDS: Clopidogrel 75 MG Tab PO SCH (07:54)
[2021-11-21] MEDS: Hydrochlorothiazide 12.5 MG Cap PO SCH (07:56)
[2021-11-21] MEDS: LACTOBACILLUS ACIDOPHILUS PO SCH (07:58)
[2021-11-21] MEDS ORDERED: Lisinopril 10 MG Tab PO SCH (08:00)
[2021-11-21 08:09] LABS: SODIUM,NA 138 mEq/L (136-145)
[2021-11-21 09:57] LABS: CHLORIDE,CL 105 mEq/L (98-106)
--- NOTE | 2021-11-21 11:17 | PCM.PN ---
- General Info Date of Service: 11/21/21 Admission Dx/Problem (Free Text): Weakness C Diff Subjective Update: Rosi is a 71 yo female who was admitted to the hospital 11/19/2021 with weakness and fever. Had been having diarrhea for the past week. C diff upon admission as positive. She was started on oral vanco. Patient and nurse report stools are decreasing. Does continue to have cramping with stools but denies any abdominal pain. She has been afebrile the past 24 hours. Has been getting up with assistance. She reports pain is well controlled. She has continued to have a very poor appetite. Is severely depressed. Cries when discussing plan of care. Has very flat affect. relays that since her son , 2 years ago in December, she has struggled but has never seen anyone for this. The recent imaging, which revealed adnexal mass, has really caused patient to feel down as she is worried. She also recently fell and fractured her hip. She is scheduled to see [facility] on Thursday. They have requested a pelvic US, which will be done this morning. Functional Status: Reports: Pain Controlled - Review of Systems General: Reports: Weakness, Fatigue. Denies: Fever, Appetite HEENT: Reports: No Symptoms Pulmonary: Reports: No Symptoms. Denies: Shortness of Breath Cardiovascular: Reports: No Symptoms Gastrointestinal: Reports: Decreased Appetite, Diarrhea, Nausea. Denies: Abdominal Pain, Hematochezia, Melena, Vomiting Genitourinary: Reports: No Symptoms Neurological: Reports: No Symptoms Psychiatric: Reports: Depression. Denies: Suicidal Ideation, Homicidal Ideation - Patient Data Vitals - Most Recent: Last Vital Signs Temp 97.9 F 11/21/21 08:00 Pulse 70 11/21/21 08:00 Resp 16 11/21/21 08:00 BP 124/51 L 11/21/21 08:00 Pulse Ox 94 L 11/21/21 08:00 Weight - Most Recent: 162 lb 14.4 oz I&O - Last 24 Hours: Intake & Output 11/20/21 11/21/21 11/21/21 22:59 06:59 14:59 Intake Total 650 250 Output Total 825 225 Balance -175 25 Lab Results Last 24 Hours: Laboratory Results - last 24 hr 12/30/21 12/30/21 Range/Units 05:11 07:49 WBC 8.0 (4.0-11.0) 10^3/uL RBC 3.29 L (4.00-5.50) x10^6/uL Hgb 8.8 L (12.0-16.0) g/dL Hct 28.2 L (37.0-47.0) % MCV 85.7 (83.0-97.0) fL MCH 26.7 L (27.0-32.0) pg MCHC 31.2 L (32.0-36.0) g/dL RDW Coeff of Reji 16.1 H (11.0-15.0) % Plt Count 205 (150-400) 10^3/uL Immature Gran % (Auto) 0.4 (0.0-4.9) % Neut % (Auto) 82.7 H (41-71) % Lymph % (Auto) 7.3 L (24-44) % Stark % (Auto) 8.3 (0-10) % Eos % (Auto) 1.2 (0-6) % Baso % (Auto) 0.1 (0-1) % Neut # (Auto) 6.63 (1.80-8.00) x10^3/uL Lymph # (Auto) 0.59 L (0.60-5.00) 10^3/uL Stark # (Auto) 0.67 (0.00-1.50) 10^3/uL Eos # (Auto) 0.10 (0.00-1.50) 10^3/uL Baso # (Auto) 0.01 (0.00-0.50) 10^3/uL Immature Gran # (Auto) 0.03 (0.00-0.49) 10^3/uL Sodium 138 (136-145) mEq/L Potassium 3.7 D (3.5-5.0) mEq/L Chloride 105 (98-106) mEq/L Carbon Dioxide 23 (21-32) mmol/L BUN 15 (7-18) mg/dL Creatinine 0.4 L (0.6-1.0) mg/dL Est Cr Clr Drug Dosing 104.98 mL/min Estimated GFR (MDRD) > 60 (>=60) mL/min Glucose 86 (75-99) mg/dL Calcium 7.7 L (8.4-10.1) mg/dL Magnesium 2.0 (1.8-2.4) mg/dL Beni Results Last 24 Hours: Microbiology 11/20/21 07:45 Clostridioides difficile Toxin Assay - Final Stool / Feces 11/19/21 13:30 Aerobic Blood Culture - Preliminary Blood - Venous - Lab Draw NO GROWTH AFTER 1 DAY Anaerobic Blood Culture - Preliminary NO GROWTH AFTER 1 DAY 11/19/21 13:25 Aerobic Blood Culture - Preliminary Blood - Venous NO GROWTH AFTER 1 DAY Anaerobic Blood Culture - Preliminary NO GROWTH AFTER 1 DAY 11/20/21 07:45 C. difficile DNA Amplification - Final Stool / Feces Positive C. Diff Dna Med Orders - Current: Current Medications Acetaminophen (Acetaminophen 325 Mg Tab) 650 mg PO Q4H PRN PRN Reason: Pain (Mild 1-3)/fever Last Admin: 11/21/21 06:37 Dose: 650 mg Documented by: Aspirin (Aspirin 81 Mg Tab.Ec) 81 mg PO DAILY [facility] Last Admin: 11/21/21 07:54 Dose: 81 mg Documented by: Calcium Carbonate (Calcium Carbonate/Vitamin D3 1250 Mg-5 Mcg Tab) 2 tab PO DAILY [facility] Last Admin: 11/21/21 07:54 Dose: 2 tab Documented by: Citalopram Hydrobromide (Citalopram 10 Mg Tab) 20 mg PO DAILY [facility] Last Admin: 11/21/21 07:54 Dose: 20 mg Documented by: Clopidogrel Bisulfate (Clopidogrel 75 Mg Tab) 75 mg PO DAILY [facility] Last Admin: 11/21/21 07:54 Dose: 75 mg Documented by: Hydrochlorothiazide (Hydrochlorothiazide 12.5 Mg Cap) 12.5 mg PO DAILY [facility] Last Admin: 11/21/21 07:56 Dose: 12.5 mg Documented by: Lactobacillus Acidophilus [ Probiotic] 1 Capsule Ptom 0 each PO DAILY [facility] Last Admin: 11/21/21 07:58 Dose: 1 each Documented by: Oxyquinoline Sulfate (Oxyquinoline/Emollient 0.3% Oint 1 Oz Canister) 0 oz TOP ASDIRECTED PRN PRN Reason: Rash Last Admin: 11/20/21 11:54 Dose: 1 applic Documented by: Potassium Chloride (Potassium Chloride 10 Meq Tab.Er) 20 meq PO BID@0800,1730 [facility] Last Admin: 11/21/21 07:54 Dose: 20 meq Documented by: Ropinirole HCl (Ropinirole 1 Mg Tab) 0.5 mg PO BEDTIME [facility] Last Admin: 11/20/21 19:36 Dose: 0.5 mg Documented by: Simvastatin (Simvastatin 40 Mg Tab) 40 mg PO BEDTIME [facility] Last Admin: 11/20/21 19:37 Dose: 40 mg Documented by: Vancomycin HCl (Vancomycin 125 Mg Cap) 125 mg PO QID [facility] Stop: 11/30/21 12:01 Last Admin: 11/21/21 07:54 Dose: 125 mg Documented by: Zolpidem Tartrate (Zolpidem 5 Mg Tab) 10 mg PO BEDTIME PRN PRN Reason: Sleep Last Admin: 11/20/21 19:38 Dose: 10 mg Documented by: Discontinued Medications Citalopram Hydrobromide (Citalopram 10 Mg Tab) 20 mg PO DAILY [facility] Citalopram Hydrobromide (Citalopram 10 Mg Tab Ptom) 20 mg PO DAILY [facility] Citalopram Hydrobromide (Citalopram 10 Mg Tab Ptom) 20 mg PO DAILY [facility] Last Admin: 11/20/21 08:32 Dose: 20 mg Documented by: Clopidogrel Bisulfate (Clopidogrel 75 Mg Tab Ptom) 75 mg PO DAILY [facility] Last Admin: 11/20/21 07:36 Dose: 75 mg Documented by: Enoxaparin Sodium (Enoxaparin 30 Mg/0.3 Ml Syringe) 30 mg SUBCUT Q24H [facility] Potassium Chloride 40 meq/ (Premix) 100 mls @ 25 mls/hr IV ONETIME ONE Stop: 11/19/21 11:09 Last Admin: 11/19/21 07:57 Dose: 25 mls/hr Documented by: Sodium Chloride (Normal Saline) 500 mls @ 25 mls/hr IV ASDIRECTED [facility] Last Admin: 11/19/21 07:58 Dose: 25 mls/hr Documented by: Potassium Chloride/Sodium Chloride (Normal Saline With 20 Meq Kcl) 1,000 mls @ 100 mls/hr IV ASDIRECTED [facility] Stop: 11/21/21 00:59 Last Admin: 11/20/21 19:35 Dose: 100 mls/hr Documented by: Magnesium Sulfate 2 gm/ Premix 50 mls @ 25 mls/hr IV ONETIME ONE Stop: 11/20/21 13:59 Last Admin: 11/20/21 11:45 Dose: 25 mls/hr Documented by: Potassium Chloride 40 meq/ (Premix) 100 mls @ 25 mls/hr IV ONETIME ONE Stop: 11/20/21 17:59 Last Admin: 11/20/21 13:52 Dose: 25 mls/hr Documented by: Sodium Chloride (Normal Saline) 1,000 mls @ 250 mls/hr IV ONETIME ONE Stop: 11/20/21 17:50 Last Admin: 11/20/21 13:56 Dose: 250 mls/hr Documented by: Lisinopril (Lisinopril 10 Mg Tab) 10 mg PO DAILY [facility] Non-Formulary Medication (Lactobacillus Acidophilus [Probiotic]) 1 each PO DAILY [facility] Non-Formulary Medication (Lisinopril/Hydrochlorothiazide) 1 tab PO DAILY [facility] Non-Formulary Medication (Potassium Chloride [Potassium Chloride]) 20 meq PO DAILY [facility] Non-Formulary Medication (Ropinirole [Requip]) 0.5 mg PO BEDTIME [facility] Non-Formulary Medication (Rosuvastatin [Crestor]) 10 mg PO DAILY [facility] Non-Formulary Medication (Zolpidem) 10 mg PO BEDTIME PRN PRN Reason: Sleep Lisinopril/Hydrochlorothiazide 10-12.5mg Tab Ptom 0 tab PO DAILY [facility] Potassium Chloride 20 Meq Tablet.Er Ptom 0 meq PO DAILY [facility] Last Admin: 11/20/21 07:36 Dose: 20 meq Documented by: Rosuvastatin [ Crestor] 10 Mg Tablet Ptom 0 mg PO BEDTIME [facility] Last Admin: 11/19/21 20:04 Dose: 10 mg Documented by: Zolpidem 10 Mg (Tablet Ptom) 0 mg PO BEDTIME PRN PRN Reason: Sleep Last Admin: 11/19/21 20:14 Dose: 10 mg Documented by: Lisinopril/Hydrochlorothiazide 10-12.5mg Tab Ptom 0 tab PO DAILY [facility] Last Admin: 11/20/21 08:32 Dose: 1 tab Documented by: Potassium Chloride (Potassium Chloride 10 Meq Tab.Er) 20 meq PO BID [facility] Last Admin: 11/20/21 19:36 Dose: 20 meq Documented by: - Exam Quality Assessment: DVT Prophylaxis (aspirin per ortho surgery ) General: Alert, Oriented, No Acute Distress Neck: Supple Lungs: Clear to Auscultation, Normal Respiratory Effort Cardiovascular: Regular Rate, Regular Rhythm GI/Abdominal Exam: Normal Bowel Sounds, Soft, Non-Tender, No Organomegaly, No Distention, No Abnormal Bruit, No Mass, Pelvis Stable Back Exam: Normal Inspection, Full Range of Motion Extremities: Normal Inspection, Normal Range of Motion, Non-Tender, No Pedal Edema, Normal Capillary Refill Neurological: No New Focal Deficit Psy/Mental Status: Alert, Depressed - Patient Data Lab Results Last 24 hrs: Laboratory Results - last 24 hr 11/21/21 11/21/21 Range/Units 05:11 07:49 WBC 8.0 (4.0-11.0) 10^3/uL RBC 3.29 L (4.00-5.50) x10^6/uL Hgb 8.8 L (12.0-16.0) g/dL Hct 28.2 L (37.0-47.0) % MCV 85.7 (83.0-97.0) fL MCH 26.7 L (27.0-32.0) pg MCHC 31.2 L (32.0-36.0) g/dL RDW Coeff of Reji 16.1 H (11.0-15.0) % Plt Count 205 (150-400) 10^3/uL Immature Gran % (Auto) 0.4 (0.0-4.9) % Neut % (Auto) 82.7 H (41-71) % Lymph % (Auto) 7.3 L (24-44) % Stark % (Auto) 8.3 (0-10) % Eos % (Auto) 1.2 (0-6) % Baso % (Auto) 0.1 (0-1) % Neut # (Auto) 6.63 (1.80-8.00) x10^3/uL Lymph # (Auto) 0.59 L (0.60-5.00) 10^3/uL Stark # (Auto) 0.67 (0.00-1.50) 10^3/uL Eos # (Auto) 0.10 (0.00-1.50) 10^3/uL Baso # (Auto) 0.01 (0.00-0.50) 10^3/uL Immature Gran # (Auto) 0.03 (0.00-0.49) 10^3/uL Sodium 138 (136-145) mEq/L Potassium 3.7 D (3.5-5.0) mEq/L Chloride 105 (98-106) mEq/L Carbon Dioxide 23 (21-32) mmol/L BUN 15 (7-18) mg/dL Creatinine 0.4 L (0.6-1.0) mg/dL Est Cr Clr Drug Dosing 104.98 mL/min Estimated GFR (MDRD) > 60 (>=60) mL/min Glucose 86 (75-99) mg/dL Calcium 7.7 L (8.4-10.1) mg/dL Magnesium 2.0 (1.8-2.4) mg/dL Result Diagrams: 11/21/21 07:49 11/21/21 05:11 Beni Results Last 24 hrs: Microbiology 11/20/21 07:45 Clostridioides difficile Toxin Assay - Final Stool / Feces 11/19/21 13:30 Aerobic Blood Culture - Preliminary Blood - Venous - Lab Draw NO GROWTH AFTER 1 DAY Anaerobic Blood Culture - Preliminary NO GROWTH AFTER 1 DAY 11/19/21 13:25 Aerobic Blood Culture - Preliminary Blood - Venous NO GROWTH AFTER 1 DAY Anaerobic Blood Culture - Preliminary NO GROWTH AFTER 1 DAY 11/20/21 07:45 C. difficile DNA Amplification - Final Stool / Feces Positive C. Diff Dna Sepsis Event Note - Evaluation Sepsis Screening Result: No Definite Risk - Focused Exam Vital Signs: Vital Signs Temp Pulse Resp BP Pulse Ox 11/21/21 08:00 97.9 F 70 16 124/51 L 94 L 11/21/21 04:00 97.9 F 64 18 116/52 L 93 L 11/21/21 00:00 97.9 F 68 18 102/48 L 94 L - Problem List & Annotations (1) C. difficile diarrhea SNOMED Code(s): 1887994086456 Code(s): A04.72 - ENTEROCOLITIS D/T CLOSTRIDIUM DIFFICILE, NOT SPCF RECUR Status: Acute Current Visit: Yes (2) Depression SNOMED Code(s): 92038982 Code(s): F32.A - DEPRESSION, UNSPECIFIED Status: Chronic Current Visit: Yes Qualifiers: Depression Type: major depressive disorder Major depression recurrence: unspecified whether recurrent Active/Remission status: currently active Major depression episode severity: severe Psychotic features: without psychotic features Qualified Code(s): F32.2 - Major depressive disorder, single episode, severe without psychotic features (3) Hypokalemia SNOMED Code(s): 10981429 Code(s): E87.6 - HYPOKALEMIA Status: Acute Priority: High Current Visit: Yes (4) Weakness SNOMED Code(s): 79987406 Code(s): R53.1 - WEAKNESS Status: Acute Current Visit: Yes (5) Adnexal mass SNOMED Code(s): 479374105 Code(s): N94.89 - OTH COND ASSOC W FEMALE GENITAL ORGANS AND MENSTRUAL CYCLE Status: Acute Current Visit: No - Problem List Review Problem List Initiated/Reviewed/Updated: Yes - My Orders Last 24 Hours: My Active Orders 11/20/21 11:49 Zolpidem [Ambien] 10 mg PO BEDTIME PRN 11/20/21 Lunch Regular Diet [DIET] 11/20/21 20:00 Simvastatin [Zocor] 40 mg PO BEDTIME rOPINIRole [Requip] 0.5 mg PO BEDTIME 11/21/21 08:00 Citalopram [Celexa] 20 mg PO DAILY Clopidogrel [Plavix] 75 mg PO DAILY hydroCHLOROthiazide 12.5 mg PO DAILY 11/21/21 11:16 Consult to Behavioral Health [Behavioral Health Evaluation] [CONS] Routine - Assessment Assessment:: C Diff Hypokalemia Weakness Depression Adnexal Mass - Plan Plan:: Patient did test positive for C. Diff, which we will initiate oral Vancomycin today. Potassium continues to be low at 3.0 today and will give 40mEq bump via IV. Magnesium ordered and was slightly low at 1.7, 2grams to be given IV today as well. Will start Telemetry with low potassium. Discussed findings with Rosi and her and patient transferred to acute care at this time. Will get physical therapy to work with patient likely starting tomorrow. Encouraged Rosi to increase activity and oral intake as well. Patient verbalized understanding and will closely monitor patient at this time. 11/21/2021 Labs all improved today. K improved to 3.7. Continue with oral KCL supplement. Magnesium 2.0. Hgb did drop to 8.8, likely dilutional. Will monitor daily labs. IVF d/c'd. Continue to push fluids/oral intake. Patient wishes to have telemetry off. Will d/c. Continue with oral vanco for cdiff. Stools are lessening. She is very depressed. Will consult mental health provider to see her when she is back from vacation. Continue with PT for strengthening. Will have pelvic US today for adnexal mass. Has [facility] apt scheduled for Thursday.
[2021-11-21] MEDS: rOPINIRole 1 MG Tab PO SCH (19:49)
[2021-11-21] MEDS: Zolpidem 5 MG Tab PO PRN (19:50)
[2021-11-21] MEDS: Simvastatin 40 MG Tab PO SCH (19:50)
[2021-11-22 07:09] LABS: CHLORIDE,CL 101 mEq/L (98-106); SODIUM,NA 134 mEq/L (136-145)
[2021-11-22] MEDS: Calcium Carbonate/Vitamin D3 1250 MG-5 MCG Tab PO SCH (08:27)
[2021-11-22] MEDS: Vancomycin 125 MG Cap PO SCH ×4 (08:27→19:25)
[2021-11-22] MEDS: Potassium Chloride 10 MEQ Tab.ER PO SCH ×2 (08:27→16:32)
[2021-11-22] MEDS: Aspirin 81 MG Tab.EC PO SCH (08:28)
[2021-11-22] MEDS: Hydrochlorothiazide 12.5 MG Cap PO SCH (08:28)
[2021-11-22] MEDS: Citalopram 10 MG Tab PO SCH (08:28)
[2021-11-22] MEDS: Acetaminophen 325 MG Tab PO PRN ×2 (08:28→16:29)
[2021-11-22] MEDS: Clopidogrel 75 MG Tab PO SCH (08:29)
[2021-11-22] MEDS: LACTOBACILLUS ACIDOPHILUS PO SCH (08:29)
--- NOTE | 2021-11-22 13:23 | PCM.PN ---
- General Info Date of Service: 11/22/21 Admission Dx/Problem (Free Text): Weakness C Diff Depression Subjective Update: Rosi is a 71 yo female who was admitted to the hospital 11/19/2021 with weakness and fever. Had been having diarrhea for the past week. C diff upon admission as positive. She was started on oral vanco. Patient and nurse report stools are decreasing. Does continue to have cramping with stools but denies any abdominal pain. She has been afebrile. Is up ambulating in the halls with encouragement. She reports left hip seems to be causing her more pain. Is not well controlled with Tylenol. We had been holding the Tramadol due to confusion. She has continued to have a very poor appetite. Is severely depressed. Cries when discussing plan of care. Has very flat affect. relays that since her son , 2 years ago in December, she has struggled but has never seen anyone for this. The recent imaging, which revealed adnexal mass, has really caused patient to feel down as she is worried it is cancer. Did have US yesterday. She also recently fell and fractured her hip. She is scheduled to see ANESTHESIOLOGY TEACHER on Thursday. Functional Status: Reports: Pain Controlled, Tolerating Diet, Ambulating, Urinating. Denies: New Symptoms - Review of Systems General: Reports: Weakness, Fatigue. Denies: Fever, Malaise, Chills Pulmonary: Reports: No Symptoms Cardiovascular: Reports: No Symptoms Gastrointestinal: Reports: Decreased Appetite, Diarrhea. Denies: Abdominal Pain, Hematochezia, Melena, Nausea, Vomiting Genitourinary: Reports: No Symptoms Musculoskeletal: Reports: Joint Pain (left hip) Neurological: Reports: No Symptoms Psychiatric: Reports: Depression - Patient Data Vitals - Most Recent: Last Vital Signs Temp 99.5 F 11/22/21 08:00 Pulse 67 11/22/21 08:00 Resp 16 11/22/21 08:00 BP 138/63 11/22/21 08:00 Pulse Ox 97 11/22/21 08:00 Weight - Most Recent: 162 lb 14.4 oz I&O - Last 24 Hours: Intake & Output 11/21/21 11/22/21 11/22/21 22:59 06:59 14:59 Intake Total 2000 250 Output Total 700 400 Balance 1300 -150 Lab Results Last 24 Hours: Laboratory Results - last 24 hr 11/22/21 11/22/21 Range/Units 06:55 06:55 WBC 7.3 (4.0-11.0) 10^3/uL RBC 3.63 L (4.00-5.50) x10^6/uL Hgb 9.4 L (12.0-16.0) g/dL Hct 30.5 L (37.0-47.0) % MCV 84.0 (83.0-97.0) fL MCH 25.9 L (27.0-32.0) pg MCHC 30.8 L (32.0-36.0) g/dL RDW Coeff of Reji 16.0 H (11.0-15.0) % Plt Count 218 (150-400) 10^3/uL Immature Gran % (Auto) 2.2 (0.0-4.9) % Neut % (Auto) 73.0 H (41-71) % Lymph % (Auto) 13.6 L (24-44) % [place] % (Auto) 8.5 (0-10) % Eos % (Auto) 2.6 (0-6) % Baso % (Auto) 0.1 (0-1) % Neut # (Auto) 5.32 (1.80-8.00) x10^3/uL Lymph # (Auto) 0.99 (0.60-5.00) 10^3/uL [place] # (Auto) 0.62 (0.00-1.50) 10^3/uL Eos # (Auto) 0.19 (0.00-1.50) 10^3/uL Baso # (Auto) 0.01 (0.00-0.50) 10^3/uL Immature Gran # (Auto) 0.16 (0.00-0.49) 10^3/uL Sodium 134 L (136-145) mEq/L Potassium 3.6 (3.5-5.0) mEq/L Chloride 101 (98-106) mEq/L Carbon Dioxide 24 (21-32) mmol/L BUN 10 (7-18) mg/dL Creatinine 0.6 (0.6-1.0) mg/dL Est Cr Clr Drug Dosing 69.99 mL/min Estimated GFR (MDRD) > 60 (>=60) mL/min Glucose 82 (75-99) mg/dL Calcium 8.0 L (8.4-10.1) mg/dL Magnesium 1.9 (1.8-2.4) mg/dL Beni Results Last 24 Hours: Microbiology 11/19/21 13:30 Aerobic Blood Culture - Preliminary Blood - Venous - Lab Draw NO GROWTH AFTER 2 DAYS Anaerobic Blood Culture - Preliminary NO GROWTH AFTER 2 DAYS 11/19/21 13:25 Aerobic Blood Culture - Preliminary Blood - Venous NO GROWTH AFTER 2 DAYS Anaerobic Blood Culture - Preliminary NO GROWTH AFTER 2 DAYS 11/20/21 07:45 Clostridioides difficile Toxin Assay - Final Stool / Feces Med Orders - Current: Current Medications Acetaminophen (Acetaminophen 325 Mg Tab) 650 mg PO Q4H PRN PRN Reason: Pain (Mild 1-3)/fever Last Admin: 11/22/21 08:28 Dose: 650 mg Documented by: Hydrocodone Bitart/Acetaminophen (Acetaminophen/Hydrocodone 325-5 Mg Tab) 1 tab PO Q6H PRN PRN Reason: Pain (moderate 4-6) Aspirin (Aspirin 81 Mg Tab.Ec) 81 mg PO DAILY [facility] Last Admin: 11/22/21 08:28 Dose: 81 mg Documented by: Calcium Carbonate (Calcium Carbonate/Vitamin D3 1250 Mg-5 Mcg Tab) 2 tab PO DAILY [facility] Last Admin: 11/22/21 08:27 Dose: 2 tab Documented by: Citalopram Hydrobromide (Citalopram 10 Mg Tab) 20 mg PO DAILY [facility] Last Admin: 11/22/21 08:28 Dose: 20 mg Documented by: Clopidogrel Bisulfate (Clopidogrel 75 Mg Tab) 75 mg PO DAILY [facility] Last Admin: 11/22/21 08:29 Dose: 75 mg Documented by: Hydrochlorothiazide (Hydrochlorothiazide 12.5 Mg Cap) 12.5 mg PO DAILY [facility] Last Admin: 11/22/21 08:28 Dose: 12.5 mg Documented by: Lactobacillus Acidophilus [ Probiotic] 1 Capsule Ptom 0 each PO DAILY [facility] Last Admin: 11/22/21 08:29 Dose: 1 each Documented by: Oxyquinoline Sulfate (Oxyquinoline/Emollient 0.3% Oint 1 Oz Canister) 0 oz TOP ASDIRECTED PRN PRN Reason: Rash Last Admin: 11/20/21 11:54 Dose: 1 applic Documented by: Potassium Chloride (Potassium Chloride 10 Meq Tab.Er) 20 meq PO BID@0800,1730 [facility] Last Admin: 11/22/21 08:27 Dose: 20 meq Documented by: Ropinirole HCl (Ropinirole 1 Mg Tab) 0.5 mg PO BEDTIME [facility] Last Admin: 11/21/21 19:49 Dose: 0.5 mg Documented by: Simvastatin (Simvastatin 40 Mg Tab) 40 mg PO BEDTIME [facility] Last Admin: 11/21/21 19:50 Dose: 40 mg Documented by: Vancomycin HCl (Vancomycin 125 Mg Cap) 125 mg PO QID [facility] Stop: 11/30/21 12:01 Last Admin: 11/22/21 11:58 Dose: 125 mg Documented by: Zolpidem Tartrate (Zolpidem 5 Mg Tab) 10 mg PO BEDTIME PRN PRN Reason: Sleep Last Admin: 11/21/21 19:50 Dose: 10 mg Documented by: Discontinued Medications Citalopram Hydrobromide (Citalopram 10 Mg Tab) 20 mg PO DAILY [facility] Citalopram Hydrobromide (Citalopram 10 Mg Tab Ptom) 20 mg PO DAILY [facility] Citalopram Hydrobromide (Citalopram 10 Mg Tab Ptom) 20 mg PO DAILY [facility] Last Admin: 11/20/21 08:32 Dose: 20 mg Documented by: Clopidogrel Bisulfate (Clopidogrel 75 Mg Tab Ptom) 75 mg PO DAILY [facility] Last Admin: 11/20/21 07:36 Dose: 75 mg Documented by: Enoxaparin Sodium (Enoxaparin 30 Mg/0.3 Ml Syringe) 30 mg SUBCUT Q24H [facility] Potassium Chloride 40 meq/ (Premix) 100 mls @ 25 mls/hr IV ONETIME ONE Stop: 11/19/21 11:09 Last Admin: 11/19/21 07:57 Dose: 25 mls/hr Documented by: Sodium Chloride (Normal Saline) 500 mls @ 25 mls/hr IV ASDIRECTED [facility] Last Admin: 11/19/21 07:58 Dose: 25 mls/hr Documented by: Potassium Chloride/Sodium Chloride (Normal Saline With 20 Meq Kcl) 1,000 mls @ 100 mls/hr IV ASDIRECTED [facility] Stop: 11/21/21 00:59 Last Admin: 11/20/21 19:35 Dose: 100 mls/hr Documented by: Magnesium Sulfate 2 gm/ Premix 50 mls @ 25 mls/hr IV ONETIME ONE Stop: 11/20/21 13:59 Last Admin: 11/20/21 11:45 Dose: 25 mls/hr Documented by: Potassium Chloride 40 meq/ (Premix) 100 mls @ 25 mls/hr IV ONETIME ONE Stop: 11/20/21 17:59 Last Admin: 11/20/21 13:52 Dose: 25 mls/hr Documented by: Sodium Chloride (Normal Saline) 1,000 mls @ 250 mls/hr IV ONETIME ONE Stop: 11/20/21 17:50 Last Admin: 11/20/21 13:56 Dose: 250 mls/hr Documented by: Lisinopril (Lisinopril 10 Mg Tab) 10 mg PO DAILY [facility] Non-Formulary Medication (Lactobacillus Acidophilus [Probiotic]) 1 each PO DAILY [facility] Non-Formulary Medication (Lisinopril/Hydrochlorothiazide) 1 tab PO DAILY [facility] Non-Formulary Medication (Potassium Chloride [Potassium Chloride]) 20 meq PO DAILY [facility] Non-Formulary Medication (Ropinirole [Requip]) 0.5 mg PO BEDTIME [facility] Non-Formulary Medication (Rosuvastatin [Crestor]) 10 mg PO DAILY [facility] Non-Formulary Medication (Zolpidem) 10 mg PO BEDTIME PRN PRN Reason: Sleep Lisinopril/Hydrochlorothiazide 10-12.5mg Tab Ptom 0 tab PO DAILY [facility] Potassium Chloride 20 Meq Tablet.Er Ptom 0 meq PO DAILY [facility] Last Admin: 11/20/21 07:36 Dose: 20 meq Documented by: Rosuvastatin [ Crestor] 10 Mg Tablet Ptom 0 mg PO BEDTIME [facility] Last Admin: 11/19/21 20:04 Dose: 10 mg Documented by: Zolpidem 10 Mg (Tablet Ptom) 0 mg PO BEDTIME PRN PRN Reason: Sleep Last Admin: 11/19/21 20:14 Dose: 10 mg Documented by: Lisinopril/Hydrochlorothiazide 10-12.5mg Tab Ptom 0 tab PO DAILY [facility] Last Admin: 11/20/21 08:32 Dose: 1 tab Documented by: Potassium Chloride (Potassium Chloride 10 Meq Tab.Er) 20 meq PO BID [facility] Last Admin: 11/20/21 19:36 Dose: 20 meq Documented by: - Exam General: Alert, Oriented, No Acute Distress Neck: Supple Lungs: Clear to Auscultation, Normal Respiratory Effort Cardiovascular: Regular Rate, Regular Rhythm GI/Abdominal Exam: Normal Bowel Sounds, Soft, Non-Tender, No Organomegaly, No Distention, No Abnormal Bruit, No Mass, Pelvis Stable Back Exam: Normal Inspection, Full Range of Motion Extremities: Normal Inspection, Normal Range of Motion, Non-Tender, No Pedal Edema, Normal Capillary Refill, Leg Pain (LLE) Peripheral Pulses: 2+: Dorsalis Pedis (L), Dorsalis Pedis (R) Neurological: No New Focal Deficit Psy/Mental Status: Alert, Depressed, Other (flat affect) - Patient Data Lab Results Last 24 hrs: Laboratory Results - last 24 hr 11/22/21 11/22/21 Range/Units 06:55 06:55 WBC 7.3 (4.0-11.0) 10^3/uL RBC 3.63 L (4.00-5.50) x10^6/uL Hgb 9.4 L (12.0-16.0) g/dL Hct 30.5 L (37.0-47.0) % MCV 84.0 (83.0-97.0) fL MCH 25.9 L (27.0-32.0) pg MCHC 30.8 L (32.0-36.0) g/dL RDW Coeff of Reji 16.0 H (11.0-15.0) % Plt Count 218 (150-400) 10^3/uL Immature Gran % (Auto) 2.2 (0.0-4.9) % Neut % (Auto) 73.0 H (41-71) % Lymph % (Auto) 13.6 L (24-44) % Gladwin % (Auto) 8.5 (0-10) % Eos % (Auto) 2.6 (0-6) % Baso % (Auto) 0.1 (0-1) % Neut # (Auto) 5.32 (1.80-8.00) x10^3/uL Lymph # (Auto) 0.99 (0.60-5.00) 10^3/uL Gladwin # (Auto) 0.62 (0.00-1.50) 10^3/uL Eos # (Auto) 0.19 (0.00-1.50) 10^3/uL Baso # (Auto) 0.01 (0.00-0.50) 10^3/uL Immature Gran # (Auto) 0.16 (0.00-0.49) 10^3/uL Sodium 134 L (136-145) mEq/L Potassium 3.6 (3.5-5.0) mEq/L Chloride 101 (98-106) mEq/L Carbon Dioxide 24 (21-32) mmol/L BUN 10 (7-18) mg/dL Creatinine 0.6 (0.6-1.0) mg/dL Est Cr Clr Drug Dosing 69.99 mL/min Estimated GFR (MDRD) > 60 (>=60) mL/min Glucose 82 (75-99) mg/dL Calcium 8.0 L (8.4-10.1) mg/dL Magnesium 1.9 (1.8-2.4) mg/dL Result Diagrams: 11/22/21 06:55 11/22/21 06:55 Beni Results Last 24 hrs: Microbiology 11/19/21 13:30 Aerobic Blood Culture - Preliminary Blood - Venous - Lab Draw NO GROWTH AFTER 2 DAYS Anaerobic Blood Culture - Preliminary NO GROWTH AFTER 2 DAYS 11/19/21 13:25 Aerobic Blood Culture - Preliminary Blood - Venous NO GROWTH AFTER 2 DAYS Anaerobic Blood Culture - Preliminary NO GROWTH AFTER 2 DAYS 11/20/21 07:45 Clostridioides difficile Toxin Assay - Final Stool / Feces Sepsis Event Note - Evaluation Sepsis Screening Result: No Definite Risk - Focused Exam Vital Signs: Vital Signs Temp Pulse Resp BP Pulse Ox 11/22/21 08:00 99.5 F 67 16 138/63 97 11/22/21 03:00 98.4 F - Problem List & Annotations (1) C. difficile diarrhea SNOMED Code(s): 0570936039604 Code(s): A04.72 - ENTEROCOLITIS D/T CLOSTRIDIUM DIFFICILE, NOT SPCF RECUR Status: Acute Current Visit: Yes (2) Depression SNOMED Code(s): 30028176 Code(s): F32.A - DEPRESSION, UNSPECIFIED Status: Chronic Current Visit: Yes Qualifiers: Depression Type: major depressive disorder Major depression recurrence: unspecified whether recurrent Active/Remission status: currently active Major depression episode severity: severe Psychotic features: without psychotic features Qualified Code(s): F32.2 - Major depressive disorder, single episode, severe without psychotic features (3) Hypokalemia SNOMED Code(s): 47615046 Code(s): E87.6 - HYPOKALEMIA Status: Acute Priority: High Current Visit: Yes (4) Weakness SNOMED Code(s): 26459332 Code(s): R53.1 - WEAKNESS Status: Acute Current Visit: Yes (5) Adnexal mass SNOMED Code(s): 338064942 Code(s): N94.89 - OTH COND ASSOC W FEMALE GENITAL ORGANS AND MENSTRUAL CYCLE Status: Acute Current Visit: No - Problem List Review Problem List Initiated/Reviewed/Updated: Yes - My Orders Last 24 Hours: My Active Orders 11/22/21 12:54 Acetaminophen/HYDROcodone [[place] 325-5 MG] 1 tab PO Q6H PRN - Assessment Assessment:: C Diff Hypokalemia Weakness Depression Adnexal Mass - Plan Plan:: Patient did test positive for C. Diff, which we will initiate oral Vancomycin today. Potassium continues to be low at 3.0 today and will give 40mEq bump via IV. Magnesium ordered and was slightly low at 1.7, 2grams to be given IV today as well. Will start Telemetry with low potassium. Discussed findings with Rosi and her and patient transferred to acute care at this time. Will get p hysical therapy to work with patient likely starting tomorrow. Encouraged oRsi to increase activity and oral intake as well. Patient verbalized understanding and will closely monitor patient at this time. 11/21/2021 Labs all improved today. K improved to 3.7. Continue with oral KCL supplement. M agnesium 2.0. Hgb did drop to 8.8, likely dilutional. Will monitor daily labs. IVF d/c'd. Continue to push fluids/oral intake. Patient wishes to have telemetry off. Will d/c. Continue with oral vanco for cdiff. Stools are lessening. She is very depressed. Will consult mental health provider to see her when she is back from vacation. Continue with PT for strengthening. Will have pelvic US today for adnexal mass. Has [facility]ESTHESIOLOGY TEACH[facility] apt scheduled for Thursday. 11/22/2021 Labs all stable. Hgb stable. Continue to encourage oral intake and activity. Patient has been up ambulating in the halls with walker. Has been c/o more pain to left hip. Does not feel the Tylenol is adequate for pain control. Will add [place]. Awaiting consult with mental health provider. Continue Celexa. Continue PT for strengthening. Pelvic US inconclusive in identifying adnexal mass. Does show poorly defined shadowing adnexal mass measuring 5.4x4.4x2.5 cm- indeterminant etiology, possibly teratoma.Discussed this with patient. She does have ANESTHESIOLOGY TEACHER consult scheduled for Thursday. Patient seems to be getting around better with improvement in diarrhea. Anticipate either discharge home if strength improves and patient able to care for self vs. SNF d/c early next week.
[2021-11-22] MEDS: Acetaminophen/HYDROcodone 325-5 MG Tab PO PRN ×2 (13:44→19:49)
[2021-11-22] MEDS: rOPINIRole 1 MG Tab PO SCH (19:25)
[2021-11-22] MEDS: Simvastatin 40 MG Tab PO SCH (19:25)
[2021-11-22] MEDS: Zolpidem 5 MG Tab PO PRN (19:50)
[2021-11-23] MEDS: Acetaminophen/HYDROcodone 325-5 MG Tab PO PRN ×3 (03:35→22:30)
[2021-11-23] MEDS: LACTOBACILLUS ACIDOPHILUS PO SCH (07:33)
[2021-11-23] MEDS: Hydrochlorothiazide 12.5 MG Cap PO SCH (07:33)
[2021-11-23] MEDS: Vancomycin 125 MG Cap PO SCH ×4 (07:33→19:50)
[2021-11-23] MEDS: Citalopram 10 MG Tab PO SCH (07:33)
[2021-11-23] MEDS: Clopidogrel 75 MG Tab PO SCH (07:33)
[2021-11-23] MEDS: Calcium Carbonate/Vitamin D3 1250 MG-5 MCG Tab PO SCH (07:33)
[2021-11-23] MEDS: Aspirin 81 MG Tab.EC PO SCH (07:34)
[2021-11-23] MEDS: Potassium Chloride 10 MEQ Tab.ER PO SCH ×2 (07:34→17:25)
[2021-11-23] MEDS: Acetaminophen 325 MG Tab PO PRN (10:08)
[2021-11-23] MEDS: Simvastatin 40 MG Tab PO SCH (19:50)
[2021-11-23] MEDS: Zolpidem 5 MG Tab PO PRN (19:50)
[2021-11-23] MEDS: rOPINIRole 1 MG Tab PO SCH (19:52)
[2021-11-24] MEDS: Calcium Carbonate/Vitamin D3 1250 MG-5 MCG Tab PO SCH (07:36)
[2021-11-24] MEDS: Clopidogrel 75 MG Tab PO SCH (07:36)
[2021-11-24] MEDS: Citalopram 10 MG Tab PO SCH (07:36)
[2021-11-24] MEDS: Vancomycin 125 MG Cap PO SCH ×4 (07:36→20:06)
[2021-11-24] MEDS: LACTOBACILLUS ACIDOPHILUS PO SCH (07:36)
[2021-11-24] MEDS: Aspirin 81 MG Tab.EC PO SCH (07:36)
[2021-11-24] MEDS: Potassium Chloride 10 MEQ Tab.ER PO SCH ×2 (07:36→16:36)
[2021-11-24] MEDS: Hydrochlorothiazide 12.5 MG Cap PO SCH (07:36)
[2021-11-24] MEDS: Acetaminophen/HYDROcodone 325-5 MG Tab PO PRN ×3 (07:37→22:42)
[2021-11-24 08:20] LABS: CHLORIDE,CL 103 mEq/L (98-106); SODIUM,NA 138 mEq/L (136-145)
--- NOTE | 2021-11-24 13:11 | PCM.PN ---
- General Info Date of Service: 11/24/21 Admission Dx/Problem (Free Text): Weakness C. Diff Subjective Update: Rosi is a 71 yo female who was admitted to the hospital 11/19/2021 with weakness and fever. Had been having diarrhea for the past week. C diff upon admission as positive. She was started on oral vanco. She states she had one episode of loose stool this am, but otherwise continues to improve and has been eating well. Of more concern is her hip pain, which continues since her recent hip fracture. She states she had difficulty sleeping due to this, but she does have [place] 5/325 ordered prn, but she did not take before bedtime. We had been holding the Tramadol due to confusion, but she has taken [place] without issue on prn basis. She does have depression (son , 2 years ago in December, she has struggled but has never seen anyone for this)but states she hasn't thought much about whether her new med, Celexa 20 mg daily is working or not. She does smile and make a few jokes, which is encouraging based on her previous notes I reviewed. Recent imaging revealed adnexal mass. Patient has follow up appointments scheduled. Functional Status: Reports: Tolerating Diet, Ambulating, Other (hip pain worse at night) Pain Score: 2 - Review of Systems General: Reports: Weakness HEENT: Reports: No Symptoms Pulmonary: Reports: No Symptoms Cardiovascular: Reports: No Symptoms Gastrointestinal: Reports: Diarrhea Genitourinary: Reports: No Symptoms Musculoskeletal: Reports: Other (hip pain) Skin: Reports: No Symptoms Neurological: Reports: No Symptoms Psychiatric: Reports: Depression Systems Review Comment:: UNREMARKABLE EXCEPT HPI - Patient Data Vitals - Most Recent: Last Vital Signs Temp 36.6 C 11/24/21 08:34 Pulse 62 11/24/21 08:34 Resp 16 11/24/21 08:34 BP 161/67 H 11/24/21 08:34 Pulse Ox 97 11/24/21 08:34 Weight - Most Recent: 73.89 kg I&O - Last 24 Hours: Intake & Output 11/23/21 11/24/21 11/24/21 22:59 06:59 14:59 Intake Total 900 200 Output Total 1000 800 Balance -100 -600 Lab Results Last 24 Hours: Laboratory Results - last 24 hr 11/24/21 11/24/21 Range/Units 07:45 07:45 WBC 7.1 (4.0-11.0) 10^3/uL RBC 3.96 L (4.00-5.50) x10^6/uL Hgb 10.4 L (12.0-16.0) g/dL Hct 33.6 L (37.0-47.0) % MCV 84.8 (83.0-97.0) fL MCH 26.3 L (27.0-32.0) pg MCHC 31.0 L (32.0-36.0) g/dL RDW Coeff of Reji 15.9 H (11.0-15.0) % Plt Count 300 (150-400) 10^3/uL Immature Gran % (Auto) 6.9 H (0.0-4.9) % Neut % (Auto) 56.6 (41-71) % Lymph % (Auto) 25.0 (24-44) % [place] % (Auto) 7.3 (0-10) % Eos % (Auto) 3.5 (0-6) % Baso % (Auto) 0.7 (0-1) % Neut # (Auto) 4.00 (1.80-8.00) x10^3/uL Lymph # (Auto) 1.77 (0.60-5.00) 10^3/uL [place] # (Auto) 0.52 (0.00-1.50) 10^3/uL Eos # (Auto) 0.25 (0.00-1.50) 10^3/uL Baso # (Auto) 0.05 (0.00-0.50) 10^3/uL Immature Gran # (Auto) 0.49 (0.00-0.49) 10^3/uL Sodium 138 (136-145) mEq/L Potassium 4.4 D (3.5-5.0) mEq/L Chloride 103 (98-106) mEq/L Carbon Dioxide 29 (21-32) mmol/L BUN 7 (7-18) mg/dL Creatinine 0.5 L (0.6-1.0) mg/dL Est Cr Clr Drug Dosing 83.99 mL/min Estimated GFR (MDRD) > 60 (>=60) mL/min Glucose 94 (75-99) mg/dL Calcium 8.3 L (8.4-10.1) mg/dL Magnesium 1.6 L (1.8-2.4) mg/dL Total Bilirubin 0.3 (0.0-1.0) mg/dL AST 66 H (15-37) U/L ALT 12 (12-78) U/L Alkaline Phosphatase 196 H (46-116) U/L Total Protein 5.7 L (6.4-8.2) g/dL Albumin 2.5 L (3.4-5.0) g/dL Beni Results Last 24 Hours: Microbiology 11/19/21 13:30 Aerobic Blood Culture - Preliminary Blood - Venous - Lab Draw NO GROWTH AFTER 4 DAYS Anaerobic Blood Culture - Preliminary NO GROWTH AFTER 4 DAYS 11/19/21 13:25 Aerobic Blood Culture - Preliminary Blood - Venous NO GROWTH AFTER 4 DAYS Anaerobic Blood Culture - Preliminary NO GROWTH AFTER 4 DAYS Med Orders - Current: Current Medications Acetaminophen (Acetaminophen 325 Mg Tab) 650 mg PO Q4H PRN PRN Reason: Pain (Mild 1-3)/fever Last Admin: 11/23/21 10:08 Dose: 650 mg Documented by: Hydrocodone Bitart/Acetaminophen (Acetaminophen/Hydrocodone 325-5 Mg Tab) 1 tab PO Q6H PRN PRN Reason: Pain (moderate 4-6) Last Admin: 11/24/21 07:37 Dose: 1 tab Documented by: Aspirin (Aspirin 81 Mg Tab.Ec) 81 mg PO DAILY [facility] Last Admin: 11/24/21 07:36 Dose: 81 mg Documented by: Calcium Carbonate (Calcium Carbonate/Vitamin D3 1250 Mg-5 Mcg Tab) 2 tab PO DAILY [facility] Last Admin: 11/24/21 07:36 Dose: 2 tab Documented by: Citalopram Hydrobromide (Citalopram 10 Mg Tab) 20 mg PO DAILY [facility] Last Admin: 11/24/21 07:36 Dose: 20 mg Documented by: Clopidogrel Bisulfate (Clopidogrel 75 Mg Tab) 75 mg PO DAILY [facility] Last Admin: 11/24/21 07:36 Dose: 75 mg Documented by: Hydrochlorothiazide (Hydrochlorothiazide 12.5 Mg Cap) 12.5 mg PO DAILY [facility] Last Admin: 11/24/21 07:36 Dose: 12.5 mg Documented by: Magnesium Oxide (Magnesium Oxide 250 Mg Tab) 250 mg PO WITHBREAKFAST [facility] Lactobacillus Acidophilus [ Probiotic] 1 Capsule Ptom 0 each PO DAILY [facility] Last Admin: 11/24/21 07:36 Dose: 1 each Documented by: Oxyquinoline Sulfate (Oxyquinoline/Emollient 0.3% Oint 1 Oz Canister) 0 oz TOP ASDIRECTED PRN PRN Reason: Rash Last Admin: 11/20/21 11:54 Dose: 1 applic Documented by: Potassium Chloride (Potassium Chloride 10 Meq Tab.Er) 20 meq PO BID@0800,1730 [facility] Last Admin: 11/24/21 07:36 Dose: 20 meq Documented by: Ropinirole HCl (Ropinirole 1 Mg Tab) 0.5 mg PO BEDTIME [facility] Last Admin: 11/23/21 19:52 Dose: 0.5 mg Documented by: Simvastatin (Simvastatin 40 Mg Tab) 40 mg PO BEDTIME [facility] Last Admin: 11/23/21 19:50 Dose: 40 mg Documented by: Vancomycin HCl (Vancomycin 125 Mg Cap) 125 mg PO QID [facility] Stop: 11/30/21 12:01 Last Admin: 11/24/21 07:36 Dose: 125 mg Documented by: Zolpidem Tartrate (Zolpidem 5 Mg Tab) 10 mg PO BEDTIME PRN PRN Reason: Sleep Last Admin: 11/23/21 19:50 Dose: 10 mg Documented by: Discontinued Medications Citalopram Hydrobromide (Citalopram 10 Mg Tab) 20 mg PO DAILY [facility] Citalopram Hydrobromide (Citalopram 10 Mg Tab Ptom) 20 mg PO DAILY [facility] Citalopram Hydrobromide (Citalopram 10 Mg Tab Ptom) 20 mg PO DAILY [facility] Last Admin: 11/20/21 08:32 Dose: 20 mg Documented by: Clopidogrel Bisulfate (Clopidogrel 75 Mg Tab Ptom) 75 mg PO DAILY [facility] Last Admin: 11/20/21 07:36 Dose: 75 mg Documented by: Enoxaparin Sodium (Enoxaparin 30 Mg/0.3 Ml Syringe) 30 mg SUBCUT Q24H [facility] Potassium Chloride 40 meq/ (Premix) 100 mls @ 25 mls/hr IV ONETIME ONE Stop: 11/19/21 11:09 Last Admin: 11/19/21 07:57 Dose: 25 mls/hr Documented by: Sodium Chloride (Normal Saline) 500 mls @ 25 mls/hr IV ASDIRECTED [facility] Last Admin: 11/19/21 07:58 Dose: 25 mls/hr Documented by: Potassium Chloride/Sodium Chloride (Normal Saline With 20 Meq Kcl) 1,000 mls @ 100 mls/hr IV ASDIRECTED [facility] Stop: 11/21/21 00:59 Last Admin: 11/20/21 19:35 Dose: 100 mls/hr Documented by: Magnesium Sulfate 2 gm/ Premix 50 mls @ 25 mls/hr IV ONETIME ONE Stop: 11/20/21 13:59 Last Admin: 11/20/21 11:45 Dose: 25 mls/hr Documented by: Potassium Chloride 40 meq/ (Premix) 100 mls @ 25 mls/hr IV ONETIME ONE Stop: 11/20/21 17:59 Last Admin: 11/20/21 13:52 Dose: 25 mls/hr Documented by: Sodium Chloride (Normal Saline) 1,000 mls @ 250 mls/hr IV ONETIME ONE Stop: 11/20/21 17:50 Last Admin: 11/20/21 13:56 Dose: 250 mls/hr Documented by: Lisinopril (Lisinopril 10 Mg Tab) 10 mg PO DAILY [facility] Non-Formulary Medication (Lactobacillus Acidophilus [Probiotic]) 1 each PO DAILY [facility] Non-Formulary Medication (Lisinopril/Hydrochlorothiazide) 1 tab PO DAILY [facility] Non-Formulary Medication (Potassium Chloride [Potassium Chloride]) 20 meq PO DAILY [facility] Non-Formulary Medication (Ropinirole [Requip]) 0.5 mg PO BEDTIME [facility] Non-Formulary Medication (Rosuvastatin [Crestor]) 10 mg PO DAILY [facility] Non-Formulary Medication (Zolpidem) 10 mg PO BEDTIME PRN PRN Reason: Sleep Lisinopril/Hydrochlorothiazide 10-12.5mg Tab Ptom 0 tab PO DAILY [facility] Potassium Chloride 20 Meq Tablet.Er Ptom 0 meq PO DAILY [facility] Last Admin: 11/20/21 07:36 Dose: 20 meq Documented by: Rosuvastatin [ Crestor] 10 Mg Tablet Ptom 0 mg PO BEDTIME [facility] Last Admin: 11/19/21 20:04 Dose: 10 mg Documented by: Zolpidem 10 Mg (Tablet Ptom) 0 mg PO BEDTIME PRN PRN Reason: Sleep Last Admin: 11/19/21 20:14 Dose: 10 mg Documented by: Lisinopril/Hydrochlorothiazide 10-12.5mg Tab Ptom 0 tab PO DAILY [facility] Last Admin: 11/20/21 08:32 Dose: 1 tab Documented by: Potassium Chloride (Potassium Chloride 10 Meq Tab.Er) 20 meq PO BID [facility] Last Admin: 11/20/21 19:36 Dose: 20 meq Documented by: - Exam General: Alert, Oriented, Cooperative, No Acute Distress HEENT: Pupils Equal Neck: Supple Lungs: Clear to Auscultation, Normal Respiratory Effort Cardiovascular: Regular Rate, Regular Rhythm GI/Abdominal Exam: Normal Bowel Sounds, Soft, Non-Tender, No Distention (continued hip pain, but stable gait ) (Female) Exam: Other (DEFERRED) Back Exam: Normal Inspection Extremities: Normal Inspection, No Pedal Edema Skin: Warm, Dry, Intact Wound/Incisions: Other (NA) Neurological: No New Focal Deficit Psy/Mental Status: Alert, Depressed - Patient Data Lab Results Last 24 hrs: Laboratory Results - last 24 hr 11/24/21 11/24/21 Range/Units 07:45 07:45 WBC 7.1 (4.0-11.0) 10^3/uL RBC 3.96 L (4.00-5.50) x10^6/uL Hgb 10.4 L (12.0-16.0) g/dL Hct 33.6 L (37.0-47.0) % MCV 84.8 (83.0-97.0) fL MCH 26.3 L (27.0-32.0) pg MCHC 31.0 L (32.0-36.0) g/dL RDW Coeff of Reji 15.9 H (11.0-15.0) % Plt Count 300 (150-400) 10^3/uL Immature Gran % (Auto) 6.9 H (0.0-4.9) % Neut % (Auto) 56.6 (41-71) % Lymph % (Auto) 25.0 (24-44) % [place] % (Auto) 7.3 (0-10) % Eos % (Auto) 3.5 (0-6) % Baso % (Auto) 0.7 (0-1) % Neut # (Auto) 4.00 (1.80-8.00) x10^3/uL Lymph # (Auto) 1.77 (0.60-5.00) 10^3/uL [place] # (Auto) 0.52 (0.00-1.50) 10^3/uL Eos # (Auto) 0.25 (0.00-1.50) 10^3/uL Baso # (Auto) 0.05 (0.00-0.50) 10^3/uL Immature Gran # (Auto) 0.49 (0.00-0.49) 10^3/uL Sodium 138 (136-145) mEq/L Potassium 4.4 D (3.5-5.0) mEq/L Chloride 103 (98-106) mEq/L Carbon Dioxide 29 (21-32) mmol/L BUN 7 (7-18) mg/dL Creatinine 0.5 L (0.6-1.0) mg/dL Est Cr Clr Drug Dosing 83.99 mL/min Estimated GFR (MDRD) > 60 (>=60) mL/min Glucose 94 (75-99) mg/dL Calcium 8.3 L (8.4-10.1) mg/dL Magnesium 1.6 L (1.8-2.4) mg/dL Total Bilirubin 0.3 (0.0-1.0) mg/dL AST 66 H (15-37) U/L ALT 12 (12-78) U/L Alkaline Phosphatase 196 H (46-116) U/L Total Protein 5.7 L (6.4-8.2) g/dL Albumin 2.5 L (3.4-5.0) g/dL Result Diagrams: 11/24/21 07:45 11/24/21 07:45 Beni Results Last 24 hrs: Microbiology 11/19/21 13:30 Aerobic Blood Culture - Preliminary Blood - Venous - Lab Draw NO GROWTH AFTER 4 DAYS Anaerobic Blood Culture - Preliminary NO GROWTH AFTER 4 DAYS 11/19/21 13:25 Aerobic Blood Culture - Preliminary Blood - Venous NO GROWTH AFTER 4 DAYS Anaerobic Blood Culture - Preliminary NO GROWTH AFTER 4 DAYS Sepsis Event Note - Evaluation Sepsis Screening Result: No Definite Risk - Focused Exam Vital Signs: Vital Signs Temp Pulse Resp BP Pulse Ox 11/24/21 08:34 36.6 C 62 16 161/67 H 97 - Problem List & Annotations (1) Hypomagnesemia SNOMED Code(s): 831409702 Code(s): E83.42 - HYPOMAGNESEMIA Status: Acute Priority: High Current Visit: Yes Onset Date: ~11/19/21 (2) C. difficile diarrhea SNOMED Code(s): 7393083511346 Code(s): A04.72 - ENTEROCOLITIS D/T CLOSTRIDIUM DIFFICILE, NOT SPCF RECUR Status: Acute Current Visit: Yes (3) Hypokalemia SNOMED Code(s): 98555393 Code(s): E87.6 - HYPOKALEMIA Status: Acute Priority: High Current Visit: Yes (4) Weakness SNOMED Code(s): 46032594 Code(s): R53.1 - WEAKNESS Status: Acute Current Visit: Yes (5) Depression SNOMED Code(s): 30334525 Code(s): F32.A - DEPRESSION, UNSPECIFIED Status: Chronic Current Visit: Yes Qualifiers: Depression Type: major depressive disorder Major depression recurrence: unspecified whether recurrent Active/Remission status: currently active Major depression episode severity: severe Psychotic features: without psychotic features Qualified Code(s): F32.2 - Major depressive disorder, single episode, severe without psychotic features (6) Adnexal mass SNOMED Code(s): 296234405 Code(s): N94.89 - OTH COND ASSOC W FEMALE GENITAL ORGANS AND MENSTRUAL CYCLE Status: Acute Current Visit: No - Problem List Review Problem List Initiated/Reviewed/Updated: Yes - My Orders Last 24 Hours: My Active Orders 11/25/21 08:00 Magnesium Oxide 250 mg PO WITHBREAKFAST STARTING TODAY - Assessment Assessment:: Assessment / Plan 1) C. Diff - patient continues on oral vancomycin. Diarrhea is improving. Consider possible discharge Thursday or Thursday. 2) Hypokalemia - resolved based on labs today 3) Hypomagnesemia - add magnesium oxide 250 mg daily 4) Depression - patient continues on Celexa 20 mg daily. Low magnesium can enhance depressive symptoms; replace magnesium to normal levels and re-check prior to discharge. Consider sending home on magnesium and re-check levels regularly with primary care provider. 5) Generalized weakness - PT consult and active participation with home exercises. 6) Adnexal mass - consult with [employer] already scheduled. 7) Hip pain - [place] 5/325 1-2 tabs SCHEDULED at bedtime, continue with 1-2 tabs PO q 6 prn otherwise, not to exceed 6 tabs per day.
--- NOTE | 2021-11-24 14:39 | PCM.PN ---
- General Info Date of Service: 11/23/21 Admission Dx/Problem (Free Text): C. Diff Weakness Hypokalemia Hip pain Subjective Update: Rosi is a 71 yo female who was admitted to the hospital 11/20/2021 with weakness and fever. Had been having diarrhea for the past week. C diff upon admission as positive. She was started on oral vanco and has been slowly improving with improvement in appetite and ambulation. Her other issue has been hip pain since a hip fracture. Recently she was started on prn Noroc and that has helped. Patient is on 20 mg Celexa for depression. Please see previous notes in that regard. Her potassium level has been corrected. The other issue had been low magnesium. She had been given meds to correct both of those and had improved on previous labs. Overall, patient states she is feeling better and improving daily. Functional Status: Reports: Tolerating Diet, Ambulating, Urinating - Review of Systems General: Reports: Weakness, Malaise HEENT: Reports: No Symptoms Pulmonary: Reports: No Symptoms Cardiovascular: Reports: No Symptoms Gastrointestinal: Reports: Diarrhea Genitourinary: Reports: No Symptoms Musculoskeletal: Reports: Other (hip pain) Neurological: Reports: No Symptoms Psychiatric: Reports: Depression - Patient Data Vitals - Most Recent: Last Vital Signs Temp 36.6 C 11/24/21 08:34 Pulse 62 11/24/21 08:34 Resp 16 11/24/21 08:34 BP 161/67 H 11/24/21 08:34 Pulse Ox 97 11/24/21 08:34 Weight - Most Recent: 73.89 kg I&O - Last 24 Hours: Intake & Output 11/23/21 11/24/21 11/24/21 22:59 06:59 14:59 Intake Total 900 200 Output Total 1000 800 Balance -100 -600 Lab Results Last 24 Hours: Laboratory Results - last 24 hr 11/24/21 11/24/21 Range/Units 07:45 07:45 WBC 7.1 (4.0-11.0) 10^3/uL RBC 3.96 L (4.00-5.50) x10^6/uL Hgb 10.4 L (12.0-16.0) g/dL Hct 33.6 L (37.0-47.0) % MCV 84.8 (83.0-97.0) fL MCH 26.3 L (27.0-32.0) pg MCHC 31.0 L (32.0-36.0) g/dL RDW Coeff of Reji 15.9 H (11.0-15.0) % Plt Count 300 (150-400) 10^3/uL Immature Gran % (Auto) 6.9 H (0.0-4.9) % Neut % (Auto) 56.6 (41-71) % Lymph % (Auto) 25.0 (24-44) % [place] % (Auto) 7.3 (0-10) % Eos % (Auto) 3.5 (0-6) % Baso % (Auto) 0.7 (0-1) % Neut # (Auto) 4.00 (1.80-8.00) x10^3/uL Lymph # (Auto) 1.77 (0.60-5.00) 10^3/uL [place] # (Auto) 0.52 (0.00-1.50) 10^3/uL Eos # (Auto) 0.25 (0.00-1.50) 10^3/uL Baso # (Auto) 0.05 (0.00-0.50) 10^3/uL Immature Gran # (Auto) 0.49 (0.00-0.49) 10^3/uL Sodium 138 (136-145) mEq/L Potassium 4.4 D (3.5-5.0) mEq/L Chloride 103 (98-106) mEq/L Carbon Dioxide 29 (21-32) mmol/L BUN 7 (7-18) mg/dL Creatinine 0.5 L (0.6-1.0) mg/dL Est Cr Clr Drug Dosing 83.99 mL/min Estimated GFR (MDRD) > 60 (>=60) mL/min Glucose 94 (75-99) mg/dL Calcium 8.3 L (8.4-10.1) mg/dL Magnesium 1.6 L (1.8-2.4) mg/dL Total Bilirubin 0.3 (0.0-1.0) mg/dL AST 66 H (15-37) U/L ALT 12 (12-78) U/L Alkaline Phosphatase 196 H (46-116) U/L Total Protein 5.7 L (6.4-8.2) g/dL Albumin 2.5 L (3.4-5.0) g/dL Beni Results Last 24 Hours: Microbiology 11/19/21 13:30 Aerobic Blood Culture - Final Blood - Venous - Lab Draw NO GROWTH AFTER 5 DAYS Anaerobic Blood Culture - Final NO GROWTH AFTER 5 DAYS 11/19/21 13:25 Aerobic Blood Culture - Final Blood - Venous NO GROWTH AFTER 5 DAYS Anaerobic Blood Culture - Final NO GROWTH AFTER 5 DAYS Med Orders - Current: Current Medications Acetaminophen (Acetaminophen 325 Mg Tab) 650 mg PO Q4H PRN PRN Reason: Pain (Mild 1-3)/fever Last Admin: 11/23/21 10:08 Dose: 650 mg Documented by: Hydrocodone Bitart/Acetaminophen (Acetaminophen/Hydrocodone 325-5 Mg Tab) 1 tab PO Q6H PRN PRN Reason: Pain (moderate 4-6) Last Admin: 11/24/21 07:37 Dose: 1 tab Documented by: Aspirin (Aspirin 81 Mg Tab.Ec) 81 mg PO DAILY [facility] Last Admin: 11/24/21 07:36 Dose: 81 mg Documented by: Calcium Carbonate (Calcium Carbonate/Vitamin D3 1250 Mg-5 Mcg Tab) 2 tab PO DAILY [facility] Last Admin: 11/24/21 07:36 Dose: 2 tab Documented by: Citalopram Hydrobromide (Citalopram 10 Mg Tab) 20 mg PO DAILY [facility] Last Admin: 11/24/21 07:36 Dose: 20 mg Documented by: Clopidogrel Bisulfate (Clopidogrel 75 Mg Tab) 75 mg PO DAILY [facility] Last Admin: 11/24/21 07:36 Dose: 75 mg Documented by: Hydrochlorothiazide (Hydrochlorothiazide 12.5 Mg Cap) 12.5 mg PO DAILY [facility] Last Admin: 11/24/21 07:36 Dose: 12.5 mg Documented by: Magnesium Oxide (Magnesium Oxide 250 Mg Tab) 250 mg PO BIDMEALS [facility] Last Admin: 11/24/21 14:23 Dose: 250 mg Documented by: Lactobacillus Acidophilus [ Probiotic] 1 Capsule Ptom 0 each PO DAILY [facility] Last Admin: 11/24/21 07:36 Dose: 1 each Documented by: Oxyquinoline Sulfate (Oxyquinoline/Emollient 0.3% Oint 1 Oz Canister) 0 oz TOP ASDIRECTED PRN PRN Reason: Rash Last Admin: 11/20/21 11:54 Dose: 1 applic Documented by: Potassium Chloride (Potassium Chloride 10 Meq Tab.Er) 20 meq PO BID@0800,1730 [facility] Last Admin: 11/24/21 07:36 Dose: 20 meq Documented by: Ropinirole HCl (Ropinirole 1 Mg Tab) 0.5 mg PO BEDTIME [facility] Last Admin: 11/23/21 19:52 Dose: 0.5 mg Documented by: Simvastatin (Simvastatin 40 Mg Tab) 40 mg PO BEDTIME [facility] Last Admin: 11/23/21 19:50 Dose: 40 mg Documented by: Vancomycin HCl (Vancomycin 125 Mg Cap) 125 mg PO QID [facility] Stop: 11/30/21 12:01 Last Admin: 11/24/21 13:38 Dose: 125 mg Documented by: Zolpidem Tartrate (Zolpidem 5 Mg Tab) 10 mg PO BEDTIME PRN PRN Reason: Sleep Last Admin: 11/23/21 19:50 Dose: 10 mg Documented by: Discontinued Medications Citalopram Hydrobromide (Citalopram 10 Mg Tab) 20 mg PO DAILY [facility] Citalopram Hydrobromide (Citalopram 10 Mg Tab Ptom) 20 mg PO DAILY [facility] Citalopram Hydrobromide (Citalopram 10 Mg Tab Ptom) 20 mg PO DAILY [facility] Last Admin: 11/20/21 08:32 Dose: 20 mg Documented by: Clopidogrel Bisulfate (Clopidogrel 75 Mg Tab Ptom) 75 mg PO DAILY [facility] Last Admin: 11/20/21 07:36 Dose: 75 mg Documented by: Enoxaparin Sodium (Enoxaparin 30 Mg/0.3 Ml Syringe) 30 mg SUBCUT Q24H [facility] Potassium Chloride 40 meq/ (Premix) 100 mls @ 25 mls/hr IV ONETIME ONE Stop: 11/19/21 11:09 Last Admin: 11/19/21 07:57 Dose: 25 mls/hr Documented by: Sodium Chloride (Normal Saline) 500 mls @ 25 mls/hr IV ASDIRECTED [facility] Last Admin: 11/19/21 07:58 Dose: 25 mls/hr Documented by: Potassium Chloride/Sodium Chloride (Normal Saline With 20 Meq Kcl) 1,000 mls @ 100 mls/hr IV ASDIRECTED [facility] Stop: 11/21/21 00:59 Last Admin: 11/20/21 19:35 Dose: 100 mls/hr Documented by: Magnesium Sulfate 2 gm/ Premix 50 mls @ 25 mls/hr IV ONETIME ONE Stop: 11/20/21 13:59 Last Admin: 11/20/21 11:45 Dose: 25 mls/hr Documented by: Potassium Chloride 40 meq/ (Premix) 100 mls @ 25 mls/hr IV ONETIME ONE Stop: 11/20/21 17:59 Last Admin: 11/20/21 13:52 Dose: 25 mls/hr Documented by: Sodium Chloride (Normal Saline) 1,000 mls @ 250 mls/hr IV ONETIME ONE Stop: 11/20/21 17:50 Last Admin: 11/20/21 13:56 Dose: 250 mls/hr Documented by: Lisinopril (Lisinopril 10 Mg Tab) 10 mg PO DAILY [facility] Magnesium Oxide (Magnesium Oxide 250 Mg Tab) 250 mg PO WITHBREAKFAST [facility] Non-Formulary Medication (Lactobacillus Acidophilus [Probiotic]) 1 each PO DAILY [facility] Non-Formulary Medication (Lisinopril/Hydrochlorothiazide) 1 tab PO DAILY [facility] Non-Formulary Medication (Potassium Chloride [Potassium Chloride]) 20 meq PO DAILY [facility] Non-Formulary Medication (Ropinirole [Requip]) 0.5 mg PO BEDTIME [facility] Non-Formulary Medication (Rosuvastatin [Crestor]) 10 mg PO DAILY [facility] Non-Formulary Medication (Zolpidem) 10 mg PO BEDTIME PRN PRN Reason: Sleep Lisinopril/Hydrochlorothiazide 10-12.5mg Tab Ptom 0 tab PO DAILY [facility] Potassium Chloride 20 Meq Tablet.Er Ptom 0 meq PO DAILY [facility] Last Admin: 11/20/21 07:36 Dose: 20 meq Documented by: Rosuvastatin [ Crestor] 10 Mg Tablet Ptom 0 mg PO BEDTIME [facility] Last Admin: 11/19/21 20:04 Dose: 10 mg Documented by: Zolpidem 10 Mg (Tablet Ptom) 0 mg PO BEDTIME PRN PRN Reason: Sleep Last Admin: 11/19/21 20:14 Dose: 10 mg Documented by: Lisinopril/Hydrochlorothiazide 10-12.5mg Tab Ptom 0 tab PO DAILY [facility] Last Admin: 11/20/21 08:32 Dose: 1 tab Documented by: Potassium Chloride (Potassium Chloride 10 Meq Tab.Er) 20 meq PO BID [facility] Last Admin: 11/20/21 19:36 Dose: 20 meq Documented by: - Exam General: Alert, Oriented, No Acute Distress HEENT: Pupils Equal, Pupils Reactive Lungs: Clear to Auscultation Cardiovascular: Regular Rate GI/Abdominal Exam: Normal Bowel Sounds, Soft, Non-Tender, No Distention Back Exam: Normal Inspection Extremities: Normal Inspection, No Pedal Edema Skin: Warm, Dry, Intact Neurological: No New Focal Deficit Psy/Mental Status: Alert, Normal Affect, Depressed - Patient Data Lab Results Last 24 hrs: Laboratory Results - last 24 hr 11/24/21 11/24/21 Range/Units 07:45 07:45 WBC 7.1 (4.0-11.0) 10^3/uL RBC 3.96 L (4.00-5.50) x10^6/uL Hgb 10.4 L (12.0-16.0) g/dL Hct 33.6 L (37.0-47.0) % MCV 84.8 (83.0-97.0) fL MCH 26.3 L (27.0-32.0) pg MCHC 31.0 L (32.0-36.0) g/dL RDW Coeff of Reji 15.9 H (11.0-15.0) % Plt Count 300 (150-400) 10^3/uL Immature Gran % (Auto) 6.9 H (0.0-4.9) % Neut % (Auto) 56.6 (41-71) % Lymph % (Auto) 25.0 (24-44) % [place] % (Auto) 7.3 (0-10) % Eos % (Auto) 3.5 (0-6) % Baso % (Auto) 0.7 (0-1) % Neut # (Auto) 4.00 (1.80-8.00) x10^3/uL Lymph # (Auto) 1.77 (0.60-5.00) 10^3/uL [place] # (Auto) 0.52 (0.00-1.50) 10^3/uL Eos # (Auto) 0.25 (0.00-1.50) 10^3/uL Baso # (Auto) 0.05 (0.00-0.50) 10^3/uL Immature Gran # (Auto) 0.49 (0.00-0.49) 10^3/uL Sodium 138 (136-145) mEq/L Potassium 4.4 D (3.5-5.0) mEq/L Chloride 103 (98-106) mEq/L Carbon Dioxide 29 (21-32) mmol/L BUN 7 (7-18) mg/dL Creatinine 0.5 L (0.6-1.0) mg/dL Est Cr Clr Drug Dosing 83.99 mL/min Estimated GFR (MDRD) > 60 (>=60) mL/min Glucose 94 (75-99) mg/dL Calcium 8.3 L (8.4-10.1) mg/dL Magnesium 1.6 L (1.8-2.4) mg/dL Total Bilirubin 0.3 (0.0-1.0) mg/dL AST 66 H (15-37) U/L ALT 12 (12-78) U/L Alkaline Phosphatase 196 H (46-116) U/L Total Protein 5.7 L (6.4-8.2) g/dL Albumin 2.5 L (3.4-5.0) g/dL Result Diagrams: 11/24/21 07:45 11/24/21 07:45 Beni Results Last 24 hrs: Microbiology 11/19/21 13:30 Aerobic Blood Culture - Final Blood - Venous - Lab Draw NO GROWTH AFTER 5 DAYS Anaerobic Blood Culture - Final NO GROWTH AFTER 5 DAYS 11/19/21 13:25 Aerobic Blood Culture - Final Blood - Venous NO GROWTH AFTER 5 DAYS Anaerobic Blood Culture - Final NO GROWTH AFTER 5 DAYS Sepsis Event Note - Evaluation Sepsis Screening Result: No Definite Risk - Focused Exam Vital Signs: Vital Signs Temp Pulse Resp BP Pulse Ox 11/24/21 08:34 36.6 C 62 16 161/67 H 97 - Problem List & Annotations (1) C. difficile diarrhea SNOMED Code(s): 0378604156472 Code(s): A04.72 - ENTEROCOLITIS D/T CLOSTRIDIUM DIFFICILE, NOT SPCF RECUR Status: Acute Current Visit: Yes (2) Hypokalemia SNOMED Code(s): 99380085 Code(s): E87.6 - HYPOKALEMIA Status: Acute Priority: High Current Visit: Yes (3) Weakness SNOMED Code(s): 58442062 Code(s): R53.1 - WEAKNESS Status: Acute Current Visit: Yes (4) Depression SNOMED Code(s): 77259728 Code(s): F32.A - DEPRESSION, UNSPECIFIED Status: Chronic Current Visit: Yes Qualifiers: Depression Type: major depressive disorder Major depression recurrence: unspecified whether recurrent Active/Remission status: currently active Major depression episode severity: severe Psychotic features: without psychotic features Qualified Code(s): F32.2 - Major depressive disorder, single episode, severe without psychotic features (5) Adnexal mass SNOMED Code(s): 826695309 Code(s): N94.89 - OTH COND ASSOC W FEMALE GENITAL ORGANS AND MENSTRUAL CYCLE Status: Acute Current Visit: No - Problem List Review Problem List Initiated/Reviewed/Updated: Yes - My Orders Last 24 Hours: My Active Orders 11/24/21 14:15 Magnesium Oxide 250 mg PO BIDMEALS - Assessment Assessment:: Assessment / Plan 1) C. Diff - patient continues on oral vancomycin. Diarrhea is improving. Consider possible discharge Thursday or Thursday. 2) Hypokalemia - resolved based on labs today. Re-check labs tomorrow 3) Hypomagnesemia - check labs tomorrow and replace if low 4) Depression - patient continues on Celexa 20 mg daily. Has consult with mental health scheduled. 5) Generalized weakness - PT consult and active participation with home exercises. Patient has low hemoglobin. Continue to monitor with labs tomorrow. 6) Adnexal mass - consult with [employer] already scheduled. 7) Hip pain - Patient has norco 5/325 1-2 tabs po q 6 prn. PT consult.
[2021-11-24] MEDS ORDERED: Acetaminophen/HYDROcodone 325-5 MG Tab PO SCH (20:00)
[2021-11-24] MEDS: Simvastatin 40 MG Tab PO SCH (20:00)
[2021-11-24] MEDS: Zolpidem 5 MG Tab PO PRN (20:00)
[2021-11-24] MEDS: rOPINIRole 1 MG Tab PO SCH (20:01)
[2021-11-25] MEDS: Potassium Chloride 10 MEQ Tab.ER PO SCH (07:53)
[2021-11-25] MEDS: Citalopram 10 MG Tab PO SCH (07:53)
[2021-11-25] MEDS: Vancomycin 125 MG Cap PO SCH ×2 (07:53→13:21)
[2021-11-25] MEDS: Clopidogrel 75 MG Tab PO SCH (07:53)
[2021-11-25] MEDS: Calcium Carbonate/Vitamin D3 1250 MG-5 MCG Tab PO SCH (07:53)
[2021-11-25] MEDS: Aspirin 81 MG Tab.EC PO SCH (07:53)
[2021-11-25] MEDS: Hydrochlorothiazide 12.5 MG Cap PO SCH (07:54)
[2021-11-25] MEDS: LACTOBACILLUS ACIDOPHILUS PO SCH (07:56)
[2021-11-25] MEDS: Acetaminophen/HYDROcodone 325-5 MG Tab PO PRN (08:00)
--- NOTE | 2021-11-25 09:54 | PCM.DCSUM1 ---
Discharge Summary - Hospital Course Free Text/Narrative:: Rosi is a 71 yo female who was admitted to the hospital 11/20/2021 with weakness and fever. Had been having diarrhea for the past week. C diff upon admission as positive. She was started on oral vanco and has been slowly improving with improvement in appetite and ambulation. Her other issue has been hip pain since a hip fracture. Recently she was started on prn Noroc and that has helped. Patient is on 20 mg Celexa for depression. Please see previous notes in that regard. Her potassium level has been corrected. The other issue had been low magnesium. She had been given meds to correct both of those and had improved on previous labs. Overall, patient states she is feeling better and improving daily. Assessment / Plan 1) C. Diff - patient continues on oral vancomycin. Diarrhea is improving. Consider possible discharge Thursday or Thursday. 2) Hypokalemia - resolved based on labs today. Re-check labs tomorrow 3) Hypomagnesemia - check labs tomorrow and replace if low 4) Depression - patient continues on Celexa 20 mg daily. Has consult with mental health scheduled. 5) Generalized weakness - PT consult and active participation with home exercises. Patient has low hemoglobin. Continue to monitor with labs tomorrow. 6) Adnexal mass - consult with [employer]ATE already scheduled. 7) Hip pain - Patient has norco 5/325 1-2 tabs po q 6 prn. PT consult. - Discharge Data Discharge Date: 11/25/21 Discharge Disposition: DC/Tfer to [facility] Condition: Good - Referral to Home Health Primary Care Physician: VIVEK Hastings - Discharge Diagnosis/Problem(s) (1) C. difficile diarrhea SNOMED Code(s): 6234040158043 ICD Code: A04.72 - ENTEROCOLITIS D/T CLOSTRIDIUM DIFFICILE, NOT SPCF RECUR Status: Acute Current Visit: Yes (2) Hypokalemia SNOMED Code(s): 20409089 ICD Code: E87.6 - HYPOKALEMIA Status: Acute Priority: High Current Visit: Yes (3) Weakness SNOMED Code(s): 25575101 ICD Code: R53.1 - WEAKNESS Status: Acute Current Visit: Yes (4) Depression SNOMED Code(s): 07211008 ICD Code: F32.A - DEPRESSION, UNSPECIFIED Status: Chronic Current Visit: Yes Qualifiers: Depression Type: major depressive disorder Major depression recurrence: unspecified whether recurrent Active/Remission status: currently active Major depression episode severity: severe Psychotic features: without psychotic features Qualified Code(s): F32.2 - Major depressive disorder, single episode, severe without psychotic features (5) Adnexal mass SNOMED Code(s): 065590329 ICD Code: N94.89 - OTH COND ASSOC W FEMALE GENITAL ORGANS AND MENSTRUAL CYCLE Status: Acute Current Visit: No - Patient Summary/Data Consults: Consultations 11/21/21 08:00 Consult to Physical Therapy [PT Evaluation and Treatment] [CONS] Routine 11/21/21 11:16 Consult to Behavioral Health [Behavioral Health Evaluation] [CONS] Routine - Discharge Plan Home Medications: Home Meds Clopidogrel [Plavix] 75 mg PO DAILY 10/27/21 [History] Lactobacillus Acidophilus [Probiotic] 1 each PO DAILY #30 capsule 10/27/21 [Rx] Lisinopril/Hydrochlorothiazide [Lisinopril-HCTZ 10-12.5 MG] 1 tab PO DAILY 10/27/21 [History] Potassium Chloride 20 meq PO DAILY #14 tablet.er 10/27/21 [Rx] Rosuvastatin [Crestor] 10 mg PO DAILY 10/27/21 [History] Zolpidem [Ambien] 10 mg PO BEDTIME PRN 10/27/21 [History] rOPINIRole [Requip] 0.5 mg PO BEDTIME 10/27/21 [History] Calcium Carbonate/Vitamin D3 [Calcium Carbonate/Vitamin D 1250 MG - 5 MCG] 2 tab PO DAILY #60 tablet 11/15/21 [Rx] Citalopram [Citalopram HBr] 20 mg PO DAILY #30 tablet 11/15/21 [Rx] traMADol [Ultram] 50 mg PO Q6H PRN #60 tablet 11/15/21 [Rx] Forms: ED Department Discharge Referrals: Flaquita Herron PA [Primary Care Provider] - - Patient Data Vitals - Most Recent: Last Vital Signs Temp 36.5 C 11/25/21 08:00 Pulse 71 11/25/21 08:00 Resp 20 11/25/21 08:00 BP 153/69 H 11/25/21 08:00 Pulse Ox 97 11/25/21 08:00 Weight - Most Recent: 73.89 kg I&O - Last 24 hours: Intake & Output 11/24/21 11/25/21 11/25/21 22:59 06:59 14:59 Intake Total 1000 100 Output Total 1300 Balance -300 100 REGAN Results - Last 24 hrs: Microbiology 11/19/21 13:30 Aerobic Blood Culture - Final Blood - Venous - Lab Draw NO GROWTH AFTER 5 DAYS Anaerobic Blood Culture - Final NO GROWTH AFTER 5 DAYS 11/19/21 13:25 Aerobic Blood Culture - Final Blood - Venous NO GROWTH AFTER 5 DAYS Anaerobic Blood Culture - Final NO GROWTH AFTER 5 DAYS Med Orders - Current: Current Medications Acetaminophen (Acetaminophen 325 Mg Tab) 650 mg PO Q4H PRN PRN Reason: Pain (Mild 1-3)/fever Last Admin: 11/23/21 10:08 Dose: 650 mg Documented by: Hydrocodone Bitart/Acetaminophen (Acetaminophen/Hydrocodone 325-5 Mg Tab) 1 - 2 tab PO Q6H PRN PRN Reason: Pain (moderate 4-6) Last Admin: 11/25/21 08:00 Dose: 2 tab Documented by: Aspirin (Aspirin 81 Mg Tab.Ec) 81 mg PO DAILY [facility] Last Admin: 11/25/21 07:53 Dose: 81 mg Documented by: Calcium Carbonate (Calcium Carbonate/Vitamin D3 1250 Mg-5 Mcg Tab) 2 tab PO DAILY [facility] Last Admin: 11/25/21 07:53 Dose: 2 tab Documented by: Citalopram Hydrobromide (Citalopram 10 Mg Tab) 20 mg PO DAILY [facility] [place] Last Admin: 11/25/21 07:53 Dose: 20 mg Documented by: Clopidogrel Bisulfate (Clopidogrel 75 Mg Tab) 75 mg PO DAILY [facility] Last Admin: 11/25/21 07:53 Dose: 75 mg Documented by: Hydrochlorothiazide (Hydrochlorothiazide 12.5 Mg Cap) 12.5 mg PO DAILY [facility] [place] Last Admin: 11/25/21 07:54 Dose: 12.5 mg Documented by: Magnesium Oxide (Magnesium Oxide 250 Mg Tab) 250 mg PO BIDMEALS [facility] [place] Last Admin: 11/25/21 07:54 Dose: 250 mg Documented by: Lactobacillus Acidophilus [ Probiotic] 1 Capsule Ptom 0 each PO DAILY [facility] Last Admin: 11/25/21 07:56 Dose: 1 each Documented by: Oxyquinoline Sulfate (Oxyquinoline/Emollient 0.3% Oint 1 Oz Canister) 0 oz TOP ASDIRECTED PRN PRN Reason: Rash Last Admin: 11/20/21 11:54 Dose: 1 applic Documented by: Potassium Chloride (Potassium Chloride 10 Meq Tab.Er) 20 meq PO BID@0800,1730 [facility] Last Admin: 11/25/21 07:53 Dose: 20 meq Documented by: Ropinirole HCl (Ropinirole 1 Mg Tab) 0.5 mg PO BEDTIME [facility] Last Admin: 11/24/21 20:01 Dose: 0.5 mg Documented by: Simvastatin (Simvastatin 40 Mg Tab) 40 mg PO BEDTIME [facility] Last Admin: 11/24/21 20:00 Dose: 40 mg Documented by: Vancomycin HCl (Vancomycin 125 Mg Cap) 125 mg PO QID [facility] Stop: 11/30/21 12:01 Last Admin: 11/25/21 07:53 Dose: 125 mg Documented by: Zolpidem Tartrate (Zolpidem 5 Mg Tab) 10 mg PO BEDTIME PRN PRN Reason: Sleep Last Admin: 11/24/21 20:00 Dose: 10 mg Documented by: Discontinued Medications Hydrocodone Bitart/Acetaminophen (Acetaminophen/Hydrocodone 325-5 Mg Tab) 1 tab PO Q6H PRN PRN Reason: Pain (moderate 4-6) Last Admin: 11/24/21 07:37 Dose: 1 tab Documented by: Hydrocodone Bitart/Acetaminophen (Acetaminophen/Hydrocodone 325-5 Mg Tab) 1 - 2 tab PO BEDTIME [facility] Citalopram Hydrobromide (Citalopram 10 Mg Tab) 20 mg PO DAILY [facility] Citalopram Hydrobromide (Citalopram 10 Mg Tab Ptom) 20 mg PO DAILY [facility] Citalopram Hydrobromide (Citalopram 10 Mg Tab Ptom) 20 mg PO DAILY [facility] [place] Last Admin: 11/20/21 08:32 Dose: 20 mg Documented by: Clopidogrel Bisulfate (Clopidogrel 75 Mg Tab Ptom) 75 mg PO DAILY [facility] [place] Last Admin: 11/20/21 07:36 Dose: 75 mg Documented by: Enoxaparin Sodium (Enoxaparin 30 Mg/0.3 Ml Syringe) 30 mg SUBCUT Q24H [facility] [place] Potassium Chloride 40 meq/ (Premix) 100 mls @ 25 mls/hr IV ONETIME ONE Stop: 11/19/21 11:09 Last Admin: 11/19/21 07:57 Dose: 25 mls/hr Documented by: Sodium Chloride (Normal Saline) 500 mls @ 25 mls/hr IV ASDIRECTED [facility] Last Admin: 11/19/21 07:58 Dose: 25 mls/hr Documented by: Potassium Chloride/Sodium Chloride (Normal Saline With 20 Meq Kcl) 1,000 mls @ 100 mls/hr IV ASDIRECTED [facility] Stop: 11/21/21 00:59 Last Admin: 11/20/21 19:35 Dose: 100 mls/hr Documented by: Magnesium Sulfate 2 gm/ Premix 50 mls @ 25 mls/hr IV ONETIME ONE Stop: 11/20/21 13:59 Last Admin: 11/20/21 11:45 Dose: 25 mls/hr Documented by: Potassium Chloride 40 meq/ (Premix) 100 mls @ 25 mls/hr IV ONETIME ONE Stop: 11/20/21 17:59 Last Admin: 11/20/21 13:52 Dose: 25 mls/hr Documented by: Sodium Chloride (Normal Saline) 1,000 mls @ 250 mls/hr IV ONETIME ONE Stop: 11/20/21 17:50 Last Admin: 11/20/21 13:56 Dose: 250 mls/hr Documented by: Lisinopril (Lisinopril 10 Mg Tab) 10 mg PO DAILY [facility] Magnesium Oxide (Magnesium Oxide 250 Mg Tab) 250 mg PO WITHBREAKFAST [facility] Non-Formulary Medication (Lactobacillus Acidophilus [Probiotic]) 1 each PO DAILY [facility] Non-Formulary Medication (Lisinopril/Hydrochlorothiazide) 1 tab PO DAILY [facility] Non-Formulary Medication (Potassium Chloride [Potassium Chloride]) 20 meq PO DAILY [facility] Non-Formulary Medication (Ropinirole [Requip]) 0.5 mg PO BEDTIME [facility] Non-Formulary Medication (Rosuvastatin [Crestor]) 10 mg PO DAILY [facility] Non-Formulary Medication (Zolpidem) 10 mg PO BEDTIME PRN PRN Reason: Sleep Lisinopril/Hydrochlorothiazide 10-12.5mg Tab Ptom 0 tab PO DAILY [facility] Potassium Chloride 20 Meq Tablet.Er Ptom 0 meq PO DAILY [facility] Last Admin: 11/20/21 07:36 Dose: 20 meq Documented by: Rosuvastatin [ Crestor] 10 Mg Tablet Ptom 0 mg PO BEDTIME [facility] [place] Last Admin: 11/19/21 20:04 Dose: 10 mg Documented by: Zolpidem 10 Mg (Tablet Ptom) 0 mg PO BEDTIME PRN PRN Reason: Sleep Last Admin: 11/19/21 20:14 Dose: 10 mg Documented by: Lisinopril/Hydrochlorothiazide 10-12.5mg Tab Ptom 0 tab PO DAILY [facility] [place] Last Admin: 11/20/21 08:32 Dose: 1 tab Documented by: Potassium Chloride (Potassium Chloride 10 Meq Tab.Er) 20 meq PO BID [facility] [place] Last Admin: 11/20/21 19:36 Dose: 20 meq Documented by:
--- NOTE | 2021-11-25 11:36 | PCM.DCSUM1 ---
Discharge Summary - Hospital Course Free Text/Narrative:: Rosi is a 71 yo female who was admitted to the hospital 11/20/2021 with weakness and fever. Had been having diarrhea for the past week. C diff upon admission as positive. She was started on oral vanco and has been slowly improving with improvement in appetite and ambulation. Her other issue has been hip pain since a hip fracture. Recently she was started on prn Noroc and that has helped. Patient is on 20 mg Celexa for depression. Please see previous notes in that regard. Today she did have a consult with mental health for assessment and they are going to keep her on the same medication for now as it hasn't been even one month. Of note, her potassium level has been corrected. The other issue had been consistent low magnesium. Yesterday, she was started on magnesium oxide 250 mg daily. Overall, patient states she is feeling better and improving daily. Patient is adamant that she does not want to go to the [facility] so she will be discharged with home health consult. - Discharge Data Discharge Date: 11/25/21 Discharge Disposition: Home, W Home Health Agency 06 Condition: Good - Referral to Home Health Date of Face to Face Encounter: 11/25/21 Reason for Homebound Status: Impaired mobility due to recent surgery Primary Care Physician: VIVEK Hastings Skilled Need: PT and Home Health - Discharge Diagnosis/Problem(s) (1) C. difficile diarrhea SNOMED Code(s): 6678984685195 ICD Code: A04.72 - ENTEROCOLITIS D/T CLOSTRIDIUM DIFFICILE, NOT SPCF RECUR Status: Acute Current Visit: Yes (2) Hypokalemia SNOMED Code(s): 62182763 ICD Code: E87.6 - HYPOKALEMIA Status: Acute Priority: High Current Visit: Yes (3) Weakness SNOMED Code(s): 74971443 ICD Code: R53.1 - WEAKNESS Status: Acute Current Visit: Yes (4) Depression SNOMED Code(s): 73504547 ICD Code: F32.A - DEPRESSION, UNSPECIFIED Status: Chronic Current Visit: Yes Qualifiers: Depression Type: major depressive disorder Major depression recurrence: unspecified whether recurrent Active/Remission status: currently active Major depression episode severity: severe Psychotic features: without psychotic features Qualified Code(s): F32.2 - Major depressive disorder, single episode, severe without psychotic features (5) Adnexal mass SNOMED Code(s): 645474660 ICD Code: N94.89 - OTH COND ASSOC W FEMALE GENITAL ORGANS AND MENSTRUAL CYCLE Status: Acute Current Visit: No - Patient Summary/Data Consults: Consultations 11/21/21 08:00 Consult to Physical Therapy [PT Evaluation and Treatment] [CONS] Routine 11/21/21 11:16 Consult to Behavioral Health [Behavioral Health Evaluation] [CONS] Routine - Patient Instructions Diet: Regular Diet as Tolerated Activity: As Tolerated - Discharge Plan *PRESCRIPTION DRUG MONITORING PROGRAM REVIEWED*: Not Applicable *COPY OF PRESCRIPTION DRUG MONITORING REPORT IN PATIENT VERITO: Not Applicable Home Medications: Home Meds Clopidogrel [Plavix] 75 mg PO DAILY 10/27/21 [History] Lactobacillus Acidophilus [Probiotic] 1 each PO DAILY #30 capsule 10/27/21 [Rx] Lisinopril/Hydrochlorothiazide [Lisinopril-HCTZ 10-12.5 MG] 1 tab PO DAILY 10/27/21 [History] Potassium Chloride 20 meq PO DAILY #14 tablet.er 10/27/21 [Rx] Rosuvastatin [Crestor] 10 mg PO DAILY 10/27/21 [History] Zolpidem [Ambien] 10 mg PO BEDTIME PRN 10/27/21 [History] rOPINIRole [Requip] 0.5 mg PO BEDTIME 10/27/21 [History] Calcium Carbonate/Vitamin D3 [Calcium Carbonate/Vitamin D 1250 MG - 5 MCG] 2 tab PO DAILY #60 tablet 11/15/21 [Rx] Citalopram [Citalopram HBr] 20 mg PO DAILY #30 tablet 11/15/21 [Rx] traMADol [Ultram] 50 mg PO Q6H PRN #60 tablet 11/15/21 [Rx] Forms: ED Department Discharge Referrals: Pawel Faith MD [ED Physician] - Flaquita Herron PA [Primary Care Provider] - - Discharge Summary/Plan Comment DC Time >30 min.: Yes Total # of Minutes for Discharge Time: 60 minutes Discharge Summary/Plan Comment: Assessment / Plan 1) C. Diff - patient continues on oral vancomycin. Continue antibiotics at home. 2) Hypokalemia - resolved based on labs today. 3) Hypomagnesemia - continues to be low. Continue on Magnesium oxide 250 mg daily at home until re-check values with primary care provider. 4) Depression - patient continues on Celexa 20 mg daily. Has had consult with mental health provider who advises to stay on current medication and dose. Follow up as needed. 5) Generalized weakness - PT consult and active participation with home exercises. Patient has home health who will monitor. 6) Adnexal mass - consult with [employer] [employer] already scheduled for tomorrow. 7) Hip pain - baseline. Again, continue with PT and home health. 8) Anemia - stable and likely chronic. Follow up with primary. Patient discharged today with home health, PT and [facility] [employer] [facility] consult. All questions and concerns answered. Follow with primary as needed and return if worsen. - Patient Data Vitals - Most Recent: Last Vital Signs Temp 36.5 C 11/25/21 08:00 Pulse 71 11/25/21 08:00 Resp 20 11/25/21 08:00 BP 153/69 H 11/25/21 08:00 Pulse Ox 97 11/25/21 08:00 Weight - Most Recent: 73.89 kg I&O - Last 24 hours: Intake & Output 11/24/21 11/25/21 11/25/21 22:59 06:59 14:59 Intake Total 1000 100 Output Total 1300 Balance -300 100 REGAN Results - Last 24 hrs: Microbiology 11/19/21 13:30 Aerobic Blood Culture - Final Blood - Venous - Lab Draw NO GROWTH AFTER 5 DAYS Anaerobic Blood Culture - Final NO GROWTH AFTER 5 DAYS 11/19/21 13:25 Aerobic Blood Culture - Final Blood - Venous NO GROWTH AFTER 5 DAYS Anaerobic Blood Culture - Final NO GROWTH AFTER 5 DAYS Med Orders - Current: Current Medications Acetaminophen (Acetaminophen 325 Mg Tab) 650 mg PO Q4H PRN PRN Reason: Pain (Mild 1-3)/fever Last Admin: 11/23/21 10:08 Dose: 650 mg Documented by: Hydrocodone Bitart/Acetaminophen (Acetaminophen/Hydrocodone 325-5 Mg Tab) 1 - 2 tab PO Q6H PRN PRN Reason: Pain (moderate 4-6) Last Admin: 11/25/21 08:00 Dose: 2 tab Documented by: Aspirin (Aspirin 81 Mg Tab.Ec) 81 mg PO DAILY [facility] Last Admin: 11/25/21 07:53 Dose: 81 mg Documented by: Calcium Carbonate (Calcium Carbonate/Vitamin D3 1250 Mg-5 Mcg Tab) 2 tab PO DAILY [facility] Last Admin: 11/25/21 07:53 Dose: 2 tab Documented by: Citalopram Hydrobromide (Citalopram 10 Mg Tab) 20 mg PO DAILY [facility] Last Admin: 11/25/21 07:53 Dose: 20 mg Documented by: Clopidogrel Bisulfate (Clopidogrel 75 Mg Tab) 75 mg PO DAILY [facility] Last Admin: 11/25/21 07:53 Dose: 75 mg Documented by: Hydrochlorothiazide (Hydrochlorothiazide 12.5 Mg Cap) 12.5 mg PO DAILY [facility] Last Admin: 11/25/21 07:54 Dose: 12.5 mg Documented by: Magnesium Oxide (Magnesium Oxide 250 Mg Tab) 250 mg PO BIDMEALS [facility] Last Admin: 11/25/21 07:54 Dose: 250 mg Documented by: Lactobacillus Acidophilus [ Probiotic] 1 Capsule Ptom 0 each PO DAILY [facility] Last Admin: 11/25/21 07:56 Dose: 1 each Documented by: Oxyquinoline Sulfate (Oxyquinoline/Emollient 0.3% Oint 1 Oz Canister) 0 oz TOP ASDIRECTED PRN PRN Reason: Rash Last Admin: 11/20/21 11:54 Dose: 1 applic Documented by: Potassium Chloride (Potassium Chloride 10 Meq Tab.Er) 20 meq PO BID@0800,1730 [facility] Last Admin: 11/25/21 07:53 Dose: 20 meq Documented by: Ropinirole HCl (Ropinirole 1 Mg Tab) 0.5 mg PO BEDTIME [facility] Last Admin: 11/24/21 20:01 Dose: 0.5 mg Documented by: Simvastatin (Simvastatin 40 Mg Tab) 40 mg PO BEDTIME [facility] Last Admin: 11/24/21 20:00 Dose: 40 mg Documented by: Vancomycin HCl (Vancomycin 125 Mg Cap) 125 mg PO QID [facility] Stop: 11/30/21 12:01 Last Admin: 11/25/21 07:53 Dose: 125 mg Documented by: Zolpidem Tartrate (Zolpidem 5 Mg Tab) 10 mg PO BEDTIME PRN PRN Reason: Sleep Last Admin: 11/24/21 20:00 Dose: 10 mg Documented by: Discontinued Medications Hydrocodone Bitart/Acetaminophen (Acetaminophen/Hydrocodone 325-5 Mg Tab) 1 tab PO Q6H PRN PRN Reason: Pain (moderate 4-6) Last Admin: 11/24/21 07:37 Dose: 1 tab Documented by: Hydrocodone Bitart/Acetaminophen (Acetaminophen/Hydrocodone 325-5 Mg Tab) 1 - 2 tab PO BEDTIME [facility] Citalopram Hydrobromide (Citalopram 10 Mg Tab) 20 mg PO DAILY [facility] Citalopram Hydrobromide (Citalopram 10 Mg Tab Ptom) 20 mg PO DAILY [facility] Citalopram Hydrobromide (Citalopram 10 Mg Tab Ptom) 20 mg PO DAILY [facility] Last Admin: 11/20/21 08:32 Dose: 20 mg Documented by: Clopidogrel Bisulfate (Clopidogrel 75 Mg Tab Ptom) 75 mg PO DAILY [facility] Last Admin: 11/20/21 07:36 Dose: 75 mg Documented by: Enoxaparin Sodium (Enoxaparin 30 Mg/0.3 Ml Syringe) 30 mg SUBCUT Q24H [facility] Potassium Chloride 40 meq/ (Premix) 100 mls @ 25 mls/hr IV ONETIME ONE Stop: 11/19/21 11:09 Last Admin: 11/19/21 07:57 Dose: 25 mls/hr Documented by: Sodium Chloride (Normal Saline) 500 mls @ 25 mls/hr IV ASDIRECTED [facility] Last Admin: 11/19/21 07:58 Dose: 25 mls/hr Documented by: Potassium Chloride/Sodium Chloride (Normal Saline With 20 Meq Kcl) 1,000 mls @ 100 mls/hr IV ASDIRECTED [facility] Stop: 11/21/21 00:59 Last Admin: 11/20/21 19:35 Dose: 100 mls/hr Documented by: Magnesium Sulfate 2 gm/ Premix 50 mls @ 25 mls/hr IV ONETIME ONE Stop: 11/20/21 13:59 Last Admin: 11/20/21 11:45 Dose: 25 mls/hr Documented by: Potassium Chloride 40 meq/ (Premix) 100 mls @ 25 mls/hr IV ONETIME ONE Stop: 11/20/21 17:59 Last Admin: 11/20/21 13:52 Dose: 25 mls/hr Documented by: Sodium Chloride (Normal Saline) 1,000 mls @ 250 mls/hr IV ONETIME ONE Stop: 11/20/21 17:50 Last Admin: 11/20/21 13:56 Dose: 250 mls/hr Documented by: Lisinopril (Lisinopril 10 Mg Tab) 10 mg PO DAILY [facility] Magnesium Oxide (Magnesium Oxide 250 Mg Tab) 250 mg PO WITHBREAKFAST [facility] Non-Formulary Medication (Lactobacillus Acidophilus [Probiotic]) 1 each PO DAILY [facility] Non-Formulary Medication (Lisinopril/Hydrochlorothiazide) 1 tab PO DAILY [facility] Non-Formulary Medication (Potassium Chloride [Potassium Chloride]) 20 meq PO DAILY [facility] Non-Formulary Medication (Ropinirole [Requip]) 0.5 mg PO BEDTIME [facility] Non-Formulary Medication (Rosuvastatin [Crestor]) 10 mg PO DAILY [facility] Non-Formulary Medication (Zolpidem) 10 mg PO BEDTIME PRN PRN Reason: Sleep Lisinopril/Hydrochlorothiazide 10-12.5mg Tab Ptom 0 tab PO DAILY [facility] Potassium Chloride 20 Meq Tablet.Er Ptom 0 meq PO DAILY [facility] Last Admin: 11/20/21 07:36 Dose: 20 meq Documented by: Rosuvastatin [ Crestor] 10 Mg Tablet Ptom 0 mg PO BEDTIME [facility] Last Admin: 11/19/21 20:04 Dose: 10 mg Documented by: Zolpidem 10 Mg (Tablet Ptom) 0 mg PO BEDTIME PRN PRN Reason: Sleep Last Admin: 11/19/21 20:14 Dose: 10 mg Documented by: Lisinopril/Hydrochlorothiazide 10-12.5mg Tab Ptom 0 tab PO DAILY [facility] Last Admin: 11/20/21 08:32 Dose: 1 tab Documented by: Potassium Chloride (Potassium Chloride 10 Meq Tab.Er) 20 meq PO BID [facility] Last Admin: 11/20/21 19:36 Dose: 20 meq Documented by:
--- NOTE | 2021-11-26 08:37 | PCM.CONSBH ---
Hx. Present Illness - - General Date of Service: 11/25/21 Admit Problem/Dx: C. Diff Weakness Hypokalemia Hip pain Source of Information: Reports: Patient, EMS Notes Reviewed, RN Notes Reviewed - History of Present Illness Onset of Symptoms: Reports: Gradual (noticed depressive symptoms started about two years ago after of her son), Unknown/Unsure Duration of Symptoms: Reports: Chronic, Getting Worse - Related Data Allergies/Adverse Reactions: Allergies Allergy/AdvReac Type Severity Reaction Status Date / Time No Known Allergies Allergy Verified 11/19/21 15:06 Home Medications: Home Meds Clopidogrel [Plavix] 75 mg PO DAILY 10/27/21 [History] Lactobacillus Acidophilus [Probiotic] 1 each PO DAILY #30 capsule 10/27/21 [Rx] Lisinopril/Hydrochlorothiazide [Lisinopril-HCTZ 10-12.5 MG] 1 tab PO DAILY 10/27/21 [History] Potassium Chloride 20 meq PO DAILY #14 tablet.er 10/27/21 [Rx] Rosuvastatin [Crestor] 10 mg PO DAILY 10/27/21 [History] Zolpidem [Ambien] 10 mg PO BEDTIME PRN 10/27/21 [History] rOPINIRole [Requip] 0.5 mg PO BEDTIME 10/27/21 [History] Calcium Carbonate/Vitamin D3 [Calcium Carbonate/Vitamin D 1250 MG - 5 MCG] 2 tab PO DAILY #60 tablet 11/15/21 [Rx] Citalopram [Citalopram HBr] 20 mg PO DAILY #30 tablet 11/15/21 [Rx] traMADol [Ultram] 50 mg PO Q6H PRN #60 tablet 11/15/21 [Rx] Hydrocodone/Acetaminophen [HYDROcodone-Acetaminophen 5-325 MG] 1 each PO Q8HR PRN #30 tab 11/25/21 [Rx] Magnesium Oxide [Mag-Oxide Magnesium] 200 mg PO DAILY #30 tablet 11/25/21 [Rx] Past Medical Hx - Other GI Hx: pt states "mass around kidney or ovary". Psychiatric Hx: Reports: Depression Social & Family History - - Alcohol Use Alcohol Use History: Yes Review of Systems - - Review of Systems: Review Of Systems: Comprehensive ROS is negative, except as noted in HPI. Psychiatric: Reports: Depression Exam - - Exam Exam: See Below - Vital Signs Vital Signs: Last Vital Signs Temp 36.5 C 11/25/21 08:00 Pulse 71 11/25/21 08:00 Resp 20 11/25/21 08:00 BP 153/69 H 11/25/21 08:00 Pulse Ox 97 11/25/21 08:00 - Exam Mental Status Exam: General appearance: adult female, wearing hospital gown, sitting in recliner chair, short edwards hair. Mood: patient describes her mood as "sad" Affect: blunted. becomes tearful when talking about her child. Suicidal/Homicidal ideations: patient denies. Behavior: cooperative. Speech: clear, coherent, spontaneous Thought Process: goal directed, linear, logical Thought Content: denies delusions or hallucinations. Abnormal Motor Movements: normal Judgment/Insight: developmentally appropriate / intact Orientation: oriented to person, place and time. Attention Span and Concentration: normal. Musculoskeletal: did not assess as patient sitting in chair during visit - Plan FREE TEXT/NARRATIVE: Patient has complaints of depression that appear to have started after the of one of her sons. It will be two years this December since he passed. She was started on Citalopram around 11/06/21. Patient denies improvement to depressive symptoms at this time. Nursing staff report patient likes to sit in her room alone in the dark. Patient describes her mood as "sad" and rates her depression as 10/10. She denies suicidal ideation. Patient reports poor sleep even with use of Ambien however it appears she is sleeping during the night per EMR. Appetite reported as fair. Patient has been on Escitalopram in the past but stopped taking it in June, because she did not feel it was working for her. She denies any past history of sexual or physical abuse. Patient and has been for 48 years. Describer her relationship with her as "normal" and reports feeling safe at home. She had two sons, one two years ago and the other lives in [place]-44 y/o. At this time will not make changes to medication as she has not been on it for 8 weeks. Will have patient follow up in clinic in two weeks with undersign. - Orders Orders Last 24hrs: Active Orders 24 hr Category Date Time Status Discharge Patient [ADT] Routine ADT 11/25/21 13:57 Ordered Patient Status Discharge Transfer [TRANSFER] Routine ADT 11/25/21 09:49 Ordered TeleHealth - TeleHealth Patient Service Facility: [facility]: [facility] Patient Service Location: Inpatient Informed Consent: Telemedicine Audio/Visual Informed Consent: The risks, benefits, and alternatives to the telehealth visit were explained to the patient and the patient consented to this modality of care. The telehealth visit was carried out via a secure, web-based conferencing system. This telemedicine service was a real-time, two-way interactive video and communication between the patient and the provider. All the parties involved were identified and approved by the patient prior to the visit. Any physical exam was assisted by the patient. Unless noted otherwise, the provider was located at their usual clinic location, and the patient was at their place of residence. Patient identity was confirmed by having the patient state their name and date of . All communications with the patient (verbal, audiovisual, and written) were documented in the patients medical record per documentation standards.
== END 2021-11-25 14:53 | disposition home health service (06) | DRG 372 ==
LOC: CC.ED 05:29 → CC.MS 13:54 → UNDOADMOB 13:59 → CC.MS 13:59 → UNDODISOB 14:00 → OBSVTOIN 11-20 11:30
PROVIDERS: ADMIT Nurse Practitioner Family; ATTEND Family Medicine
DX: A04.72 Enterocolitis due to Clostridium difficile, not specified as recurrent (principal); R50.9 Fever, unspecified; F32.2 Major depressive disorder, single episode, severe without psychotic features; E87.6 Hypokalemia; R53.1 Weakness; N94.89 Other specified conditions associated with female genital organs and menstrual cycle; Z79.02 Long term (current) use of antithrombotics/antiplatelets; Z79.899 Other long term (current) drug therapy; Z20.822 Contact with and (suspected) exposure to COVID-19; E83.42 Hypomagnesemia; N85.9 Noninflammatory disorder of uterus, unspecified; M25.559 Pain in unspecified hip; D64.9 Anemia, unspecified; E78.00 Pure hypercholesterolemia, unspecified; W19.XXXA Unspecified fall, initial encounter; Y92.009 Unspecified place in unspecified non-institutional (private) residence as the place of occurrence of the external cause
CPT/HCPCS: 36415 ×2; 71045; 73552; 80048; 80053; 81001; 83735; 85025 ×2; 87040 ×2; 87324; 87493; 96365; 96366; 99285; A9270 ×15; J3480 ×3; J7040; U0002; 76856; 93005; 97110-GP; 97161-GP; G0378; J3475; J7030

== ENCOUNTER 2021-11-29 07:45 | Observation (INO) | payer MEDICARE ==
--- NOTE | 2021-11-29 08:12 | EDM.PDOC ---
ED HPI GENERAL MEDICAL PROBLEM - General Chief Complaint: Gastrointestinal Problem Stated Complaint: SICK Time Seen by Provider: 11/29/21 08:05 Source of Information: Reports: Patient History Limitations: Reports: No Limitations - History of Present Illness INITIAL COMMENTS - FREE TEXT/NARRATIVE: States diarrhea since Thursday. Recently treated for c-diff. Onset Date: 11/27/21 Duration: Getting Worse Location: Reports: Abdomen Improves with: Reports: None Worsens with: Reports: None Generalized Pain Score (Numeric/FACES): 0 - Related Data Allergies Allergy/AdvReac Type Severity Reaction Status Date / Time No Known Allergies Allergy Verified 11/29/21 08:12 Home Meds: Home Meds Clopidogrel [Plavix] 75 mg PO DAILY 10/27/21 [History] Lactobacillus Acidophilus [Probiotic] 1 each PO DAILY #30 capsule 10/27/21 [Rx] Lisinopril/Hydrochlorothiazide [Lisinopril-HCTZ 10-12.5 MG] 1 tab PO DAILY 10/27/21 [History] Potassium Chloride 20 meq PO DAILY #14 tablet.er 10/27/21 [Rx] Rosuvastatin [Crestor] 10 mg PO DAILY 10/27/21 [History] Zolpidem [Ambien] 10 mg PO BEDTIME PRN 10/27/21 [History] rOPINIRole [Requip] 0.5 mg PO BEDTIME 10/27/21 [History] Calcium Carbonate/Vitamin D3 [Calcium Carbonate/Vitamin D 1250 MG - 5 MCG] 2 tab PO DAILY #60 tablet 11/15/21 [Rx] Citalopram [Citalopram HBr] 20 mg PO DAILY #30 tablet 11/15/21 [Rx] Hydrocodone/Acetaminophen [HYDROcodone-Acetaminophen 5-325 MG] 1 each PO Q8HR PRN #30 tab 11/25/21 [Rx] Magnesium Oxide [Mag-Oxide Magnesium] 200 mg PO DAILY #30 tablet 11/25/21 [Rx] Past Medical History Cardiovascular History: Reports: High Cholesterol Gastrointestinal History: Reports: Other (See Below) Other Gastrointestinal History: pt states "mass around kidney or ovary". - Infectious Disease History Infectious Disease History: Reports: None Social & Family History - Family History Family Medical History: No Pertinent Family History - Caffeine Use Caffeine Use: Reports: None ED ROS GENERAL - Review of Systems Review Of Systems: Comprehensive ROS is negative, except as noted in HPI. ED EXAM, GI/ABD - Physical Exam Exam: See Below Exam Limited By: No Limitations General Appearance: Alert, No Apparent Distress Eyes: Bilateral: EOMI Ears: Normal External Exam Nose: Normal Inspection, Normal Mucosa, No Blood Throat/Mouth: Normal Lips, Normal Voice, No Airway Compromise Head: Atraumatic, Normocephalic Neck: Normal Inspection, Supple, Non-Tender, Full Range of Motion Respiratory/Chest: No Respiratory Distress, Lungs Clear, Normal Breath Sounds, No Accessory Muscle Use Cardiovascular: Normal Peripheral Pulses, Regular Rate, Rhythm GI/Abdominal Exam: Normal Bowel Sounds, Soft, Non-Tender, No Distention Back Exam: Normal Inspection, Full Range of Motion Extremities: Normal Inspection, Normal Capillary Refill Neurological: Alert, Oriented, Normal Cognition, No Motor/Sensory Deficits Psychiatric: Normal Affect, Normal Mood Skin Exam: Warm, Dry, Intact, Normal Color Lymphatic: No Adenopathy Course - Vital Signs Last Recorded V/S: Last Vital Signs Temp 97 F 11/29/21 08:08 Pulse 82 11/29/21 08:08 Resp 20 11/29/21 08:08 BP 130/75 11/29/21 08:08 Pulse Ox 96 11/29/21 08:08 - Orders/Labs/Meds Orders: Active Orders 24 hr Category Date Time Status Sodium Chloride 0.9% [Normal Saline] 250 ml Med 11/29/21 08:15 Active IV ASDIRECTED Medication Orders Sodium Chloride (Normal Saline) 250 mls @ 250 mls/hr IV ASDIRECTED [facility] Last Admin: 11/29/21 08:40 Dose: 250 mls/hr Documented by: DIEUDONNE Labs: Laboratory Tests 11/29/21 11/29/21 Range/Units 08:15 08:15 WBC 17.9 H (4.0-11.0) 10^3/uL RBC 4.46 (4.00-5.50) x10^6/uL Hgb 11.7 L (12.0-16.0) g/dL Hct 38.2 (37.0-47.0) % MCV 85.7 (83.0-97.0) fL MCH 26.2 L (27.0-32.0) pg MCHC 30.6 L (32.0-36.0) g/dL RDW Coeff of Reji 16.6 H (11.0-15.0) % Plt Count 393 (150-400) 10^3/uL Immature Gran % (Auto) 0.5 (0.0-4.9) % Neut % (Auto) 91.2 H (41-71) % Lymph % (Auto) 4.6 L (24-44) % [place] % (Auto) 2.8 (0-10) % Eos % (Auto) 0.7 (0-6) % Baso % (Auto) 0.2 (0-1) % Neut # (Auto) 16.29 H (1.80-8.00) x10^3/uL Lymph # (Auto) 0.83 (0.60-5.00) 10^3/uL [place] # (Auto) 0.50 (0.00-1.50) 10^3/uL Eos # (Auto) 0.12 (0.00-1.50) 10^3/uL Baso # (Auto) 0.04 (0.00-0.50) 10^3/uL Immature Gran # (Auto) 0.09 (0.00-0.49) 10^3/uL Sodium 138 (136-145) mEq/L Potassium 3.7 (3.5-5.0) mEq/L Chloride 101 (98-106) mEq/L Carbon Dioxide 29 (21-32) mmol/L BUN 17 D (7-18) mg/dL Creatinine 0.8 D (0.6-1.0) mg/dL Est Cr Clr Drug Dosing 52.49 mL/min Estimated GFR (MDRD) > 60 (>=60) mL/min Glucose 119 H D (75-99) mg/dL Calcium 8.8 (8.4-10.1) mg/dL Magnesium 1.9 (1.8-2.4) mg/dL Total Bilirubin 0.5 (0.0-1.0) mg/dL AST 12 L (15-37) U/L ALT 13 (12-78) U/L Alkaline Phosphatase 217 H (46-116) U/L Total Protein 6.4 (6.4-8.2) g/dL Albumin 2.9 L (3.4-5.0) g/dL Meds: Medications Generic Name Dose Route Start Last Admin Trade Name Freq PRN Reason Stop Dose Admin Sodium Chloride 250 mls @ 250 mls/hr 11/29/21 08:15 11/29/21 08:40 Normal Saline IV 250 mls/hr ASDIRECTED [facility] Administration - Re-Assessments/Exams Free Text/Narrative Re-Assessment/Exam: 11/29/21 08:16 States unable to give stool sample at present. Will send for c-diff test if stool sample is collected. 11/29/21 09:10 Pt's pharmacy called and verified that pt did not have any Vancomycin filled. Departure - Departure Time of Disposition: 09:45 Disposition: Refer to Observation Condition: Good Clinical Impression: Weakness, Elevated WBCs, C. difficile diarrhea - Discharge Information Forms: ED Department Discharge Sepsis Event Note (ED) - Focused Exam Vital Signs: Vital Signs Temp Pulse Resp BP Pulse Ox 11/29/21 08:08 97 F 82 20 130/75 96 - Problem List & Annotations (1) Diarrhea SNOMED Code(s): 45691334 Code(s): R19.7 - DIARRHEA, UNSPECIFIED Status: Acute Qualifiers: Diarrhea type: presumed infectious Qualified Code(s): R19.7 - Diarrhea, unspecified (2) Weakness SNOMED Code(s): 38861147 Code(s): R53.1 - WEAKNESS Status: Acute (3) Elevated WBCs SNOMED Code(s): 947657242, 834427990 Code(s): D72.829 - ELEVATED WHITE BLOOD CELL COUNT, UNSPECIFIED Status: Acute - Problem List Review Problem List Initiated/Reviewed/Updated: Yes - My Orders Last 24 Hours: My Active Orders 11/29/21 08:15 Sodium Chloride 0.9% [Normal Saline] 250 ml IV ASDIRECTED - Assessment/Plan Admission H&P: Please use this note as an admission H&P Last 24 Hours: My Active Orders 11/29/21 08:15 Sodium Chloride 0.9% [Normal Saline] 250 ml IV ASDIRECTED Plan: Admit to Observation status for IV fluids, resume po Vancomycin as she did not receive the whole course of it. Will send stool for c-diff when available. Wll monitor wbc.
[2021-11-29] MEDS ORDERED: Sodium Chloride 0.9% 250 ML IV SCH (08:15)
[2021-11-29 08:38] LABS: CHLORIDE,CL 101 mEq/L (98-106); SODIUM,NA 138 mEq/L (136-145)
--- NOTE | 2021-11-29 10:13 | PCM.SN.2 ---
- Free Text/Narrative Note: Pt presented to ER with watery diarrhea. Recently had c-diff and only received approx three days of oral vancomycin. She is weak and has hx of falls. This, along with WBCs of 17.9, has prompted her to be placed in hospital on observation status.
[2021-11-29] MEDS: Lactated Ringers 1,000 ML IV SCH (10:36)
[2021-11-29] MEDS: Calcium Carbonate/Vitamin D3 1250 MG-5 MCG Tab PO SCH (11:00)
[2021-11-29] MEDS: POTASSIUM CHLORIDE 20 MEQ PO SCH (11:14)
[2021-11-29] MEDS: Acetaminophen/HYDROcodone 325-5 MG Tab **OWN MED PO PRN ×2 (11:14→22:36)
[2021-11-29] MEDS: LISINOPRIL HCTZ PO SCH (11:14)
[2021-11-29] MEDS: ROSUVASTATIN 10 MG PO SCH (11:14)
[2021-11-29] MEDS: Clopidogrel 75 MG Tab **OWN MED PO SCH (11:14)
[2021-11-29] MEDS: PROBIOTIC PO SCH (11:14)
[2021-11-29] MEDS: CITALOPRAM 10 MG PO SCH (11:14)
[2021-11-29] MEDS: Vancomycin 125 MG Cap PO SCH ×3 (11:16→19:37)
[2021-11-29] MEDS: ZOLPIDEM 10 MG PO PRN (19:38)
[2021-11-29] MEDS: ROPINIROLE 0.5 MG PO SCH (19:39)
[2021-11-30] MEDS: Lactated Ringers 1,000 ML IV SCH (06:30)
[2021-11-30 07:37] LABS: CHLORIDE,CL 101 mEq/L (98-106); SODIUM,NA 138 mEq/L (136-145)
[2021-11-30] MEDS: Calcium Carbonate/Vitamin D3 1250 MG-5 MCG Tab PO SCH (07:44)
[2021-11-30] MEDS: CITALOPRAM 10 MG PO SCH (07:44)
[2021-11-30] MEDS: PROBIOTIC PO SCH (07:45)
[2021-11-30] MEDS: LISINOPRIL HCTZ PO SCH (07:46)
[2021-11-30] MEDS: ROSUVASTATIN 10 MG PO SCH (07:47)
[2021-11-30] MEDS: POTASSIUM CHLORIDE 20 MEQ PO SCH (07:47)
[2021-11-30] MEDS: Clopidogrel 75 MG Tab **OWN MED PO SCH (07:47)
[2021-11-30] MEDS: Vancomycin 125 MG Cap PO SCH ×4 (07:48→20:13)
[2021-11-30] MEDS: Acetaminophen/HYDROcodone 325-5 MG Tab **OWN MED PO PRN ×2 (07:49→16:05)
--- NOTE | 2021-11-30 09:33 | PCM.PN ---
- General Info Date of Service: 11/30/21 Admission Dx/Problem (Free Text): diarrhea/C-Diff Subjective Update: Patient admits to ongoing generalized malaise. Was admitted yesterday with dehydration, ongoing diarrhea from c-diff and weakness. Was started on oral Vancomycin. States does feel better than yesterday but still weak. Appetite is poor. Trying to push fluids. Ambulating about in the room with her walker. Afebrile. Functional Status: Reports: Pain Controlled, Tolerating Diet, Ambulating - Review of Systems General: Reports: Weakness, Fatigue, Malaise HEENT: Reports: No Symptoms Pulmonary: Denies: Shortness of Breath, Cough Cardiovascular: Denies: Chest Pain, Edema, Lightheadedness Gastrointestinal: Reports: Diarrhea. Denies: Abdominal Pain, Nausea, Vomiting Genitourinary: Reports: No Symptoms Musculoskeletal: Reports: Joint Pain Skin: Reports: No Symptoms Neurological: Reports: Weakness - Patient Data Vitals - Most Recent: Last Vital Signs Temp 97.4 F 11/30/21 03:58 Pulse 69 11/30/21 03:58 Resp 20 11/30/21 03:58 BP 114/52 L 11/30/21 03:58 Pulse Ox 96 11/30/21 03:58 Weight - Most Recent: 150 lb I&O - Last 24 Hours: Intake & Output 11/29/21 11/30/21 11/30/21 22:59 06:59 14:59 Intake Total 995 Balance 995 Lab Results Last 24 Hours: Laboratory Results - last 24 hr 11/30/21 11/30/21 Range/Units 07:15 07:15 WBC 11.0 (4.0-11.0) 10^3/uL RBC 4.25 (4.00-5.50) x10^6/uL Hgb 11.2 L (12.0-16.0) g/dL Hct 36.5 L (37.0-47.0) % MCV 85.9 (83.0-97.0) fL MCH 26.4 L (27.0-32.0) pg MCHC 30.7 L (32.0-36.0) g/dL RDW Coeff of Reji 16.7 H (11.0-15.0) % Plt Count 415 H (150-400) 10^3/uL Immature Gran % (Auto) 0.5 (0.0-4.9) % Neut % (Auto) 75.5 H (41-71) % Lymph % (Auto) 15.8 L (24-44) % [place] % (Auto) 6.2 (0-10) % Eos % (Auto) 1.5 (0-6) % Baso % (Auto) 0.5 (0-1) % Neut # (Auto) 8.29 H (1.80-8.00) x10^3/uL Lymph # (Auto) 1.74 (0.60-5.00) 10^3/uL [place] # (Auto) 0.68 (0.00-1.50) 10^3/uL Eos # (Auto) 0.17 (0.00-1.50) 10^3/uL Baso # (Auto) 0.05 (0.00-0.50) 10^3/uL Immature Gran # (Auto) 0.05 (0.00-0.49) 10^3/uL Sodium 138 (136-145) mEq/L Potassium 4.2 (3.5-5.0) mEq/L Chloride 101 (98-106) mEq/L Carbon Dioxide 30 (21-32) mmol/L BUN 14 (7-18) mg/dL Creatinine 0.7 (0.6-1.0) mg/dL Est Cr Clr Drug Dosing 59.99 mL/min Estimated GFR (MDRD) > 60 (>=60) mL/min Glucose 99 (75-99) mg/dL Calcium 9.1 (8.4-10.1) mg/dL Total Bilirubin 0.5 (0.0-1.0) mg/dL AST 12 L (15-37) U/L ALT 12 (12-78) U/L Alkaline Phosphatase 212 H (46-116) U/L Total Protein 6.5 (6.4-8.2) g/dL Albumin 2.9 L (3.4-5.0) g/dL Beni Results Last 24 Hours: Microbiology 11/29/21 12:28 C. difficile DNA Amplification - Final Stool / Feces Positive C. Diff Dna Med Orders - Current: Current Medications Hydrocodone Bitart/Acetaminophen (Acetaminophen/Hydrocodone 325-5 Mg Tab Own Med) 1 tab PO Q8H PRN PRN Reason: Pain Last Admin: 11/30/21 07:49 Dose: 1 tab Documented by: Calcium Carbonate (Calcium Carbonate/Vitamin D3 1250 Mg-5 Mcg Tab) 2 tab PO DAILY [facility] Last Admin: 11/30/21 07:44 Dose: 2 tab Documented by: Citalopram Hydrobromide (Citalopram 10 Mg Tab Own Med) 20 mg PO DAILY [facility] Last Admin: 11/30/21 07:44 Dose: 20 mg Documented by: Clopidogrel Bisulfate (Clopidogrel 75 Mg Tab Own Med) 75 mg PO DAILY [facility] Last Admin: 11/30/21 07:47 Dose: 75 mg Documented by: Lactated Ringer's (Ringers, Lactated) 1,000 mls @ 50 mls/hr IV ASDIRECTED [facility] Last Admin: 11/30/21 06:30 Dose: 50 mls/hr Documented by: Magnesium Oxide (Magnesium Oxide 250 Mg Tab) 250 mg PO DAILY [facility] Last Admin: 11/30/21 07:46 Dose: 250 mg Documented by: Probiotic Tabs Own (Med) 0 each PO DAILY [facility] Last Admin: 11/30/21 07:45 Dose: 1 each Documented by: Lisinopril-Hctz 10- (12.5 Own Med) 0 each PO DAILY [facility] Last Admin: 11/30/21 07:46 Dose: 1 each Documented by: Potassium Chloride 20 Meq Tab Own Med 0 meq PO DAILY [facility] Last Admin: 11/30/21 07:47 Dose: 1 meq Documented by: Ropinirole 0.5 Mg (Tab Own Med) 0 mg PO BEDTIME [facility] Last Admin: 11/29/21 19:39 Dose: 0.5 mg Documented by: Rosuvastatin 10 Mg * (*Own Med) 0 mg PO DAILY [facility] Last Admin: 11/30/21 07:47 Dose: 10 mg Documented by: Zolpidem 10 Mg Tab * (*Own Med) 0 mg PO BEDTIME PRN PRN Reason: Sleep Last Admin: 11/29/21 19:38 Dose: 10 mg Documented by: Vancomycin HCl (Vancomycin 125 Mg Cap) 125 mg PO QID [facility] Stop: 12/09/21 12:01 Last Admin: 11/30/21 07:48 Dose: 125 mg Documented by: Discontinued Medications Sodium Chloride (Normal Saline) 250 mls @ 250 mls/hr IV ASDIRECTED [facility] Last Admin: 11/29/21 08:40 Dose: 250 mls/hr Documented by: - Exam General: Alert, Oriented HEENT: Mucous Membr. Moist/[place] Neck: Supple Lungs: Clear to Auscultation, Normal Respiratory Effort Cardiovascular: Regular Rate, Regular Rhythm GI/Abdominal Exam: Normal Bowel Sounds, Soft, Non-Tender Extremities: Normal Inspection, No Pedal Edema Skin: Warm, Dry Neurological: No New Focal Deficit - Patient Data Lab Results Last 24 hrs: Laboratory Results - last 24 hr 11/30/21 11/30/21 Range/Units 07:15 07:15 WBC 11.0 (4.0-11.0) 10^3/uL RBC 4.25 (4.00-5.50) x10^6/uL Hgb 11.2 L (12.0-16.0) g/dL Hct 36.5 L (37.0-47.0) % MCV 85.9 (83.0-97.0) fL MCH 26.4 L (27.0-32.0) pg MCHC 30.7 L (32.0-36.0) g/dL RDW Coeff of Reji 16.7 H (11.0-15.0) % Plt Count 415 H (150-400) 10^3/uL Immature Gran % (Auto) 0.5 (0.0-4.9) % Neut % (Auto) 75.5 H (41-71) % Lymph % (Auto) 15.8 L (24-44) % [place] % (Auto) 6.2 (0-10) % Eos % (Auto) 1.5 (0-6) % Baso % (Auto) 0.5 (0-1) % Neut # (Auto) 8.29 H (1.80-8.00) x10^3/uL Lymph # (Auto) 1.74 (0.60-5.00) 10^3/uL [place] # (Auto) 0.68 (0.00-1.50) 10^3/uL Eos # (Auto) 0.17 (0.00-1.50) 10^3/uL Baso # (Auto) 0.05 (0.00-0.50) 10^3/uL Immature Gran # (Auto) 0.05 (0.00-0.49) 10^3/uL Sodium 138 (136-145) mEq/L Potassium 4.2 (3.5-5.0) mEq/L Chloride 101 (98-106) mEq/L Carbon Dioxide 30 (21-32) mmol/L BUN 14 (7-18) mg/dL Creatinine 0.7 (0.6-1.0) mg/dL Est Cr Clr Drug Dosing 59.99 mL/min Estimated GFR (MDRD) > 60 (>=60) mL/min Glucose 99 (75-99) mg/dL Calcium 9.1 (8.4-10.1) mg/dL Total Bilirubin 0.5 (0.0-1.0) mg/dL AST 12 L (15-37) U/L ALT 12 (12-78) U/L Alkaline Phosphatase 212 H (46-116) U/L Total Protein 6.5 (6.4-8.2) g/dL Albumin 2.9 L (3.4-5.0) g/dL Result Diagrams: 11/30/21 07:15 11/30/21 07:15 Beni Results Last 24 hrs: Microbiology 11/29/21 12:28 C. difficile DNA Amplification - Final Stool / Feces Positive C. Diff Dna Sepsis Event Note - Evaluation Sepsis Screening Result: No Definite Risk - Focused Exam Vital Signs: Vital Signs Temp Pulse Resp BP Pulse Ox 11/30/21 03:58 97.4 F 69 20 114/52 L 96 11/30/21 00:00 98.1 F 89 20 90/54 L 98 - Problem List & Annotations (1) C. difficile diarrhea SNOMED Code(s): 7245840785449 Code(s): A04.72 - ENTEROCOLITIS D/T CLOSTRIDIUM DIFFICILE, NOT SPCF RECUR Status: Acute Priority: High Current Visit: Yes (2) Elevated WBCs SNOMED Code(s): 954008249, 653372287 Code(s): D72.829 - ELEVATED WHITE BLOOD CELL COUNT, UNSPECIFIED Status: Acute Priority: High Current Visit: Yes - Problem List Review Problem List Initiated/Reviewed/Updated: Yes - My Orders Last 24 Hours: My Active Orders 12/01/21 05:11 BASIC METABOLIC PANEL,BMP [CHEM] AM C-REACTIVE PROTEIN [CHEM] AM CBC WITH AUTO DIFF [HEME] AM - Assessment Assessment:: C Diff Diarrhea weakness - Plan Plan:: Will stop IV fluids today, encouraged more oral fluid intake. Advance diet. Ambulate. Continue oral vancomycin. Repeat labs in am. Possible discharge home tomorrow.
[2021-11-30] MEDS: ROPINIROLE 0.5 MG PO SCH (20:14)
[2021-11-30] MEDS: ZOLPIDEM 10 MG PO PRN (20:14)
[2021-12-01] MEDS: Acetaminophen/HYDROcodone 325-5 MG Tab **OWN MED PO PRN (03:56)
[2021-12-01 07:27] LABS: CHLORIDE,CL 103 mEq/L (98-106); SODIUM,NA 139 mEq/L (136-145)
[2021-12-01 07:53] VITALS: BP 145/71; PULSE 65
[2021-12-01] MEDS: Vancomycin 125 MG Cap PO SCH ×2 (08:05→09:58)
[2021-12-01] MEDS: Calcium Carbonate/Vitamin D3 1250 MG-5 MCG Tab PO SCH (08:05)
[2021-12-01] MEDS: CITALOPRAM 10 MG PO SCH (08:06)
[2021-12-01] MEDS: PROBIOTIC PO SCH (08:06)
[2021-12-01] MEDS: POTASSIUM CHLORIDE 20 MEQ PO SCH (08:07)
[2021-12-01] MEDS: Clopidogrel 75 MG Tab **OWN MED PO SCH (08:07)
[2021-12-01] MEDS: LISINOPRIL HCTZ PO SCH (08:07)
[2021-12-01] MEDS: ROSUVASTATIN 10 MG PO SCH (08:08)
[2021-12-01] MEDS ORDERED: Vancomycin 125 MG Cap PO ONE (08:54)
--- NOTE | 2021-12-01 12:40 | PCM.DCSUM1 ---
Discharge Summary - Hospital Course Free Text/Narrative:: Rosi is a 71 year old female who presented to the ER with complaints of ongoing c diff. Has been battling for approximately 2-3 weeks. Diarrhea stools very frequent, felt she was getting weak. Has not been taking any meds recently for this. Had a hip repair in October, was covered for an infection and developed c diff. On presentation to ER, WBC was elevated at 17.9. Admitted and started on oral vancomycin and IV fluids. Diagnosis: Stroke: No Modified [place] Scale: No Symptoms at All Modified [place] Scale Score: 0 - Discharge Data Discharge Date: 12/01/21 Discharge Disposition: Home, Self-Care 01 Condition: Good - Referral to Home Health Primary Care Physician: VIVEK Hastings - Discharge Diagnosis/Problem(s) (1) C. difficile diarrhea SNOMED Code(s): 4164039090645 ICD Code: A04.72 - ENTEROCOLITIS D/T CLOSTRIDIUM DIFFICILE, NOT SPCF RECUR Status: Acute Priority: High (2) Elevated WBCs SNOMED Code(s): 949201951, 245833146 ICD Code: D72.829 - ELEVATED WHITE BLOOD CELL COUNT, UNSPECIFIED Status: Acute Priority: High - Patient Summary/Data Complications: none Hospital Course: Patient is doing better. Diarrhea stools have decreased, still loose in nature. She is ambulating with her walker, tolerating well per self. She is eating better now. Remains afebrile. WBC has improved to 6.0 today. BMP is stable. CRP only 2.1. Blood pressure stable. Will discharge home on oral vancomycin. Follow up on the with Ritu - Patient Instructions Diet: GI Soft/Low Residue/Low Fiber Activity: As Tolerated, Full Weight Bearing Showering/Bathing: March Shower - Discharge Plan *PRESCRIPTION DRUG MONITORING PROGRAM REVIEWED*: No *COPY OF PRESCRIPTION DRUG MONITORING REPORT IN PATIENT VERITO: No Prescriptions/Med Rec: Vancomycin [Vancocin 125 MG Capsule] 125 mg PO QID #36 cap Home Medications: Home Meds Clopidogrel [Plavix] 75 mg PO DAILY 10/27/21 [History] Lactobacillus Acidophilus [Probiotic] 1 each PO DAILY #30 capsule 10/27/21 [Rx] Lisinopril/Hydrochlorothiazide [Lisinopril-HCTZ 10-12.5 MG] 1 tab PO DAILY 10/27/21 [History] Potassium Chloride 20 meq PO DAILY #14 tablet.er 10/27/21 [Rx] Rosuvastatin [Crestor] 10 mg PO DAILY 10/27/21 [History] Zolpidem [Ambien] 10 mg PO BEDTIME PRN 10/27/21 [History] rOPINIRole [Requip] 0.5 mg PO BEDTIME 10/27/21 [History] Calcium Carbonate/Vitamin D3 [Calcium Carbonate/Vitamin D 1250 MG - 5 MCG] 2 tab PO DAILY #60 tablet 11/15/21 [Rx] Citalopram [Citalopram HBr] 20 mg PO DAILY #30 tablet 11/15/21 [Rx] Hydrocodone/Acetaminophen [HYDROcodone-Acetaminophen 5-325 MG] 1 each PO Q8HR PRN #30 tab 11/25/21 [Rx] Magnesium Oxide [Mag-Oxide Magnesium] 200 mg PO DAILY #30 tablet 11/25/21 [Rx] Vancomycin [Vancocin 125 MG Capsule] 125 mg PO QID #36 cap 12/01/21 [Rx] Forms: ED Department Discharge Referrals: Flaquita Herron PA [Primary Care Provider] - (Follow up with Ritu on December 11) - Discharge Summary/Plan Comment DC Time >30 min.: No Total # of Minutes for Discharge Time: 25 - General Info Date of Service: 12/05/21 Admission Dx/Problem (Free Text: diarrhea/C-Diff Functional Status: Reports: Pain Controlled, Tolerating Diet, Ambulating - Review of Systems General: Reports: Weakness, Fatigue, Malaise HEENT: Reports: No Symptoms Pulmonary: Denies: Shortness of Breath Cardiovascular: Denies: Chest Pain Gastrointestinal: Reports: Diarrhea. Denies: Abdominal Pain, Nausea, Vomiting Genitourinary: Reports: No Symptoms Musculoskeletal: Reports: Back Pain, Joint Pain Skin: Reports: No Symptoms Neurological: Reports: Weakness - Patient Data Vitals - Most Recent: Last Vital Signs Temp 98.0 F 12/01/21 07:52 Pulse 65 12/01/21 07:52 Resp 12 12/01/21 07:52 BP 145/71 H 12/01/21 07:52 Pulse Ox 100 12/01/21 07:52 Weight - Most Recent: 150 lb Lab Results - Last 24 hrs: Laboratory Results - last 24 hr 12/01/21 12/01/21 Range/Units 07:15 07:15 WBC 6.0 (4.0-11.0) 10^3/uL RBC 3.73 L (4.00-5.50) x10^6/uL Hgb 9.8 L (12.0-16.0) g/dL Hct 31.9 L (37.0-47.0) % MCV 85.5 (83.0-97.0) fL MCH 26.3 L (27.0-32.0) pg MCHC 30.7 L (32.0-36.0) g/dL RDW Coeff of Reji 16.4 H (11.0-15.0) % Plt Count 302 (150-400) 10^3/uL Immature Gran % (Auto) 0.3 (0.0-4.9) % Neut % (Auto) 63.0 (41-71) % Lymph % (Auto) 23.9 L (24-44) % [place] % (Auto) 9.5 (0-10) % Eos % (Auto) 2.3 (0-6) % Baso % (Auto) 1.0 (0-1) % Neut # (Auto) 3.76 (1.80-8.00) x10^3/uL Lymph # (Auto) 1.43 (0.60-5.00) 10^3/uL [place] # (Auto) 0.57 (0.00-1.50) 10^3/uL Eos # (Auto) 0.14 (0.00-1.50) 10^3/uL Baso # (Auto) 0.06 (0.00-0.50) 10^3/uL Immature Gran # (Auto) 0.02 (0.00-0.49) 10^3/uL Sodium 139 (136-145) mEq/L Potassium 4.3 (3.5-5.0) mEq/L Chloride 103 (98-106) mEq/L Carbon Dioxide 29 (21-32) mmol/L BUN 13 (7-18) mg/dL Creatinine 0.7 (0.6-1.0) mg/dL Est Cr Clr Drug Dosing 59.99 mL/min Estimated GFR (MDRD) > 60 (>=60) mL/min Glucose 95 (75-99) mg/dL Calcium 8.5 (8.4-10.1) mg/dL C-Reactive Protein 2.1 H (0.2-0.8) mg/dL Med Orders - Current: Current Medications Discontinued Medications Hydrocodone Bitart/Acetaminophen (Acetaminophen/Hydrocodone 325-5 Mg Tab Own Med) 1 tab PO Q8H PRN PRN Reason: Pain Last Admin: 12/01/21 03:56 Dose: 1 tab Documented by: Calcium Carbonate (Calcium Carbonate/Vitamin D3 1250 Mg-5 Mcg Tab) 2 tab PO DAILY [facility] Last Admin: 12/01/21 08:05 Dose: 2 tab Documented by: Citalopram Hydrobromide (Citalopram 10 Mg Tab Own Med) 20 mg PO DAILY [facility] Last Admin: 12/01/21 08:06 Dose: 20 mg Documented by: Clopidogrel Bisulfate (Clopidogrel 75 Mg Tab Own Med) 75 mg PO DAILY [facility] Last Admin: 12/01/21 08:07 Dose: 75 mg Documented by: Sodium Chloride (Normal Saline) 250 mls @ 250 mls/hr IV ASDIRECTED [facility] Last Admin: 11/29/21 08:40 Dose: 250 mls/hr Documented by: Lactated Ringer's (Ringers, Lactated) 1,000 mls @ 50 mls/hr IV ASDIRECTED [facility] Last Admin: 11/30/21 06:30 Dose: 50 mls/hr Documented by: Magnesium Oxide (Magnesium Oxide 250 Mg Tab) 250 mg PO DAILY [facility] Last Admin: 12/01/21 08:05 Dose: 250 mg Documented by: Probiotic Tabs Own (Med) 0 each PO DAILY [facility] Last Admin: 12/01/21 08:06 Dose: 1 each Documented by: Lisinopril-Hctz 10- (12.5 Own Med) 0 each PO DAILY [facility] Last Admin: 12/01/21 08:07 Dose: 1 each Documented by: Potassium Chloride 20 Meq Tab Own Med 0 meq PO DAILY [facility] Last Admin: 12/01/21 08:07 Dose: 1 meq Documented by: Ropinirole 0.5 Mg (Tab Own Med) 0 mg PO BEDTIME [facility] Last Admin: 11/30/21 20:14 Dose: 0.5 mg Documented by: Rosuvastatin 10 Mg * (*Own Med) 0 mg PO DAILY [facility] Last Admin: 12/01/21 08:08 Dose: 1 mg Documented by: Zolpidem 10 Mg Tab * (*Own Med) 0 mg PO BEDTIME PRN PRN Reason: Sleep Last Admin: 11/30/21 20:14 Dose: 10 mg Documented by: Vancomycin HCl (Vancomycin 125 Mg Cap) 125 mg PO QID [facility] Stop: 12/09/21 12:01 Last Admin: 12/01/21 09:58 Dose: Not Given Documented by: Vancomycin HCl (Vancomycin 125 Mg Cap) 500 mg PO ONETIME ONE Stop: 12/01/21 08:55 Last Admin: 12/01/21 09:59 Dose: 500 mg Documented by: - Exam General: Reports: Alert, Oriented HEENT: Reports: Mucous Membr. Moist/[place] Neck: Reports: Supple Lungs: Reports: Clear to Auscultation, Normal Respiratory Effort Cardiovascular: Reports: Regular Rate, Regular Rhythm GI/Abdominal Exam: Normal Bowel Sounds, Soft, Non-Tender Extremities: Normal Inspection, No Pedal Edema Skin: Reports: Warm, Dry Neurological: Reports: No New Focal Deficit
== END 2021-12-01 10:22 | disposition home or self-care (01) ==
LOC: CC.ED 07:45 → CC.MS 09:46 → UNDOADMOB 09:46 → CC.MS 09:50
PROVIDERS: ADMIT Nurse Practitioner Family; ATTEND Family Medicine
DX: A04.72 Enterocolitis due to Clostridium difficile, not specified as recurrent (principal); R53.1 Weakness; D72.829 Elevated white blood cell count, unspecified; Z79.899 Other long term (current) drug therapy
CPT/HCPCS: 36415; 80048; 80053; 83735; 85025; 86140; 87493; 99284; A9270-GY; G0378; J7050; J7120

== ENCOUNTER 2021-12-08 00:15 | Inpatient (IN) | payer MEDICARE, OTHER ==
[~2021-12-08 00:15] MED LIST changes: -Ondansetron 4 MG/2 ML SDV IVPUSH ONE; +Ondansetron 4 MG/2 ML SDV ONE; -Sodium Chloride 0.9% 1,000 ML IV SCH; -Sodium Chloride 0.9% 10 ML Syringe FLUSH PRN
[2021-12-08 00:46] LABS: CHLORIDE,CL 103 mEq/L (98-106); SODIUM,NA 144 mEq/L (136-145)
[2021-12-08] MEDS ORDERED: Ondansetron 4 MG Tab.DIS PO PRN (01:46)
[2021-12-08] MEDS ORDERED: Sodium Chloride 0.9% 10 ML Syringe FLUSH PRN (01:46)
[2021-12-08] MEDS: Pantoprazole 40 MG Vial IVPUSH SCH ×2 (02:02→13:08)
[2021-12-08] MEDS: Sodium Chloride 0.9% 1,000 ML IV SCH ×3 (02:02→17:10)
[2021-12-08] MEDS: Acetaminophen/HYDROcodone 325-5 MG Tab PO PRN ×2 (02:44→16:33)
[2021-12-08 07:57] LABS: CHLORIDE,CL 105 mEq/L (98-106); SODIUM,NA 142 mEq/L (136-145)
[2021-12-08] MEDS ORDERED: Non-Formulary Medication 1 Each (Lactobacillus Acidophilus [Probiotic] 1 EACH Capsule) PO SCH (08:00)
[2021-12-08] MEDS: Potassium Chloride 10 MEQ Tab.ER PO SCH (09:11)
[2021-12-08] MEDS: Hydrochlorothiazide 12.5 MG Cap PO SCH (09:11)
[2021-12-08] MEDS: Citalopram 10 MG Tab PO SCH (09:11)
[2021-12-08] MEDS: Lisinopril 10 MG Tab PO SCH (09:11)
[2021-12-08] MEDS: Vancomycin 125 MG Cap PO SCH ×4 (09:11→19:50)
[2021-12-08] MEDS: Simvastatin 40 MG Tab PO SCH (19:50)
[2021-12-08] MEDS: rOPINIRole 0.25 MG Tab PO SCH (19:50)
[2021-12-08] MEDS: Zolpidem 5 MG Tab PO PRN (19:53)
[2021-12-09] MEDS: Sodium Chloride 0.9% 1,000 ML IV SCH ×3 (00:53→19:13)
[2021-12-09] MEDS: Pantoprazole 40 MG Vial IVPUSH SCH ×2 (07:32→19:41)
[2021-12-09 07:39] LABS: CHLORIDE,CL 105 mEq/L (98-106); SODIUM,NA 142 mEq/L (136-145)
[2021-12-09] MEDS ORDERED: Lactated Ringers 1,000 ML IV SCH ×2 (08:00→09:00)
[2021-12-09] MEDS ORDERED: Midazolam 1 MG/ML 2 ML SDV IV ONE (09:00)
[2021-12-09] MEDS ORDERED: Meperidine PF 25 MG/ML SDV IV ONE ×2 (09:00→09:05)
[2021-12-09] MEDS: Citalopram 10 MG Tab PO SCH (09:50)
[2021-12-09] MEDS: Vancomycin 125 MG Cap PO SCH ×4 (09:51→19:39)
[2021-12-09] MEDS: Potassium Chloride 10 MEQ Tab.ER PO SCH (09:51)
[2021-12-09] MEDS: Hydrochlorothiazide 12.5 MG Cap PO SCH (09:51)
[2021-12-09] MEDS: Lisinopril 10 MG Tab PO SCH (10:10)
[2021-12-09] MEDS: Multivitamins with Minerals and Iron Liquid ML 240 ML Bottle PO SCH (10:17)
[2021-12-09] MEDS: Sucralfate Suspension 1 GM/10 ML Cup PO SCH ×3 (11:03→19:40)
[2021-12-09] MEDS: Acetaminophen/HYDROcodone 325-5 MG Tab PO PRN ×2 (11:04→19:11)
[2021-12-09] MEDS: Zolpidem 5 MG Tab PO PRN (19:39)
[2021-12-09] MEDS: rOPINIRole 0.25 MG Tab PO SCH (19:39)
[2021-12-09] MEDS: Simvastatin 40 MG Tab PO SCH (19:40)
[2021-12-10] MEDS: Acetaminophen/HYDROcodone 325-5 MG Tab PO PRN (03:07)
[2021-12-10] MEDS: Sucralfate Suspension 1 GM/10 ML Cup PO SCH ×4 (06:44→20:08)
[2021-12-10 07:40] LABS: CHLORIDE,CL 107 mEq/L (98-106); SODIUM,NA 142 mEq/L (136-145)
[2021-12-10] MEDS: Pantoprazole 40 MG Vial IVPUSH SCH ×2 (07:48→20:08)
[2021-12-10] MEDS: Vancomycin 125 MG Cap PO SCH ×4 (07:49→20:08)
[2021-12-10] MEDS: Potassium Chloride 10 MEQ Tab.ER PO SCH (07:49)
[2021-12-10] MEDS: Citalopram 10 MG Tab PO SCH (07:49)
[2021-12-10] MEDS: Hydrochlorothiazide 12.5 MG Cap PO SCH (07:49)
[2021-12-10] MEDS: Lisinopril 10 MG Tab PO SCH (07:56)
[2021-12-10] MEDS: Multivitamins with Minerals and Iron Liquid ML 240 ML Bottle PO SCH (08:00)
[2021-12-10] MEDS: Acetaminophen 325 MG Tab PO PRN ×2 (08:56→18:17)
[2021-12-10] MEDS: rOPINIRole 0.25 MG Tab PO SCH (20:08)
[2021-12-10] MEDS: Simvastatin 40 MG Tab PO SCH (20:09)
[2021-12-10] MEDS: Zolpidem 5 MG Tab PO PRN (20:14)
[2021-12-11] MEDS: Acetaminophen 325 MG Tab PO PRN ×2 (02:43→10:16)
[2021-12-11] MEDS: Sucralfate Suspension 1 GM/10 ML Cup PO SCH (06:38)
[2021-12-11] MEDS: Multivitamins with Minerals and Iron Liquid ML 240 ML Bottle PO SCH (07:20)
[2021-12-11] MEDS: Citalopram 10 MG Tab PO SCH (07:20)
[2021-12-11] MEDS: Vancomycin 125 MG Cap PO SCH (07:20)
[2021-12-11] MEDS: Potassium Chloride 10 MEQ Tab.ER PO SCH (07:20)
[2021-12-11] MEDS: Hydrochlorothiazide 12.5 MG Cap PO SCH (07:20)
[2021-12-11] MEDS: Pantoprazole 40 MG Vial IVPUSH SCH (07:21)
[2021-12-11] MEDS: Lisinopril 10 MG Tab PO SCH (07:21)
== END 2021-12-11 11:05 | disposition home health service (06) | DRG 378 ==
LOC: CC.ED 00:15 → UNDOADMIN 00:45 → CC.MS 00:45
PROVIDERS: ADMIT Physician Assistant Medical; ATTEND Family Medicine
PROC: 0DB38ZX Excision of Lower Esophagus, Via Natural or Artificial Opening Endoscopic, Diagnostic (ICD-10-PCS; principal; 2021-12-09)
PROC: 0DB68ZX Excision of Stomach, Via Natural or Artificial Opening Endoscopic, Diagnostic (ICD-10-PCS; 2021-12-09)
PROC: 30233N1 Transfusion of Nonautologous Red Blood Cells into Peripheral Vein, Percutaneous Approach (ICD-10-PCS; 2021-12-10)
DX: K27.4 Chronic or unspecified peptic ulcer, site unspecified, with hemorrhage (principal); K92.2 Gastrointestinal hemorrhage, unspecified; A04.72 Enterocolitis due to Clostridium difficile, not specified as recurrent; E78.00 Pure hypercholesterolemia, unspecified; I10 Essential (primary) hypertension; F32.A Depression, unspecified; Z87.891 Personal history of nicotine dependence; Z79.899 Other long term (current) drug therapy; Z79.02 Long term (current) use of antithrombotics/antiplatelets
CPT/HCPCS: 36415; 36430; 80048; 80053; 81001; 81003; 83735; 85014; 85018; 85025; 85027; 86140; 86850; 86900; 86901; 86920; 86922; 87081; 99285; A9270-GY; C9113; J2175; J2250; J7030; J7120; P9016

== ENCOUNTER 2021-12-12 16:12 | Inpatient (IN) | payer MEDICARE, OTHER ==
[2021-12-12] MEDS ORDERED: Ondansetron 4 MG Tab.DIS PO PRN (16:25)
[2021-12-12] MEDS ORDERED: Acetaminophen 325 MG Tab PO PRN (16:35)
[2021-12-12] MEDS ORDERED: Acetaminophen/HYDROcodone 325-5 MG Tab PO PRN (16:48)
[2021-12-12] MEDS: Sucralfate Suspension 1 GM/10 ML Cup PO SCH (19:25)
[2021-12-12] MEDS: Zolpidem 5 MG Tab PO PRN (19:25)
[2021-12-12] MEDS: rOPINIRole 0.25 MG Tab PO SCH (19:25)
[2021-12-13] MEDS: Sucralfate Suspension 1 GM/10 ML Cup PO SCH ×2 (06:12→19:34)
[2021-12-13] MEDS ORDERED: [UNRECOGNIZED DRUG - OTHER] PO SCH (08:00)
[2021-12-13] MEDS: Lisinopril 10 MG Tab PO SCH (08:00)
[2021-12-13] MEDS: Calcium Carbonate/Vitamin D3 1250 MG-5 MCG Tab PO SCH (08:00)
[2021-12-13] MEDS: Hydrochlorothiazide 12.5 MG Cap PO SCH (08:00)
[2021-12-13] MEDS: Sertraline 25 MG Tab PO SCH (08:01)
[2021-12-13] MEDS: atorvaSTATin 20 MG Tab PO SCH (08:01)
[2021-12-13] MEDS: Potassium Chloride 10 MEQ Tab.ER PO SCH (08:01)
[2021-12-13] MEDS: Acetaminophen 325 MG Tab PO PRN ×3 (08:02→19:39)
[2021-12-13] MEDS: rOPINIRole 0.25 MG Tab PO SCH (19:34)
[2021-12-13] MEDS: Zolpidem 5 MG Tab PO PRN (19:35)
[2021-12-14] MEDS: Acetaminophen 325 MG Tab PO PRN ×3 (00:26→20:11)
[2021-12-14] MEDS: Sucralfate Suspension 1 GM/10 ML Cup PO SCH ×2 (06:53→20:10)
[2021-12-14] MEDS ORDERED: Multivitamin Tab PO SCH (08:00)
[2021-12-14] MEDS: Potassium Chloride 10 MEQ Tab.ER PO SCH (08:11)
[2021-12-14] MEDS: Hydrochlorothiazide 12.5 MG Cap PO SCH (08:11)
[2021-12-14] MEDS: atorvaSTATin 20 MG Tab PO SCH (08:11)
[2021-12-14] MEDS: Calcium Carbonate/Vitamin D3 1250 MG-5 MCG Tab PO SCH (08:12)
[2021-12-14] MEDS: Lisinopril 10 MG Tab PO SCH (08:12)
[2021-12-14] MEDS: Lactobacillus Rhamnosus GG (Probiotic) Cap PO SCH (08:12)
[2021-12-14] MEDS: Sertraline 25 MG Tab PO SCH (08:12)
[2021-12-14] MEDS: Ferrous Sulfate 324 MG Tab.EC PO SCH (08:14)
[2021-12-14] MEDS ORDERED: Aluminum Hydroxide/Magnesium Hydroxide/Simethicone Susp 30 ML Cup PO ONE (13:05)
[2021-12-14] MEDS: Zolpidem 5 MG Tab PO PRN (20:09)
[2021-12-14] MEDS: rOPINIRole 0.25 MG Tab PO SCH (20:10)
[2021-12-15] MEDS: Sucralfate Suspension 1 GM/10 ML Cup PO SCH ×2 (07:19→19:43)
[2021-12-15] MEDS: Lisinopril 10 MG Tab PO SCH (08:19)
[2021-12-15] MEDS: Sertraline 25 MG Tab PO SCH (08:19)
[2021-12-15] MEDS: Lactobacillus Rhamnosus GG (Probiotic) Cap PO SCH (08:19)
[2021-12-15] MEDS: Hydrochlorothiazide 12.5 MG Cap PO SCH (08:19)
[2021-12-15] MEDS: atorvaSTATin 20 MG Tab PO SCH (08:20)
[2021-12-15] MEDS: Ferrous Sulfate 324 MG Tab.EC PO SCH (08:20)
[2021-12-15] MEDS: Calcium Carbonate/Vitamin D3 1250 MG-5 MCG Tab PO SCH (08:20)
[2021-12-15] MEDS: Potassium Chloride 10 MEQ Tab.ER PO SCH (08:20)
[2021-12-15] MEDS: Loperamide 2 MG Cap PO PRN ×2 (09:30→11:48)
[2021-12-15] MEDS: Acetaminophen 325 MG Tab PO PRN ×2 (14:39→19:43)
[2021-12-15] MEDS: Zolpidem 5 MG Tab PO PRN (19:43)
[2021-12-15] MEDS: rOPINIRole 0.25 MG Tab PO SCH (19:43)
[2021-12-16] MEDS: Sucralfate Suspension 1 GM/10 ML Cup PO SCH ×2 (07:37→16:31)
[2021-12-16] MEDS: Lisinopril 10 MG Tab PO SCH (07:51)
[2021-12-16] MEDS: Potassium Chloride 10 MEQ Tab.ER PO SCH (07:51)
[2021-12-16] MEDS: Sertraline 25 MG Tab PO SCH (07:51)
[2021-12-16] MEDS: Lactobacillus Rhamnosus GG (Probiotic) Cap PO SCH (07:52)
[2021-12-16] MEDS: Ferrous Sulfate 324 MG Tab.EC PO SCH (07:52)
[2021-12-16] MEDS: Calcium Carbonate/Vitamin D3 1250 MG-5 MCG Tab PO SCH (07:52)
[2021-12-16] MEDS: Hydrochlorothiazide 12.5 MG Cap PO SCH (07:52)
[2021-12-16] MEDS: atorvaSTATin 20 MG Tab PO SCH (07:52)
[2021-12-16] MEDS: Loperamide 2 MG Cap PO PRN ×4 (14:11→23:16)
[2021-12-16] MEDS: Acetaminophen 325 MG Tab PO PRN (15:16)
[2021-12-16] MEDS: rOPINIRole 0.25 MG Tab PO SCH (19:34)
[2021-12-16] MEDS: Zolpidem 5 MG Tab PO PRN (19:34)
[2021-12-17] MEDS: Sucralfate Suspension 1 GM/10 ML Cup PO SCH ×2 (06:34→16:12)
[2021-12-17] MEDS: atorvaSTATin 20 MG Tab PO SCH (07:07)
[2021-12-17] MEDS: Lactobacillus Rhamnosus GG (Probiotic) Cap PO SCH (07:07)
[2021-12-17] MEDS: Ferrous Sulfate 324 MG Tab.EC PO SCH (07:07)
[2021-12-17] MEDS: Calcium Carbonate/Vitamin D3 1250 MG-5 MCG Tab PO SCH (07:07)
[2021-12-17] MEDS: Hydrochlorothiazide 12.5 MG Cap PO SCH (07:07)
[2021-12-17] MEDS: Potassium Chloride 10 MEQ Tab.ER PO SCH (07:07)
[2021-12-17] MEDS: Lisinopril 10 MG Tab PO SCH (07:08)
[2021-12-17] MEDS: Sertraline 25 MG Tab PO SCH (07:08)
[2021-12-17] MEDS: Acetaminophen 325 MG Tab PO PRN ×3 (07:08→19:29)
[2021-12-17] MEDS: Loperamide 2 MG Cap PO PRN ×3 (07:09→19:26)
[2021-12-17] MEDS: rOPINIRole 0.25 MG Tab PO SCH (19:25)
[2021-12-17] MEDS: Zolpidem 5 MG Tab PO PRN (19:26)
[2021-12-18] MEDS: Acetaminophen 325 MG Tab PO PRN (04:48)
[2021-12-18] MEDS: Sucralfate Suspension 1 GM/10 ML Cup PO SCH (06:11)
[2021-12-18] MEDS: Potassium Chloride 10 MEQ Tab.ER PO SCH (07:31)
[2021-12-18] MEDS: atorvaSTATin 20 MG Tab PO SCH (07:31)
[2021-12-18] MEDS: Hydrochlorothiazide 12.5 MG Cap PO SCH (07:31)
[2021-12-18] MEDS: Sertraline 25 MG Tab PO SCH (07:31)
[2021-12-18] MEDS: Lactobacillus Rhamnosus GG (Probiotic) Cap PO SCH (07:31)
[2021-12-18] MEDS: Calcium Carbonate/Vitamin D3 1250 MG-5 MCG Tab PO SCH (07:31)
[2021-12-18] MEDS: Ferrous Sulfate 324 MG Tab.EC PO SCH (07:31)
[2021-12-18] MEDS: Lisinopril 10 MG Tab PO SCH (07:32)
== END 2021-12-18 10:25 | disposition home or self-care (01) | DRG 948 ==
LOC: UNDOADMIN 16:12 → CC.MS 16:12
PROVIDERS: ADMIT Nurse Practitioner Family; ATTEND Family Medicine
DX: R53.1 Weakness (principal); F41.9 Anxiety disorder, unspecified; F32.A Depression, unspecified; W19.XXXA Unspecified fall, initial encounter; E78.00 Pure hypercholesterolemia, unspecified; I10 Essential (primary) hypertension; R15.9 Full incontinence of feces; Z79.01 Long term (current) use of anticoagulants; Z79.899 Other long term (current) drug therapy; Y92.009 Unspecified place in unspecified non-institutional (private) residence as the place of occurrence of the external cause
CPT/HCPCS: 82270; 82272; 87493; 97110-GP; 97161-GP; A9270-GY

== ENCOUNTER → 2022-09-19 | Day surgery (SDC) | payer MEDICARE ==
[~2022-09-19] MED LIST changes: +Ketamine 200 MG/20 ML MDV ONE; +Lactated Ringers 1,000 ML IV SCH; +Lidocaine 2% 20 ML MDV ONE; -Ondansetron 4 MG/2 ML SDV ONE; +Propofol 200 MG/20 ML SDV ONE; +fentaNYL 50 MCG/ML SDV ONE
== END ==
LOC: CC.SDS 08:59
PROVIDERS: ATTEND Family Medicine
DX: K21.00 Gastro-esophageal reflux disease with esophagitis, without bleeding (principal); K29.80 Duodenitis without bleeding; K29.50 Unspecified chronic gastritis without bleeding; K44.9 Diaphragmatic hernia without obstruction or gangrene; K31.89 Other diseases of stomach and duodenum; I10 Essential (primary) hypertension; I48.91 Unspecified atrial fibrillation; E66.9 Obesity, unspecified; Z68.24 Body mass index [BMI] 24.0-24.9, adult; Z79.899 Other long term (current) drug therapy
CPT/HCPCS: 00731; 87081; J2704; J3010; J7120